=== PATIENT | male | born 1960 | race Caucasian/White ===

== ENCOUNTER 2017-12-09 05:13 | Inpatient (IN) | payer BC, SELFPAY ==
--- OUTSIDE RECORDS SUMMARY | 2017-12-09 05:15 | XMS REPORT | Clinical Summary ---
:1960 Author Organization [facility] Address [address] [place] [address] Phone Care Team Providers Name Role Phone Unavailable Primary Care Provider Unavailable Allergies No Known Allergies Current Medications Prescription Sig. Disp. Refills Start Date End Date Status METFORMIN HCL Take by mouth Active (METFORMIN ORAL) New RX will start today . HYDROcodone-acetaminop Take 1 tablet Active hen (NORCO 7.5-325) by mouth every 7.5-325 mg per tablet 6 (six) hours as needed for Pain. lisinopril Take 1 tablet 30 tablet 0 02/21/2016 02/20/2017 (PRINIVIL,ZESTRIL) 5 (5 mg total) by MG tablet mouth daily. 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
[2017-12-09 06:21] LABS: Absolute Lymphocytes (CBC) 1.8 K/uL (0.7-4.9); Absolute Monocytes 0.5 K/uL (0.1-1.3); Absolute Neutrophil 4.9 K/uL (1.8-8.0); Basophils % 0.6 % (0-1.3); Hematocrit 39.2 % (39.6-49.0); Lymphocytes % 24.7 % (15.3-44.8); MCH 30.8 pg (27.0-35.0); MCV 91.6 fL (80-100); MPV 9.3 fL (7.6-11.3); Monocytes % 6.2 % (3.3-12.3); RBC Red Blood Cell Count 4.28 M/uL (4.33-5.43)
[2017-12-09 06:52] LABS: ALT/SGPT 28 U/L (12-78); AST/SGOT 22 U/L (15-37); Albumin 3.6 g/dL (3.4-5.0); Alkaline Phosphatase 163 U/L (45-117); BUN Blood Urea Nitrogen 13 mg/dL (7-18); Bicarbonate 28 mmol/L (21-32); Bilirubin Direct 0.2 mg/dL (0-0.2); Bilirubin Total 0.5 mg/dL (0.2-1.0); Glucose Level 275 mg/dL (74-106); Potassium 4.3 mmol/L (3.5-5.1); Protein, Total 7.8 g/dL (6.4-8.2); Sodium Level 133 mmol/L (136-145)
[2017-12-09] MEDS ORDERED: PIPER/TAZO/NS 3.375gm 3.375 GM/100 ML BAG ONE (08:00)
[2017-12-09] MEDS ORDERED: VANCOMYCIN 1.75 GM in NA CHLORIDE 0.9% 500 ML IVPB ONE (09:00)
[2017-12-09] MEDS ORDERED: FENTANYL CITR 100 MCG/2 ML ONE (09:08)
--- NOTE | 2017-12-09 09:34 | RAD REPORT ---
EXAM DESCRIPTION: CT - Lower Ext Wo Con W/ Mpr - 12/09/2017 8:56 am CLINICAL HISTORY: Left foot and ankle pain with swelling x2 months. Lateral soft tissue wound. COMPARISON: December 09, 2017 x-ray TECHNIQUE: Computed axial tomography of the left lower extremity was performed with coronal and sagi ttal reconstruction All CT scans are performed using dose optimization technique as appropriate and may include automated exposure control or mA/KV adjustment according to patient size. FINDINGS: Extensive bony fragmentation involves the distal tibia/fibula, calcaneus and talus. The ta rochelle is dislocated medially with respect to the tibia. A talonavicular dislocation is present. There is extensive edema involving the ankle and foot. Extensive degenerative changes involve the midfoot. This consists of erosions, sclerosis and bony for No definite acute fracture is seen. Evaluation for osteomyelitis is difficult given the extensive bon y fragmentation without obvious visualization of osteomyelitis. IMPRESSION: Extensive bony fragmentation involves the ankle and hindfoot presumably representing a n europathic joint. A medial dislocation of the talus with respect to the tibia is present. A dislocation involves the talonavicular joint.
--- NOTE | 2017-12-09 09:43 | RAD REPORT ---
EXAM DESCRIPTION: RAD - Ankle Left 3 View -12/09/2017 6:28 am CLINICAL HISTORY: Left ankle pain FINDINGS: Extensive bony fragmentation involves the ankle and hindfoot. Presumably this is secondary to a neuropathic joint. Bony fragmentation also involves the midfoot. No acute fracture is visualized. Extensive soft tissue swelling is present The talus is dislocated medially to the tibia. A dislocation involves the talonavicular joint.
--- NOTE | 2017-12-09 09:43 | RAD REPORT ---
EXAM DESCRIPTION: RAD - Foot Left 3 View - 12/09/2017 6:29 am CLINICAL HISTORY: Left Foot pain FINDINGS: Extensive bony fragmentation involves the ankle and hindfoot. Presumably this is secondary to a neuropathic joint. Bony fragmentation also involves the midfoot. No acute fracture is visualized. Extensive soft tissue swelling is present The talus is dislocated medially to the tibia. A dislocation involves the talonavicular joint.
[2017-12-09 10:18] LABS: Urine Blood NEGATIVE (NEG); Urine Glucose 2+ (NEG); Urine Protein NEGATIVE (NEG); Urine Specific Gravity 1.025 (1.005-1.030); Urine pH 5.5 (5.0-7.0)
--- NOTE | 2017-12-09 10:39 | ER ---
Nurse's Notes [facility] Name: Vitaliy Cross Age: 57 yrs Sex: Male : 1960 Arrival Date: 12/09/2017 Time: 05:16 Bed 14 Private MD: Parth Black H Diagnosis: left ankle acute on chronic fracture and dislocation;Left ankle pressure ulcer;Hyperglycemia, unspecified Presentation: 12/09 05:15 Presenting complaint: Patient states: that for the past couple of months that his left fc ankle/foot have been swelling. Went to see Dr Black and was given Indomethacin. Then about 2 days ago he noticed a wound to the outer side of his left ankle. The pain and wound have gotten worse. Transition of care: patient was not received from another setting of care. Onset of symptoms was September 2017. Risk Assessment: Do you want to hurt yourself or someone else? Patient reports no desire to harm self or others. Initial Sepsis Screen: Does the patient meet any 2 criteria? No. Patient's initial sepsis screen is negative. Does the patient have a suspected source of infection? No. Patient's initial sepsis screen is negative. Care prior to arrival: None. 05:15 Method Of Arrival: Ambulatory 05:15 Acuity: LEVY 3 Triage Assessment: 05:15 General: Appears uncomfortable, obese, Behavior is calm, cooperative, appropriate for age. Pain: Complains of pain in left foot Pain currently is 4 out of 10 on a pain scale. at worst was 10 out of 10 on a pain scale. Quality of pain is described as aching, throbbing, Pain began 2 months ago Is continuous, Aggravated by increased activity, repositioning, weight bearing. EENT: No deficits noted. Neuro: Level of Consciousness is awake, alert, obeys commands, Oriented to person, place, time, situation. Cardiovascular: No deficits noted. Respiratory: No deficits noted. GI: No deficits noted. : No deficits noted. Derm: Skin is pink, warm \T\ dry. Wound noted left lateral malleolus Wound is open area with yellow tissue and yellow/red drainage. Musculoskeletal: Circulation, motion, and sensation intact. Capillary refill < 3 seconds, Range of motion: limited in left ankle Swelling present in left foot Reports pain in left foot. Historical: - Allergies: 05:40 Banana; fc - Home Meds: 05:40 indomethacin 50 mg Oral cap 1 cap 2 times per day [Active]; Metformin Oral 2 times per fc day [Active]; Glipizide Oral [Active]; - PMHx: 05:40 Diabetes - NIDDM; Hypertension; fc - PSHx: 05:40 Knee surgery; hand surg; fc - Immunization history:: Last tetanus immunization: up to date. - Social history:: Smoking status: Patient/guardian denies using tobacco, the patient reports quitting approximately .5 years ago. - Ebola Screening: : Patient negative for fever greater than or equal to 101.5 degrees Fahrenheit, and additional compatible Ebola Virus Disease symptoms Patient denies exposure to infectious person Patient denies travel to an Ebola-affected area in the 21 days before illness onset. Screenin:38 Abuse screen: Denies threats or abuse. Nutritional screening: No deficits noted. fc Tuberculosis screening: No symptoms or risk factors identified. Fall Risk No fall in past 12 months (0 pts). Secondary diagnosis (15 points) impaired mobility, IV access (20 points). Ambulatory Aid- Crutches/Cane/Walker (15 pts). Gait- Weak (10 pts.). Mental Status- Overestimates/Forgets Limitations (15 pts.). Total Greer Fall Scale indicates High Risk Score (45 or more points). Fall prevention measures have been instituted. Side Rails Up X 2 Placed Close to Nursing Station Frequent Obs/Assessments Occuring As available patient and family educated on Fall Prevention Program and Strategies. Assessment: 05:37 Reassessment: see triage assessment. 10:30 Reassessment: at bedside updating pt on POC and and need for admit, pt and pt sg family stated understanding. 11:35 Reassessment: Patient appears in no apparent distress at this time. Patient and/or sg family updated on plan of care and expected duration. Pain level reassessed. Patient is alert, oriented x 3, equal unlabored respirations, skin warm/dry/pink. office technologist at bedside at this time. Vital Signs: 05:37 BP 165 / 88; Pulse 83; Resp 18; Temp 98.1(O); Pulse Ox 100% on R/A; Weight 104.33 kg (R); Height 5 ft. 7 in. (170.18 cm) (R); Pain 4/10; 07:14 BP 135 / 76; Pulse 74; Resp 18; Pulse Ox 98% ; sv 13:32 BP 132 / 70; Pulse 77; Resp 17; Temp 98.1; Pulse Ox 100% on R/A; sg 05:37 Body Mass Index 36.02 (104.33 kg, 170.18 cm) ED Course: 05:16 Patient arrived in ED. al2 05:17 Parth Black DO is Private Physician. al2 05:30 Initial lab(s) drawn, by me, sent to lab. Inserted saline lock: 20 gauge in left fc antecubital area, using aseptic technique. Blood collected. 05:34 Triage completed. fc 05:37 Arm band placed on Patient placed in an exam room, on a stretcher. fc 05:38 Patient has correct armband on for positive identification. Bed in low position. Call fc light in reach. Pulse ox on. NIBP on. 05:47 Yony Montes MD is Attending Physician. ps1 05:48 Zain Rdz, RN is Primary Nurse. ao 06:09 EKG done, by ED staff, reviewed by Yony Montes MD. bb 06:25 X-ray completed. Portable x-ray completed in exam room. Patient tolerated procedure kw well. 06:26 Foot Left 3 View XRAY In Process Unspecified. EDMS 06:26 Ankle Left 3 View XRAY In Process Unspecified. EDMS 07:00 No provider procedures requiring assistance completed. sg 07:14 Attending Physician role handed off by Yony Montes MD wa 07:14 Anil Dave MD is Attending Physician. wa 07:16 Primary Nurse role handed off by Zain Rdz, RN sv 07:17 Mark River, MELVIN is Primary Nurse. sg 07:32 Basic Metabolic Panel Sent. sv 07:32 Blood Culture Adult (2) Sent. sv 07:32 C-Reactive Protein Sent. sv 07:32 CBC with Diff Sent. sv 07:32 Lactate Sent. sv 07:32 LFT's Sent. sv 07:32 Sed Rate Sent. sv 08:47 Patient moved to NC via wheelchair. kw1 08:56 Lower Ext Wo Con W/ Mpr In Process Unspecified. EDMS 10:36 Tex York DO is Hospitalizing Provider. wa 11:00 Patient admitted, IV remains in place. intact, No redness/swelling at site. Pressure sg dressing applied. 11:40 Ultrasound completed. Patient tolerated well. aa4 Administered Medications: 08:11 Drug: Zosyn 3.375 grams Route: IVPB; Infused Over: 60 mins; Site: right antecubital; sg 09:21 Follow up: Response: No adverse reaction; IV Status: Completed infusion sg 09:17 Drug: fentaNYL (PF) 50 mcg Route: IVP; Site: right antecubital; sg 09:30 Follow up: Response: No adverse reaction; Pain is decreased sg 09:21 Drug: vancoMYCIN 1 grams Route: IVPB; Infused Over: 2 hrs; Site: right antecubital; sg 12:10 Follow up: Response: No adverse reaction; IV Status: Completed infusion sg Outcome: 10:38 Decision to Hospitalize by Provider. wa 13:30 Admitted to Med/surg accompanied by tech, via stretcher, room 206, Report called to yvonne Ellison RN 13:30 Condition: stable 13:30 Instructed on the need for admit, safety practices, Demonstrated understanding of instructions. 13:39 Patient left the ED. snw Signatures: Dispatcher [employer] EDMS Rabia Galarza RN RN sv Gay, Steven, RN RN sg Therrien, Shelly, DISEASE EDUCATION SPECIALIST-C DISEASE EDUCATION SPECIALIST-Csnw Rupal Feilz RN Maria Guadalupe Franklin RN RN Kaye Villegas aaAlyson Alexander Alex, RN RN ao Appiah, William, MD MD wa Singer, Phillip, MD MD ps1 Wilhelm, Kimberly kw1 Love, Angelica al2
--- NOTE | 2017-12-09 10:39 | EDPHYS ---
Physician Documentation [facility] Name: Vitaliy Cross Age: 57 yrs Sex: Male : 1960 Arrival Date: 12/09/2017 Time: 05:16 Bed 14 Private MD: Parth Black H ED Physician Anil Dave HPI: 12/09 05:47 This 57 yrs old Male presents to ER via Ambulatory with complaints of Foot ps1 Pain. 05:47 2 month history of left foot swelling. Hx of DM and Gout. Called PCP this week as he ps1 now has an open sore on his foot. Did not get a call back so came in for evaluation. States his foot got more swollen over the last 2 weeks. Pain moderate. No fever. . Historical: - Allergies: 05:40 Banana; fc - Home Meds: 05:40 indomethacin 50 mg Oral cap 1 cap 2 times per day [Active]; Metformin Oral 2 times per fc day [Active]; Glipizide Oral [Active]; - PMHx: 05:40 Diabetes - NIDDM; Hypertension; fc - PSHx: 05:40 Knee surgery; hand surg; fc - Immunization history:: Last tetanus immunization: up to date. - Social history:: Smoking status: Patient/guardian denies using tobacco, the patient reports quitting approximately .5 years ago. - Ebola Screening: : Patient negative for fever greater than or equal to 101.5 degrees Fahrenheit, and additional compatible Ebola Virus Disease symptoms Patient denies exposure to infectious person Patient denies travel to an Ebola-affected area in the 21 days before illness onset. ROS: 05:47 Constitutional: Negative for fever, chills, and weight loss, Eyes: Negative for injury, ps1 pain, redness, and discharge, Cardiovascular: Negative for chest pain, palpitations, and edema, Respiratory: Negative for shortness of breath, cough, wheezing, and pleuritic chest pain, Abdomen/GI: Negative for abdominal pain, nausea, vomiting, diarrhea, and constipation. 05:47 Skin: Negative for injury, rash, and discoloration, Neuro: Negative for headache, weakness, numbness, tingling, and seizure. 05:47 MS/extremity: Positive for rash, tenderness, warmth. Exam: 05:47 Constitutional: This is a well developed, well nourished patient who is awake, alert, ps1 and in no acute distress. Head/Face: Normocephalic, atraumatic. Eyes: Pupils equal round and reactive to light, extra-ocular motions intact. Lids and lashes normal. Conjunctiva and sclera are non-icteric and not injected. Chest/axilla: Normal chest wall appearance and motion. Nontender with no deformity. No lesions are appreciated. Cardiovascular: Regular rate and rhythm. No gallops, murmurs, or rubs. Normal PMI, no JVD. No pulse deficits. Respiratory: Lungs have equal breath sounds bilaterally, clear to auscultation and percussion. No rales, rhonchi or wheezes noted. No increased work of breathing, no retractions or nasal flaring. 05:47 Musculoskeletal/extremity: Extremities: grossly normal except: noted in the left lateral malleolus and left foot: erythema, swelling, open wound with serous drainage. . Vital Signs: 05:37 BP 165 / 88; Pulse 83; Resp 18; Temp 98.1(O); Pulse Ox 100% on R/A; Weight 104.33 kg fc (R); Height 5 ft. 7 in. (170.18 cm) (R); Pain 4/10; 07:14 BP 135 / 76; Pulse 74; Resp 18; Pulse Ox 98% ; sv 13:32 BP 132 / 70; Pulse 77; Resp 17; Temp 98.1; Pulse Ox 100% on R/A; sg 05:37 Body Mass Index 36.02 (104.33 kg, 170.18 cm) MDM: 05:55 Patient medically screened. ps1 10:21 Differential diagnosis: fracture, sprain, osteoarthritis? fracture? dislocation?. Data wa reviewed: vital signs, nurses notes. Test interpretation: by ED physician or midlevel provider: labs noted for hyperglycemia and elevated CRP and SED rate. CT L ankle: Extensive bony fragments of L ankle and hind foot. Medial dislocation of talus with respect to tibia. talonavicular joint dislocation. Physician consultation: Tex York DO. Admission orders: after a detailed discussion of the patient's condition and case, the admit orders are written by me. ED course: IV abx given for concern of osteo. splint placed. suspect dislocation is chronic. pt w/ h/o untreated L ankle dislocation at age 19. will consult ortho.. 12/09 05:53 Order name: Basic Metabolic Panel ps1 12/09 05:53 Order name: Blood Culture Adult (2) ps1 12/09 05:53 Order name: C-Reactive Protein ps1 12/09 05:53 Order name: CBC with Diff ps1 12/09 05:53 Order name: Lactate ps1 12/09 05:53 Order name: LFT's ps1 12/09 05:53 Order name: Sed Rate ps1 12/09 05:53 Order name: Basic Metabolic Panel; Complete Time: 07:09 EDMS 12/09 05:53 Order name: Blood Culture EDMS 12/09 05:53 Order name: C-Reactive Protein; Complete Time: 07:09 EDMS 12/09 05:53 Order name: CBC with Automated Diff; Complete Time: 07:09 EDMS 12/09 05:53 Order name: Lactate; Complete Time: 07:09 EDMS 12/09 05:53 Order name: Liver (Hepatic) Function; Complete Time: 07:09 EDMS 12/09 05:53 Order name: Sedimentation Rate, Westergren; Complete Time: 07:09 EDMS 12/09 05:53 Order name: Cardiac monitoring; Complete Time: 05:54 ps1 12/09 05:53 Order name: EKG - Nurse/Tech; Complete Time: 06:09 ps1 12/09 05:53 Order name: IV Saline Lock - Large Bore; Complete Time: 05:54 ps1 12/09 05:53 Order name: Labs collected and sent; Complete Time: 06:09 ps1 12/09 05:53 Order name: O2 Per Protocol; Complete Time: 05:54 ps1 12/09 05:53 Order name: Foot Left 3 View XRAY; Complete Time: 10:18 ps1 12/09 05:54 Order name: Ankle Left 3 View XRAY; Complete Time: 10:18 ps1 12/09 07:42 Order name: Urine Dipstick--Ancillary (enter results) em1 12/09 08:37 Order name: Lower Ext Wo Con W/ Mpr; Complete Time: 10:16 EDMS 12/09 10:52 Order name: EKG Electrocardiogram EDMS 12/09 10:53 Order name: Diet Ada [address]; Complete Time: 10:54 sg 12/09 11:48 Order name: US EDMS 12/09 05:53 Order name: O2 Sat Monitoring; Complete Time: 05:54 ps1 12/09 05:53 Order name: Urine Dipstick-Ancillary (obtain specimen); Complete Time: 07:39 ps1 Administered Medications: 08:11 Drug: Zosyn 3.375 grams Route: IVPB; Infused Over: 60 mins; Site: right antecubital; sg 09:21 Follow up: Response: No adverse reaction; IV Status: Completed infusion sg 09:17 Drug: fentaNYL (PF) 50 mcg Route: IVP; Site: right antecubital; sg 09:30 Follow up: Response: No adverse reaction; Pain is decreased sg 09:21 Drug: vancoMYCIN 1 grams Route: IVPB; Infused Over: 2 hrs; Site: right antecubital; sg 12:10 Follow up: Response: No adverse reaction; IV Status: Completed infusion Disposition: 12/09/17 10:38 Hospitalization ordered by Tex York for Inpatient Admission. Preliminary diagnosis are left ankle acute on chronic fracture and dislocation, Left ankle pressure ulcer, Hyperglycemia, unspecified. - Bed requested for Telemetry/MedSurg (Inpatient). - Status is Inpatient Admission. snw - Condition is Stable. - Problem is an acute exacerbation. - Symptoms have improved. UTI on Admission? No Signatures: Dispatcher [employer] [facility] Heidy Sheth RN RN Mark River RN RN María Moffett FNP-C STRINGING MACHINE OPERATOR-Csnw Rupal Feliz RN RN Anil Dave MD MD ga Yony Montes MD MD ps1 Corrections: (The following items were deleted from the chart) 10:47 10:18 Splint ordered. [facility] 10:51 08:48 EKG Electrocardiogram ordered. [facility] 13:18 10:38 Hospitalization Ordered by Tex York DO for Inpatient Admission. Preliminary diagnosis is left ankle acute on chronic fracture and dislocation; Left ankle pressure ulcer; Hyperglycemia, unspecified. Bed requested for Telemetry/MedSurg (Inpatient). Status is Inpatient Admission. Condition is Stable. Problem is an acute exacerbation. Symptoms have improved. UTI on Admission? No. ga 13:39 13:18 12/09/2017 10:38 Hospitalization Ordered by Tex York DO for Inpatient snw Admission. Preliminary diagnosis is left ankle acute on chronic fracture and dislocation; Left ankle pressure ulcer; Hyperglycemia, unspecified. Bed requested for Telemetry/MedSurg (Inpatient). Status is Inpatient Admission. Condition is Stable. Problem is an acute exacerbation. Symptoms have improved. UTI on Admission? No. dw
[2017-12-09] MEDS ORDERED: ONDANSETRON 4 MG/2 ML VIAL IV PRN (11:06)
[2017-12-09] MEDS ORDERED: GLUCAGON 1 MG/VIAL IM PRN (11:06)
[2017-12-09] MEDS ORDERED: TRAMADOL HCL 50 MG TAB PO PRN (11:06)
[2017-12-09] MEDS ORDERED: ACETAMINOPHEN 500 MG TAB PO PRN (11:06)
[2017-12-09] MEDS ORDERED: D50W 25 GM/50 ML SYRINGE IV PRN (11:06)
[2017-12-09] MEDS ORDERED: VANCOMYCIN/NS 1 gm 1 GM/250 ML BAG IVPB SCH (11:15)
--- NOTE | 2017-12-09 11:26 | P.HP ---
Certification for Inpatient Patient admitted to: Inpatient With expected LOS: >2 Midnights Patient will require the following post-hospital care: Other Practitioner: I am a practitioner with admitting privileges, knowledge of patient current condition, hospital course, and medical plan of care. Services: Services provided to patient in accordance with Admission requirements found in Title 42 Section 412.3 of the Code of Federal Regulations Patient History Date of Service: 12/09/17 Primary Care Provider: Dr. Black Reason for admission: Left foot swelling with ulcer History of Present Illness: 57 yo CM presented to the ER with left foot swelling and ulcer. He reports that about 2 months ago he started to notice increased swelling to the left foot. It has been getting worse over time. He went to see his PCP. He was given medication for possible gout. The swelling did not improve. He then noted some skin changes over the last 3 days. He has an ulcer to the left malleoulus. Increased swelling, erythema is noted. SOme pain is also noted especially with walking. He had to use crutches recently. No fever or chills noted. Now swelling is also noted to the left lower ext up to the knee. He has DM, HTN. 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 In the ER he was evaluated. WBS is normal. BS is 275. ESR is elevated. X-ray and CT of the ankle and foot was done. He has extensive bony destruction to the left foot and ankle. He has dislocations to the talus and talonavicular joint. Pain is controlled. He has an ulcer to the left side. He was admitted for further evaluation and treatment. When I saw him, pain is controlled. He is stable. He is a former tobacco abuser. His DM is not well controlled. Allergies No Known Allergies Allergy (Unverified 02/12/16 01:00) Home medications list reviewed: Yes - Past Medical/Surgical History Diabetic: Yes -: DM Type 2 -: HTN -: Obesity -: History of partial right thumb amputation, secondary to MRSA -: Former tobacco use -: Alcohol use -: Partial thumb amputation -: Right knee replacement Psychosocial/ Personal History: He is single. No children. 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 - Family History Father -: Heart disease - Social History Smoking Status: Former smoker Alcohol use: Yes CD- Drugs: No Caffeine use: Yes Place of Residence: Home Review of Systems General: As per HPI Eyes: Unremarkable ENT: Unremarkable Respiratory: Unremarkable Cardiovascular: Unremarkable Genitourinary: Unremarkable Musculoskeletal: Foot Pain, Pedal edema, As per HPI Integumentary: As per HPI Neurological: As per HPI Lymphatics: Unremarkable Physical Examination - Physical Exam General: Alert, In no apparent distress, Oriented x3, Cooperative HEENT: Atraumatic, Normocephalic, PERRLA, Mucous membr. moist/pink Neck: Supple, No Thyromegaly Respiratory: Clear to auscultation bilaterally, Normal air movement Cardiovascular: Normal pulses, Regular rate/rhythm Gastrointestinal: Normal bowel sounds, Soft and benign, Non-distended, No tenderness, No masses, No rebound, No guarding Musculoskeletal: Other (Swelling to the left foot and lower ext up to the knee. ) Integumentary: Other (Ulcer to the left malleoulus. Swelling, erythema noted to the area near the ulcer. Pain is noted with palpation and with extension and flexion of foot. ) Neurological: Normal speech, Normal strength at 5/5 x4 extr, Normal tone, Normal affect - Studies Laboratory Data (last 24 hrs) 12/09/17 05:30: WBC 7.4, Hgb 13.2 L, Hct 39.2 L, Plt Count 201 12/09/17 05:30: Sodium 133 L, Potassium 4.3, BUN 13, Creatinine 0.80, Glucose 275 H, Total Bilirubin 0.5, AST 22, ALT 28, Alkaline Phosphatase 163 H Assessment and Plan - Problems (Diagnosis) (1) DM foot ulcer Current Visit: Yes Status: Acute Plan: Ulcer to the left malleolus area. Extensive edema, erythema noted. He has DM and history of MRSA. CT scan shows extensive bony destruction with dislocations of the ankle. Suspect osteomyelitis. Patient may also have Charcot arthropathy. Will consult Orthopedics to evaluate. Will start Vancomycin/Zosyn to cover for infection process. Will obtain Venous doppler to rule out DVT. Will obtain MRI to evaluate for osteomyelitis. Will need better DM control. Qualifiers: Diabetes mellitus type: type 2 Laterality: left Non-pressure ulcer stage : with other severity (2) Cellulitis Current Visit: Yes Status: Acute Plan: Continue as above Qualifiers: Site of cellulitis: extremity Laterality: left (3) Osteomyelitis Current Visit: Yes Status: Suspected Plan: History of MRSA in the past requiring partial amputation to the right thumb. Continue as above. Qualifiers: Osteomyelitis location: foot Laterality: left (4) Charcot foot due to diabetes mellitus Current Visit: Yes Status: Suspected Plan: Will obtain MRI. Will have Orthopedics evaluate. (5) Multiple dislocations Current Visit: Yes Status: Acute Plan: Will have Orthopedics assess. No weight bearing to the left lower ext. (6) Diabetes mellitus Current Visit: Yes Status: Chronic Plan: Will check A1c. Will start basal insulin. Will adjust medication. 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 Will start Coreg and adjust. Qualifiers: Hypertension type: essential hypertension Qualified Code(s): I10 - Essential (primary) hypertension (8) Obesity Current Visit: Yes Status: Chronic Plan: Will obtain BMI. Address lifestyle modifications. (9) History of MRSA infection Current Visit: Yes Status: Chronic Plan: Continue as above. (10) ROQUE-inhibitor cough Current Visit: Yes Status: Acute Plan: DC ROQUE inhibitor. Change medication for HTN Discharge Plan: Other (Home vs LTAC) Plan to discharge in: Greater than 2 days - Advance Directives Does patient have a Living Will: No Does patient have a Durable POA for Healthcare: No - Code Status/Comfort Care Code Status Assessed: Yes Time Spent Managing Pts Care (In Minutes): 55
--- NOTE | 2017-12-09 11:47 | RAD REPORT ---
EXAM DESCRIPTION: VAS - Extremity Venous Uni Ltd - 12/09/2017 11:39 am CLINICAL HISTORY: Left leg pain and swelling COMPARISON: None. TECHNIQUE: Real-time sonographic evaluation of the left lower extremity deep venous system was perfo rmed. FINDINGS: Normal compressibility, flow augmentation, phasic flow and spontaneous flow are identified in the left lower extremity deep venous system. No intraluminal filling defects seen. IMPRESSION: No DVT in the left lower extremity.
[2017-12-09] MEDS: NA CHLORIDE 0.9% 1,000 ML IV SCH ×2 (12:00→22:00)
[2017-12-09] MEDS: INSULIN -REGULAR HUMAN 50 UNIT/0.5 ML ML SQ SCH ×3 (13:00→21:00)
[2017-12-09] MEDS ORDERED: INSULIN -REGULAR HUMAN 50 UNIT/0.5 ML ML ONE (13:04)
[2017-12-09] MEDS ORDERED: NA CHLORIDE 0.9% 1,000 ML ONE (13:04)
[2017-12-09 14:35] VITALS: BMI 36.0
[2017-12-09] MEDS: ENOXAPARIN 40 MG/0.4 ML SQ SCH (18:00)
[2017-12-09] MEDS: PIPER/TAZO/NS 3.375gm 3.375 GM/100 ML BAG IVPB SCH (18:01)
[2017-12-09] MEDS: CARVEDILOL 3.125 MG TAB PO SCH (18:01)
[2017-12-09] MEDS: VANCOMYCIN 1.75 GM in NA CHLORIDE 0.9% 500 ML IVPB SCH (20:36)
[2017-12-10] MEDS ORDERED: NA CHLORIDE 0.9% 1,000 ML ONE (00:46)
[2017-12-10] MEDS: PIPER/TAZO/NS 3.375gm 3.375 GM/100 ML BAG IVPB SCH ×3 (00:46→17:10)
[2017-12-10 06:00] LABS: Absolute Lymphocytes (CBC) 1.6 K/uL (0.7-4.9); Absolute Monocytes 0.4 K/uL (0.1-1.3); Basophils % 0.6 % (0-1.3); Eosinophils % 3.3 % (0-4.4); Hematocrit 34.5 % (39.6-49.0); Lymphocytes % 21.2 % (15.3-44.8); MCH 31.1 pg (27.0-35.0); Monocytes % 5.9 % (3.3-12.3); RBC Red Blood Cell Count 3.75 M/uL (4.33-5.43)
[2017-12-10 06:30] LABS: BUN Blood Urea Nitrogen 10 mg/dL (7-18); Bicarbonate 30 mmol/L (21-32); Glucose Level 166 mg/dL (74-106); HDL Cholesterol 32 mg/dL (40-60); LDL Cholesterol, Calculated 103 (<130); Potassium 4.4 mmol/L (3.5-5.1); Sodium Level 137 mmol/L (136-145); Thyroid Stimulating Hormone 2.71 uIU/mL (0.36-3.74)
[2017-12-10] MEDS: PANTOPRAZOLE 40MG TABLET PO SCH (07:15)
[2017-12-10] MEDS: HYDROCODONE/APAP 7.5/325 MG TAB PO PRN ×3 (07:15→20:46)
[2017-12-10] MEDS: CARVEDILOL 3.125 MG TAB PO SCH ×2 (07:16→17:43)
[2017-12-10] MEDS: INSULIN -REGULAR HUMAN 50 UNIT/0.5 ML ML SQ SCH ×4 (07:30→21:00)
--- NOTE | 2017-12-10 07:41 | P.PN ---
Subjective Date of Service: 12/10/17 Primary Care Provider: Dr. Black Chief Complaint: Left foot swelling with ulcer Subjective: Other (Patient doing well today. Pain well controlled. Swelling to the left lower extremity improved.) Physical Examination - Vital Signs Temperature: 97.8 F Blood Pressure: 145/75 Pulse: 70 Respirations: 16 Pulse Ox (%): 97 - Physical Exam General: Alert, In no apparent distress, Oriented x3, Cooperative HEENT: Atraumatic, Mucous membr. moist/pink Neck: Supple Respiratory: Clear to auscultation bilaterally, Normal air movement Cardiovascular: Normal pulses, Regular rate/rhythm Gastrointestinal: Normal bowel sounds, Soft and benign, Non-distended, No masses , No rebound, No guarding Musculoskeletal: No warmth Integumentary: Other (Ulcer to the left ankle region improved. Swelling and erythema also improved to this area. Still with pain to the ankle region. Patient also has some inflammation to the shoulders bilateral. He is not able to fully extend his left upper extremity.) Neurological: Normal speech, Normal strength at 5/5 x4 extr, Normal tone, Normal affect - Studies Medications List Reviewed: Yes Assessment & Plan - Problems (Diagnosis) (1) DM foot ulcer Current Visit: Yes Status: Acute Plan: Ulcer to the left malleolus area. Extensive edema, erythema noted. MRI pending. Will need to rule out osteomyelitis. CT scan shows bony destruction with dislocations of the ankle. Patient currently on vancomycin and Zosyn. Will continue with antibiotic therapy. Await further recommendations from orthopedics. If positive for osteomyelitis well consult infectious disease for recommendation. He without any medical insurance. This may complicate his plan of care. He has DM and history of MRSA. Qualifiers: Diabetes mellitus type: type 2 Laterality: left Non-pressure ulcer stage : with other severity (2) Cellulitis Current Visit: Yes Status: Acute Plan: Continue as above. Erythema, swelling has improved. Will continue with antibiotic therapy. Await MRI results. Qualifiers: Site of cellulitis: extremity Laterality: left (3) Osteomyelitis Current Visit: Yes Status: Suspected Plan: History of MRSA in the past requiring partial amputation to the right thumb. Continue as above. Qualifiers: Osteomyelitis location: foot Laterality: left (4) Charcot foot due to diabetes mellitus Current Visit: Yes Status: Suspected Plan: Await MRI results. Await orthopedic evaluation and recommendation. (5) Multiple dislocations Current Visit: Yes Status: Acute Plan: Will have Orthopedics assess. No weight bearing to the left lower ext. (6) Diabetes mellitus Current Visit: Yes Status: Chronic Plan: Will check A1c. Will continue to adjust basal insulin. 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 Blood pressure controlled with carvedilol. Qualifiers: Hypertension type: essential hypertension Qualified Code(s): I10 - Essential (primary) hypertension (8) Obesity Current Visit: Yes Status: Chronic Plan: Continue to address lifestyle modification education. Qualifiers: Obesity type: due to excess calories Obesity classification: adult class 2 (BMI 35 - 39.9) Serious obesity comorbidity presence: with serious comorbidity Body mass index: BMI 36.0-36.9 Qualified Code(s): E66.01 - Morbid (severe) obesity due to excess calories; Z68.36 - Body mass index (BMI) 36.0-36.9, adult (9) History of MRSA infection Current Visit: Yes Status: Chronic Plan: Continue as above. (10) ROQUE-inhibitor cough Current Visit: Yes Status: Acute Plan: DC ROQUE inhibitor. Change medication for HTN (11) Shoulder pain Current Visit: Yes Status: Acute Plan: Patient has chronic bilateral shoulder pain. Deformities noted. Will obtain shoulder x-ray s. Will have orthopedics addressed. Will evaluate for rheumatological causes. Qualifiers: Chronicity: chronic Laterality: bilateral Qualified Code(s): M25.511 - Pain in right shoulder; M25.512 - Pain in left shoulder; G89.29 - Other chronic pain Discharge Plan: Home Plan to discharge in: Greater than 2 days Time Spent Managing Pts Care (In Minutes): 55
[2017-12-10] MEDS: NA CHLORIDE 0.9% 1,000 ML IV SCH ×2 (08:00→17:11)
--- NOTE | 2017-12-10 08:39 | RAD REPORT ---
EXAM DESCRIPTION: MRI - Foot Left Wo Cont - 12/09/2017 5:44 pm CLINICAL HISTORY: Lateral left foot ulcer, left foot Charcot joint COMPARISON: CT study December 09, left foot films December 09 TECHNIQUE: Multi planer imaging of the foot performed using T1 weighted, T2 fat saturation, T1 fat s aturation and T2 stir sequencing. FINDINGS: Patient has underlying Charcot joint destructive changes. Bone loss changes are seen in th e talus and anterior superior calcaneus. Subluxation deformities are present. There is bone loss lindsay g the anterior inferior tibia. Hypointense T1 and hyperintense T2 edema signal is present in the calc aneus, remnant talus bone navicular bone, cuboid bone and lateral cuneiform bone. Patchy hypointense T1 and hyperintense T2 signal abnormalities are present in the metatarsal bones. Phalanges are genera lly spared of any significant disease. There is a large 6-7 centimeter fluid collection the conforms to the dorsal lateral margin of the mid foot. Diffuse edema present throughout the foot. Clinical history indicates cutaneous wound lateral malleolus. The fibula shows comparatively little s ignal abnormality. The overall marrow signal abnormality widely distributed through the midfoot is fa vored to be due to the underlying Charcot joint destructive process. There is significant overlap in the appearance of and active Charcot joint and osteomyelitis. Collective findings favor a non infecti ous etiology. IMPRESSION: Active Charcot joint destructive changes are present in the ankle and midfoot as detaile d. There are bone destructive changes and medial subluxation deformity of the talus relative to the t ibia. Large 6-7 mm drainable fluid collection along the dorsal lateral margin of the midfoot. This could be reactive fluid collection, abscess or a combination. The fibula, near the reported lateral malleolus cutaneous lesion shows relatively mild signal abnorma lity compared to elsewhere in the foot. There is significant overlap in the appearance of a osteomyelitis and active Charcot joint signal abn ormality. Current findings are consistent with Charcot joint signal abnormality. No specific finding to elevate probability of osteomyelitis over Charcot joint related signal abnormality.
[2017-12-10] MEDS: VANCOMYCIN 1.75 GM in NA CHLORIDE 0.9% 500 ML IVPB SCH ×2 (09:16→20:47)
[2017-12-10] MEDS: INSULIN DETEMIR 100 UNIT/1 ML INSULIN SQ SCH (09:16)
--- NOTE | 2017-12-10 11:01 | RAD REPORT ---
EXAM DESCRIPTION: RAD - Shoulder Right 2 View - 12/10/2017 9:21 am CLINICAL HISTORY: Right shoulder pain FINDINGS: Marked osteoarthritis involves the glenohumeral joint consisting of joint space narrowing, osteophyte s and subchondral sclerosis. The acromioclavicular space is widened presumably secondary to an old ligamentous injury. The coracoc lavicular space is also widened indicative of an additional ligamentous injury. Again it probably is old. Bony densities adjacent to the distal clavicle likely are chronic.
--- NOTE | 2017-12-10 11:03 | RAD REPORT ---
EXAM DESCRIPTION: RAD - Shoulder Left 2 View - 12/10/2017 9:21 am CLINICAL HISTORY: Left shoulder pain FINDINGS: No fracture or dislocation is seen. Marked osteoarthritis involves the glenohumeral joint consisting joint space narrowing, subchondral s clerosis and osteophytes. Moderate osteoarthritis involves the acromioclavicular joint. The humeral head is high riding indicative of a chronic rotator cuff tear. A 9.3 centimeter oval soft tissue mass is suspected along the superior aspect of the left shoulder.
[2017-12-10] MEDS: ENOXAPARIN 40 MG/0.4 ML SQ SCH (17:10)
--- NOTE | 2017-12-10 17:40 | CON ---
History Of Present Illness: The patient is here for left ankle swelling and cellulitis, which starte d Thursday. 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 According to him, he dislocated multiple ti mes his left ankle. He has significant past medical history of diabetes and tobacco use. Denies any headache, nausea, vomiting, chest pain, abdominal pain, constipation, or diarrhea. No fevers at thi s time. Past Medical History: Diabetes mellitus, hypertension, obesity, partial right thumb amputation secon senia to MRSA infection, tobacco use, alcohol use, right knee replacement. Social History: Tobacco positive. Alcohol positive. Family History: Noncontributory. Medications: Zosyn and vancomycin. See MARs for other medication. Allergies: NO KNOWN DRUG ALLERGIES. Review of Systems: A 10-point review was performed. Physical Examination: General: This is a 57-year-old male, sitting in bed, not in any acute cardiopulmonary distress. Vital Signs: Temperature 98, pulse 78, respirations 16. HEENT: Unremarkable. Neck: Supple. Lungs: Clear to auscultation. Heart: S1, S2. Regular. Abdomen: Soft. Bowel sounds present. Extremities: 3+ edema in the ankle region and foot. Diagnostic Data: MRI of the foot shows active Charcot joint destruction. Destructive changes are pr esent in the ankle and midfoot. As detailed, bone destructive changes and medial subluxation deformi ty of the talus relative to tibia, large 6-7 mm drainable fluid collection. According to surgical te am, large amount of blood was drained. There is a significant overlap and appearance of osteomyeliti s and active Charcot joint. Assessment And Plan: A 57-year-old male with multiple left ankle injuries, coming in with possible c ellulitis and infection after possible trauma to the left ankle aggravating old injuries. Agree to c ontinue IV antibiotic and keeping leg elevated. Can be switched to oral antibiotic on discharge. Co nsider using Levaquin and clindamycin. Diabetes control. We will follow the patient closely. Thank you Dr. York for consult. NF/MODL Voice ID: [id number] Report ID: [id number]
[2017-12-10 22:35] LABS: Rheumatoid Factor NEG (NEG)
[2017-12-11] MEDS: PIPER/TAZO/NS 3.375gm 3.375 GM/100 ML BAG IVPB SCH ×2 (00:49→08:23)
[2017-12-11 04:59] LABS: Absolute Lymphocytes (CBC) 1.7 K/uL (0.7-4.9); Absolute Monocytes 0.4 K/uL (0.1-1.3); Absolute Neutrophil 4.3 K/uL (1.8-8.0); Basophils % 0.5 % (0-1.3); Eosinophils % 2.5 % (0-4.4); Lymphocytes % 25.5 % (15.3-44.8); MCH 30.7 pg (27.0-35.0); MCV 91.3 fL (80-100); MPV 8.9 fL (7.6-11.3); Monocytes % 6.6 % (3.3-12.3); RBC Red Blood Cell Count 3.51 M/uL (4.33-5.43)
[2017-12-11 05:23] LABS: BUN Blood Urea Nitrogen 9 mg/dL (7-18); Bicarbonate 27 mmol/L (21-32); Glucose Level 127 mg/dL (74-106); Potassium 3.8 mmol/L (3.5-5.1); Sodium Level 139 mmol/L (136-145)
[2017-12-11] MEDS: PANTOPRAZOLE 40MG TABLET PO SCH (05:44)
[2017-12-11] MEDS: CARVEDILOL 3.125 MG TAB PO SCH (05:44)
[2017-12-11] MEDS: NA CHLORIDE 0.9% 1,000 ML IV SCH ×2 (05:46→14:00)
[2017-12-11] MEDS ORDERED: POTASSIUM 25 MEQ EFFERV TAB PO ONE (05:48)
[2017-12-11] MEDS: INSULIN -REGULAR HUMAN 50 UNIT/0.5 ML ML SQ SCH ×2 (07:30→11:30)
[2017-12-11] MEDS: HYDROCODONE/APAP 7.5/325 MG TAB PO PRN ×2 (08:22→14:16)
[2017-12-11] MEDS: VANCOMYCIN 1.75 GM in NA CHLORIDE 0.9% 500 ML IVPB SCH (08:23)
[2017-12-11] MEDS: INSULIN DETEMIR 100 UNIT/1 ML INSULIN SQ SCH (08:23)
--- NOTE | 2017-12-11 08:44 | P.DS ---
Admission Date: 12/09/17 Discharge Date: 12/11/17 Primary Care Provider: Dr. Black Disposition: ROUTINE DISCHARGE Discharge Condition: GOOD Reason for Admission: Left foot swelling with ulcer Consultations: Orthopedics-Dr. Jon Infectious disease-Dr. Mendez Procedures: Venous Doppler: No DVT noted. MRI: FINDINGS: Patient has underlying Charcot joint destructive changes. Bone loss changes are seen in the talus and anterior superior calcaneus. Subluxation deformities are present. There is bone loss along the anterior inferior tibia. Hypointense T1 and hyperintense T2 edema signal is present in the calcaneus, remnant talus bone navicular bone, cuboid bone and lateral cuneiform bone. Patchy hypointense T1 and hyperintense T2 signal abnormalities are present in the metatarsal bones. Phalanges are generally spared of any significant disease. There is a large 6-7 centimeter fluid collection the conforms to the dorsal lateral margin of the midfoot. Diffuse edema present throughout the foot. Clinical history indicates cutaneous wound lateral malleolus. The fibula shows comparatively little signal abnormality. The overall marrow signal abnormality widely distributed through the midfoot is favored to be due to the underlying Charcot joint destructive process. There is significant overlap in the appearance of and active Charcot joint and osteomyelitis. Collective findings favor a non infectious etiology. IMPRESSION: Active Charcot joint destructive changes are present in the ankle and midfoot as detailed. There are bone destructive changes and medial subluxation deformity of the talus relative to the tibia. Large 6-7 mm drainable fluid collection along the dorsal lateral margin of the midfoot. This could be reactive fluid collection, abscess or a combination. The fibula, near the reported lateral malleolus cutaneous lesion shows relatively mild signal abnormality compared to elsewhere in the foot. There is significant overlap in the appearance of a osteomyelitis and active Charcot joint signal abnormality. Current findings are consistent with Charcot joint signal abnormality. No specific finding to elevate probability of osteomyelitis over Charcot joint related signal abnormality. Shoulder x-ray: FINDINGS LEFT: No fracture or dislocation is seen. Marked osteoarthritis involves the glenohumeral joint consisting joint space narrowing, subchondral sclerosis and osteophytes. Moderate osteoarthritis involves the acromioclavicular joint. The humeral head is high riding indicative of a chronic rotator cuff tear. A 9.3 centimeter oval soft tissue mass is suspected along the superior aspect of the left shoulder FINDINGS RIGHT: Marked osteoarthritis involves the glenohumeral joint consisting of joint space narrowing, osteophytes and subchondral sclerosis. The acromioclavicular space is widened presumably secondary to an old ligamentous injury. The coracoclavicular space is also widened indicative of an additional ligamentous injury. Again it probably is old. Bony densities adjacent to the distal clavicle likely are chronic. - Problems (1) DM foot ulcer Onset Date: 12/10/17 Current Visit: Yes Status: Acute Qualifiers: Diabetes mellitus type: type 2 Laterality: left Non-pressure ulcer stage : with other severity (2) Cellulitis Onset Date: 12/10/17 Current Visit: Yes Status: Acute Qualifiers: Site of cellulitis: extremity Laterality: left (3) Charcot foot due to diabetes mellitus Onset Date: 12/10/17 Current Visit: Yes Status: Acute (4) Multiple dislocations Onset Date: 12/10/17 Current Visit: Yes Status: Acute (5) Diabetes mellitus Onset Date: 12/10/17 Current Visit: Yes Status: Chronic Qualifiers: Diabetes mellitus type: type 2 Diabetes mellitus fci insulin use: without fci use Diabetes mellitus complication status: with other specified complication Qualified Code(s): E11.69 - Type 2 diabetes mellitus with other specified complication (6) HTN (hypertension) Onset Date: 12/10/17 Current Visit: Yes Status: Chronic Qualifiers: Hypertension type: essential hypertension Qualified Code(s): I10 - Essential (primary) hypertension (7) Obesity Onset Date: 12/10/17 Current Visit: Yes Status: Chronic Qualifiers: Obesity type: due to excess calories Obesity classification: adult class 2 (BMI 35 - 39.9) Serious obesity comorbidity presence: with serious comorbidity Body mass index: BMI 36.0-36.9 Qualified Code(s): E66.01 - Morbid (severe) obesity due to excess calories; Z68.36 - Body mass index (BMI) 36.0-36.9, adult (8) History of MRSA infection Onset Date: 12/10/17 Current Visit: Yes Status: Chronic (9) [place]-inhibitor cough Onset Date: 12/10/17 Current Visit: Yes Status: Acute (10) Shoulder pain Current Visit: Yes Status: Acute Qualifiers: Chronicity: chronic Laterality: bilateral Qualified Code(s): M25.511 - Pain in right shoulder; M25.512 - Pain in left shoulder; G89.29 - Other chronic pain (11) Rotator cuff arthropathy of left shoulder Current Visit: Yes Status: Chronic (12) Mass Current Visit: Yes Status: Chronic Brief History of Present Illness: 57 yo CM presented to the ER with left foot swelling and ulcer. He reports that about 2 months ago he started to notice increased swelling to the left foot. It has been getting worse over time. He went to see his PCP. He was given medication for possible gout. The swelling did not improve. He then noted some skin changes over the last 3 days. He has an ulcer to the left malleoulus. Increased swelling, erythema is noted. SOme pain is also noted especially with walking. He had to use crutches recently. No fever or chills noted. Now swelling is also noted to the left lower ext up to the knee. He has DM, HTN. 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 In the ER he was evaluated. WBS is normal. BS is 275. ESR is elevated. X-ray and CT of the ankle and foot was done. He has extensive bony destruction to the left foot and ankle. He has dislocations to the talus and talonavicular joint. Pain is controlled. He has an ulcer to the left side. He was admitted for further evaluation and treatment. When I saw him, pain is controlled. He is stable. He is a former tobacco abuser. His DM is not well controlled. Hospital Course: The patient was treated for cellulitis to the left lower extremity. Charcot arthropathy was suspected. Osteomyelitis was also suspected. MRI showed acute Charcot joint with destructive changes in the ankle and midfoot. Bony destructive changes and medial subluxation deformity of the talus relative to the tibia was noted. A large 6-7 mm drainable fluid collection along the dorsal lateral margin of the midfoot was noted. This is likely reactive in nature. Patient evaluated by orthopedics and infectious disease. Orthopedics aspirated the fluid collection it was blood. This is likely reactive from the bony destruction. Osteomyelitis less likely. Due to his Charcot arthropathy, orthopedics recommended options including amputation verses reconstructive surgery. Reconstructive surgery would have to be done at a higher level of care center. Patient received IV antibiotic therapy. Erythema, pain, and swelling improved. Patient did not desire amputation. At discharge patient will continue with Cipro 500 mg 1 pill twice daily and clindamycin 300 mg 3 times a day for 6 weeks. Patient will need to keep his leg elevated when sitting or lying. Patient will also take pro biotics during this time. Orthopedics recommends that the patient be seen as an outpatient with specialty orthopedics dealing with Charcot arthropathy. Orthopedics recommended a physician at [facility]. Patient plans to follow up with the physician. Prior to discharge orthopedics placed a splint to the left lower extremity. He is not to bear weight on the foot. He is to follow up with orthopedics closely. Patient has an ulcer to the left lateral ankle area. Patient may follow up at the wound Care Center to follow this closely. Patient has diabetes. Hemoglobin A1c 8.6. Better diabetic control was recommended. Recommendation is to maintain blood sugars less 140 fasting and less drip after meals. Further adjustment in medication can be done by his PCP. Patient has hypertension. Medications have been adjusted. Patient will no longer take lisinopril due to [place] cough. At discharge he will continue with carvedilol 3.125 mg 1 pill twice daily and Norvasc 5 mg daily. Recommendation is to maintain blood pressures less 150/80. Further adjustment can be done by his PCP. Patient also has shoulder arthritic changes bilateral. Marked osteoarthritis involving shoulder joints noted bilateral. Chronic rotator cuff tear noted on the left side. A 9.3 cm oval soft tissue mass suspected to the superior aspect of the left shoulder. This is likely benign as the patient reports this has been there for many years. This can be followed up as an outpatient. Vital Signs/Physical Exam: Temp Pulse Resp BP Pulse Ox 97.1 F 64 18 140/72 99 12/11/17 04:00 12/11/17 05:44 12/11/17 04:00 12/11/17 05:44 12/11/17 04:00 General: Alert, In no apparent distress, Oriented x3, Cooperative HEENT: Atraumatic Neck: Supple Respiratory: Clear to auscultation bilaterally, Normal air movement Cardiovascular: Normal pulses, Regular rate/rhythm Gastrointestinal: Normal bowel sounds, Soft and benign, Non-distended, No tenderness, No masses, No rebound, No guarding Musculoskeletal: Other (Chronic arthritic changes to the shoulders bilateral. Mass noted to the left shoulder region.) Integumentary: Other (Ulcer to the left ankle region on the left side improved. Swelling, erythema also improved to the left lower extremity.) Neurological: Normal speech, Normal strength at 5/5 x4 extr, Normal tone, Normal affect Laboratory Data at Discharge: WBC 6.7 K/uL (4.3-10.9) 12/11/17 04:20 Hgb 10.8 g/dL (13.6-17.9) L 12/11/17 04:20 Hct 32.0 % (39.6-49.0) L 12/11/17 04:20 Plt Count 165 K/uL (152-406) 12/11/17 04:20 Sodium 139 mmol/L (136-145) 12/11/17 04:20 Potassium 3.8 mmol/L (3.5-5.1) 12/11/17 04:20 BUN 9 mg/dL (7-18) 12/11/17 04:20 Creatinine 0.60 mg/dL (0.55-1.3) 12/11/17 04:20 Glucose 127 mg/dL (74-106) H 12/11/17 04:20 Magnesium 2.0 mg/dL (1.8-2.4) 12/11/17 04:20 Total Bilirubin 0.5 mg/dL (0.2-1.0) 12/09/17 05:30 AST 22 U/L (15-37) 12/09/17 05:30 ALT 28 U/L (12-78) 12/09/17 05:30 Alkaline Phosphatase 163 U/L (45-117) H 12/09/17 05:30 Triglycerides 198 mg/dL (<150) H 12/10/17 05:22 Cholesterol 175 mg/dL (<200) 12/10/17 05:22 HDL Cholesterol 32 mg/dL (40-60) L 12/10/17 05:22 Cholesterol/HDL Ratio 5.47 12/10/17 05:22 Home Medications: Amlodipine [Norvasc*] 5 mg PO DAILY #30 tab 12/11/17 Carvedilol [Coreg*] 3.125 mg PO BID 6AM 6PM #60 tab 12/11/17 Ciprofloxacin HCl [Cipro 500 MG Tablet] 500 mg PO BID #84 tab 12/11/17 Clindamycin HCl 300 mg PO BID #84 capsule 12/11/17 Glipizide [Glucotrol] 5 mg PO BIDWM #60 tablet 12/11/17 Lactobacillus Acidophilus [Acidophilus Lactobacilli] 1 each PO TID #90 capsule 12/11/17 Metformin HCl 1,000 mg PO BIDWM #60 tablet 12/11/17 traMADol HCL [Ultram*] 50 mg PO TID PRN #20 tab 12/11/17 New Medications: Amlodipine [Norvasc*] 5 mg PO DAILY #30 tab Carvedilol [Coreg*] 3.125 mg PO BID 6AM 6PM #60 tab Ciprofloxacin HCl [Cipro 500 MG Tablet] 500 mg PO BID #84 tab Clindamycin HCl 300 mg PO BID #84 capsule Glipizide [Glucotrol] 5 mg PO BIDWM #60 tablet Lactobacillus Acidophilus [Acidophilus Lactobacilli] 1 each PO TID #90 capsule Metformin HCl 1,000 mg PO BIDWM #60 tablet traMADol HCL [Ultram*] 50 mg PO TID PRN #20 tab PRN Reason: Pain Mild Patient Discharge Instructions: 1. Patient will need a follow up his PCP in 1 week to follow up this hospitalization. 2. The patient presented with swelling , erythema and ulcer to the left foot. Patient found to have acute Charcot arthropathy. MRI showed acute Charcot joint with destructive changes in the ankle and midfoot. Bony destructive changes and medial subluxation deformity of the talus relative to the tibia was noted. A large 6-7 mm drainable fluid collection along the dorsal lateral margin of the midfoot was noted. This is likely reactive in nature. Patient evaluated by orthopedics and infectious disease. No intervention was required at this time. Patient responded to IV antibiotic therapy. At discharge patient will continue with Cipro 500 mg 1 pill twice daily, clindamycin 300 mg 1 pill twice daily for 6 weeks. Patient will continue with pro biotics as well. Patient will need to keep his leg elevated when sitting or lying. Orthopedics recommends that the patient be seen as an outpatient with specialty orthopedic dealing with Charcot arthropathy. Orthopedics recommended a physician at [facility]. He will need a follow up with a specialist as the patient will require surgical intervention in the future. Prior to discharge orthopedics placed a splint to the left lower extremity. He is not to bear weight on the foot. Patient will need to use crutches. He is to follow up with orthopedics closely. Patient has an ulcer to the left lateral ankle area. Patient may follow up at the wound Care Center to follow this closely. He is to continue with current wound care. 3. Patient has diabetes. Hemoglobin A1c 8.6. Better diabetic control was recommended. Patient will continue with glipizide 5 mg 1 pill twice daily and Glucophage 1000 mg 1 pill twice daily. Recommendation is to maintain blood sugars less 140 fasting and less drip after meals. Further adjustment in medication can be done by his PCP. 4. Patient has hypertension. Medications have been adjusted. Patient will no longer take lisinopril due to [place] cough. At discharge he will continue with carvedilol 3.125 mg 1 pill twice daily and Norvasc 5 mg daily. Recommendation is to maintain blood pressures less 150/80. Further adjustment can be done by his PCP. 5. Patient also has shoulder arthritic changes bilateral. Marked osteoarthritis involving shoulder joints noted bilateral. Chronic rotator cuff tear noted on the left side. A 9.3 cm oval soft tissue mass to the superior aspect of the left shoulder was identified. This is likely benign as the patient reports this has been there for many years. This can be followed up as an outpatient. Diet: ADA Activity: Non-weight bearing (To the left lower extremity) Time spent managing pt's care (in minutes): 55
[2017-12-11 08:45] VITALS: O2SAT 98
[2017-12-11 12:17] VITALS: BP 182/82; TEMP 97.7
--- NOTE | 2017-12-11 12:22 | CON ---
Date of Consultation: 12/10/2017 INITIAL CONSULTATION AND PROCEDURE NOTE History Of Present Illness: This is my first time seeing this patient to my knowledge. He is a 57-y ear-old male, who unfortunately has been having trouble with the left foot for sometime. He started developing a deformity as well as pain. He developed a sore on the outside aspect of his ankle and w as admitted on the for this problem. He has longstanding diabetes. He does have decreased sens ation in his foot. His foot is obviously deformed with subluxation of the foot on the tibia. He als o has a small open area on the lateral aspect of his ankle without exposed bone. There is diffuse sw elling of the foot as well as a large amount of swelling directly overlying the extensor digitorum br whitney muscle. Pain level is minimal with manipulation or movement of the foot. Review of x-rays and MRI demonstrate a Charcot foot with multiple fractures as well as subluxations of the bones and joint s as well as degenerative changes, which were reflective of this longstanding process. Assessment: This is a 57-year-old male with probable Charcot foot by MRI as well as x-ray. We did d rain under sterile technique after verbal informed consent approximately 10 cc of old blood from this area, which was localized on MRI and physical examination as being possibly drainable fluid. This f luid is absolutely consistent with old blood. There was no sign of purulence. This is a 57-year-old male, now with a Charcot foot and ankle consistent with diabetic neuropathy wit h deformity. He does have a small open area on the outside and a local wound care for the outside wo uld be considered. Also, we would consider antibiotics. I do not believe that the destructive proce ss in his foot is related to infection of any type. I do believe that this is related to diabetic Ch arcot arthropathy. Plan: At this time, he is given the 2 options, which were able to assist with him here, one is to pl idalia him in a splint and have him follow up with a foot and ankle surgeon. The other option is to pro ceed with below-knee amputation. The patient at this time does not wish to consider any below-knee a mputation and really is probably not medically indicated because there may be a chance that extensive reconstructive processes could be undertaken whether or not these would be successful would be for b oth he and the foot and ankle subspecialist to decide on, and I think a below-knee amputation is a li ttle bit aggressive at this point unless he starts developing a serious infection or some sort of oth er life-threatening issue, maybe able to treat this with reconstructive surgery and possibly adaptive footwear. He says he understands everything as presented. I will speak with Dr. York. /MARGARITA Voice ID: [id number] Report ID: [id number]
[2017-12-12] MEDS ORDERED: AMLODIPINE 5 MG TAB PO SCH (09:00)
== END 2017-12-11 14:24 | disposition home or self-care (01) | DRG 74 ==
LOC: ER 05:13 → ERHOLD 10:55 → 2ND 13:35
PROVIDERS: ADMIT Family Medicine; ATTEND Family Medicine
PROC: 0Y9N3ZX Drainage of Left Foot, Percutaneous Approach, Diagnostic (ICD-10-PCS; principal; 2017-12-10)
DX: E11.610 Type 2 diabetes mellitus with diabetic neuropathic arthropathy (principal); L03.116 Cellulitis of left lower limb; E11.621 Type 2 diabetes mellitus with foot ulcer; L97.521 Non-pressure chronic ulcer of other part of left foot limited to breakdown of skin; E11.65 Type 2 diabetes mellitus with hyperglycemia; I10 Essential (primary) hypertension; E66.01 Morbid (severe) obesity due to excess calories; Z68.36 Body mass index [BMI] 36.0-36.9, adult; Z86.14 Personal history of Methicillin resistant Staphylococcus aureus infection; R05 Cough; M75.102 Unspecified rotator cuff tear or rupture of left shoulder, not specified as traumatic; M24.372 Pathological dislocation of left ankle, not elsewhere classified; Z87.891 Personal history of nicotine dependence; M19.012 Primary osteoarthritis, left shoulder; M19.011 Primary osteoarthritis, right shoulder; T46.4X5A Adverse effect of angiotensin-converting-enzyme inhibitors, initial encounter
CPT/HCPCS: 36415; 73700; 76377; 80048; 80061; 80076; 80202; 81003; 82962; 83036; 83605; 83735; 84145; 84439; 84443; 85025; 85652; 86038; 86140; 86430; 87040; 93005; 93971; 96365; 96366; 96367; 96375; 99285; J1650; J2543; J3010; J7030

== ENCOUNTER 2017-12-30 12:27 | Emergency (ER) | payer SELFPAY ==
--- OUTSIDE RECORDS SUMMARY | 2017-12-30 12:29 | XMS REPORT | Clinical Summary ---
:1960 Author Organization [facility] Address [address] [place] [address] Phone Care Team Providers Name Role Phone [...] Not on file Results Not on fileafter 12/29/2016
[2017-12-30 13:46] LABS: Absolute Lymphocytes (CBC) 0.9 K/uL (0.7-4.9); Absolute Neutrophil 8.1 K/uL (1.8-8.0); Basophils % 0.3 % (0-1.3); Eosinophils % 0.8 % (0-4.4); Hematocrit 32.9 % (39.6-49.0); MCH 31.1 pg (27.0-35.0); MPV 8.8 fL (7.6-11.3); Monocytes % 9.6 % (3.3-12.3); RBC Red Blood Cell Count 3.69 M/uL (4.33-5.43)
[2017-12-30] MEDS ORDERED: NA CHLORIDE 0.9% 500 ML ONE (13:46)
[2017-12-30 13:50] LABS: Protime INR 1.37
[2017-12-30 13:59] LABS: Potassium 4.2 mmol/L (3.5-5.1)
--- NOTE | 2017-12-30 14:13 | RAD REPORT ---
EXAM DESCRIPTION: RAD - Ankle Left 3 View -12/30/2017 1:59 pm CLINICAL HISTORY: Left ankle pain and swelling FINDINGS: An ulceration involves the lateral soft tissue. Lucency is present within the lateral mall eolus probably representing osteomyelitis. Chronic dislocation of the ankle and hindfoot is seen. Extensive bony fragmentation involves the ankle and hindfoot likely indicating a neuropathic joint.
--- NOTE | 2017-12-30 14:15 | RAD REPORT ---
EXAM DESCRIPTION: RAD - Foot Left 2 View - 12/30/2017 1:59 pm CLINICAL HISTORY: Left Foot pain and swelling FINDINGS: An ulceration involves the lateral soft tissue. Lucency is present within the lateral mall eolus probably representing osteomyelitis. Chronic dislocation of the ankle and hindfoot is seen. Extensive bony fragmentation involves the ankle and hindfoot likely indicating a neuropathic joint. Degenerative changes involve the tarsometatarsal joint.
[2017-12-30] MEDS ORDERED: MEPERIDINE HCL 25 MG/0.5 ML ONE (14:32)
[2017-12-30] MEDS ORDERED: VANCOMYCIN 1 GM/250 ML BAG ONE (14:32)
[2017-12-30] MEDS ORDERED: Levofloxacin 750mg IV 750 MG/150 ML BAG IV ONE (14:33)
--- NOTE | 2017-12-30 14:48 | P.CNS ---
Date of Consult: 12/30/17 Reason for Consult: Evaluation for Admission Requesting Physician: Vijay Benavides Primary Care Provider: Dr. Black Chief Complaint: Infection to the left ankle worse History of Present Illness: 57-year-old male presented emergency room with worsening infection to the left ankle region. Patient was recently hospitalized on 12/09-. At the time he was evaluated by infectious disease and orthopedics. Patient found to have a Charcot joint with small ulcer to the lateral aspect. Cellulitis was suspected. At that time, Orthopedics aspirated a fluid collection in the area. Blood was noted during the aspiration. This was likely reactive related to bony destruction. Osteomyelitis was not suspected. X-rays and MRI did not indicate this. He improved and eventually discharged home. He was placed on Cipro and clindamycin. He was to follow up with orthopedics and infectious disease. He followed up with Orthopedics who referred him to a Orthopedic subspecialist at [facility], Dr. Franklyn Metcalf. The Subspecialist recommended surgery but the patient did not have the funds to do it at the time. Since then he has been taking care of it at home. He was to go to wound care to continue aggressive treatment but did not. On Thursday he noted a hole from the small ulcer. It was on the lateral aspect of the ankle. The hole has since increased in size with worsening erythema and swelling. He now has exudate coming from the hole. He decided to go to the ER for further evaluation. In the ER, White count 10.1, hemoglobin 11.5. Pro calcitonin 0.37. Sed rate was greater than 140. X-ray shows lateral malleolus osteomyelitis. Chronic dislocation of the ankle and hindfoot noted. Neurogenic ankle noted. I was asked by the ER to evaluate the patient for possible admission or transfer. After evaluating the wound, I discussed the case with his orthopedic surgeon. Orthopedics is only able to offer amputation which the patient does not desire. Patient wants to salvage his foot realizing that he has osteomyelitis. He prefers to go to the Subspecialist at [facility] for evaluation and treatment. ER physician will try to transfer the patient to a higher level of care center to further evaluate, address and treat. Allergies banana Allergy (Verified 12/09/17 14:05) Unknown Home medications list reviewed: Yes Home Medications: Amlodipine [Norvasc*] 5 mg PO DAILY #30 tab 12/11/17 Carvedilol [Coreg*] 3.125 mg PO BID 6AM 6PM #60 tab 12/11/17 Ciprofloxacin HCl [Cipro 500 MG Tablet] 500 mg PO BID #84 tab 12/11/17 Clindamycin HCl 300 mg PO BID #84 capsule 12/11/17 Glipizide [Glucotrol] 5 mg PO BIDWM #60 tablet 12/11/17 Lactobacillus Acidophilus [Acidophilus Lactobacilli] 1 each PO TID #90 capsule 12/11/17 Metformin HCl 1,000 mg PO BIDWM #60 tablet 12/11/17 traMADol HCL [Ultram*] 50 mg PO TID PRN #20 tab 12/11/17 - Past Medical/Surgical History Diabetic: Yes -: DM Type 2 -: HTN -: Obesity -: History of partial right thumb amputation, secondary to MRSA -: Former tobacco use -: Alcohol use -: Left Charcot arthropathy -: Partial thumb amputation -: Right knee replacement Psychosocial/ Personal History: He is single. No children. 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 - Family History Father Medical History: Heart disease, Hypertension - Social History Smoking Status: Former smoker Alcohol use: Yes CD- Drugs: No Caffeine use: Yes Place of Residence: Home Review of Systems General: Fever, Weakness, Unremarkable Eyes: Unremarkable ENT: Unremarkable Respiratory: Unremarkable Cardiovascular: Unremarkable Gastrointestinal: Unremarkable Musculoskeletal: Foot Pain, Pedal edema, As per HPI Integumentary: As per HPI Neurological: Unremarkable Lymphatics: Unremarkable Physical Examination General: Alert, In no apparent distress, Oriented x3, Cooperative HEENT: Atraumatic, Normocephalic, PERRLA Neck: Supple, No Thyromegaly Respiratory: Clear to auscultation bilaterally, Normal air movement Cardiovascular: Normal pulses, Regular rate/rhythm Gastrointestinal: Normal bowel sounds, Soft and benign, Non-distended, No tenderness, No masses, No rebound, No guarding Integumentary: Other (Significant edema to the left foot. A large hole measuring about an inch in diameter is noted to the left lateral ankle region. Exudate is noted. A large area of erythema also noted around the ulcer. Bone is exposed.) Neurological: Normal speech, Normal strength at 5/5 x4 extr, Normal tone, Normal affect Laboratory Data (last 24 hrs) 12/30/17 13:25: PT 16.2 H, INR 1.37, APTT 26.5 12/30/17 13:25: Sodium 134 L, Potassium 4.2, BUN 18, Creatinine 0.90, Glucose 157 H 12/30/17 13:25: WBC 10.1, Hgb 11.5 L, Hct 32.9 L, Plt Count 235 - Problems (1) Osteomyelitis Current Visit: Yes Status: Acute Qualifiers: Osteomyelitis location: foot Laterality: left (2) Cellulitis Onset Date: 12/10/17 Current Visit: No Status: Acute Qualifiers: Site of cellulitis: extremity Laterality: left (3) Charcot foot due to diabetes mellitus Onset Date: 12/10/17 Current Visit: No Status: Chronic (4) DM foot ulcer Onset Date: 12/10/17 Current Visit: No Status: Acute Qualifiers: Diabetes mellitus type: type 2 Laterality: left Non-pressure ulcer stage : with bone involvement without evidence of necrosis (5) Multiple dislocations Onset Date: 12/10/17 Current Visit: No Status: Chronic (6) Diabetes mellitus Onset Date: 12/10/17 Current Visit: No Status: Chronic Qualifiers: Diabetes mellitus type: type 2 Diabetes mellitus terminal manager insulin use: without terminal manager use Diabetes mellitus complication status: with other specified complication Qualified Code(s): E11.69 - Type 2 diabetes mellitus with other specified complication (7) HTN (hypertension) Onset Date: 12/10/17 Current Visit: No Status: Chronic Qualifiers: Hypertension type: essential hypertension Qualified Code(s): I10 - Essential (primary) hypertension (8) Obesity Onset Date: 12/10/17 Current Visit: No Status: Chronic Qualifiers: Obesity type: due to excess calories Obesity classification: adult class 2 (BMI 35 - 39.9) Serious obesity comorbidity presence: with serious comorbidity Body mass index: BMI 36.0-36.9 Qualified Code(s): E66.01 - Morbid (severe) obesity due to excess calories; Z68.36 - Body mass index (BMI) 36.0-36.9, adult Conclusions/Impression: Case discussed with orthopedics. Orthopedics only able to offer amputation. Patient wishes treatment instead of amputation. Patient has seen subspecialist at [facility]. After long discussion with both the patient and orthopedics , patient prefers to transfer the patient to a higher level of care center specifically to the subspecialist that has seen him already for the Charcot arthropathy. Patient now has osteomyelitis with large open diabetic foot ulcer to the lateral aspect of the ankle. Chronic dislocations noted. Patient with diabetes, hypertension. ER to transfer patient for further evaluation, treatment and care. Patient will need chronic long-term IV antibiotic therapy. Will recommend vancomycin and Zosyn. Time Spent Managing Pts care (In Minutes): 55
[2017-12-30] MEDS ORDERED: IBUPROFEN 400 MG TAB ONE (18:08)
--- NOTE | 2017-12-30 18:09 | EDPHYS ---
Physician Documentation [facility] Name: Vitaliy Cross Age: 57 yrs Sex: Male : 1960 Arrival Date: 12/30/2017 Time: 12:31 Bed 25 Private MD: Parth Black H ED Physician Vijay Benavides HPI: 12/30 13:12 This 57 yrs old Male presents to ER via Ambulatory with complaints of rn Vomiting, Fever. 13:12 The patient presents with cellulitis of the left leg. Description: draining, rn erythematous, swollen. Onset: The symptoms/episode began/occurred 3 week(s) ago. Severity of symptoms: At their worst the symptoms were moderate, in the emergency department the symptoms are unchanged. The patient has experienced a previous episode. Reports seen here a few weeks ago, given IV abx, sent to [facility] for charcot foot, no surgery performed, told him to get funding and then return, returns here for worsening wound, now ulceration has gotten worse, + drainage of fluid, + swelling.. Historical: - Allergies: 12:44 Banana; hj - Home Meds: 12:44 Glipizide Oral [Active]; indomethacin 50 mg Oral cap 1 cap 2 times per day [Active]; hj Metformin Oral 2 times per day [Active]; carvedilol 12.5 mg oral tab 1 tab 2 times per day [Active]; amlodipine 5 mg tab 1 tab once daily [Active]; - PMHx: 12:44 Diabetes - NIDDM; Hypertension; hj - PSHx: 12:44 Knee surgery; hand surg; hj - Immunization history:: Adult Immunizations up to date. - Social history:: Smoking status: Patient/guardian denies using tobacco, Patient uses alcohol. - Ebola Screening: : Patient negative for fever greater than or equal to 101.5 degrees Fahrenheit, and additional compatible Ebola Virus Disease symptoms Patient denies exposure to infectious person Patient denies travel to an Ebola-affected area in the 21 days before illness onset. - Family history:: not pertinent. - Hospitalizations: : The patient was recently seen at [facility], Patient was recently seen at. ROS: 13:12 Constitutional: Negative for fever, chills, and weight loss, Eyes: Negative for injury, rn pain, redness, and discharge, Neck: Negative for injury, pain, and swelling, Cardiovascular: Negative for chest pain, palpitations, and edema, Respiratory: Negative for shortness of breath, cough, wheezing, and pleuritic chest pain, Abdomen/GI: Negative for abdominal pain, nausea, vomiting, diarrhea, and constipation, MS/Extremity: + wound to left ankle Skin: + ulcer and drainage of wound Neuro: Negative for headache, weakness, and seizure. Exam: 13:12 Constitutional: This is a well developed, well nourished patient who is awake, alert, rn and in no acute distress. Head/Face: Normocephalic, atraumatic. Eyes: Pupils equal round and reactive to light, extra-ocular motions intact. Lids and lashes normal. Conjunctiva and sclera are non-icteric and not injected. Cornea within normal limits. Periorbital areas with no swelling, redness, or edema. Cardiovascular: Regular rate and rhythm with a normal S1 and S2. No gallops, murmurs, or rubs. Normal PMI, no JVD. No pulse deficits. Respiratory: Lungs have equal breath sounds bilaterally, clear to auscultation and percussion. No rales, rhonchi or wheezes noted. No increased work of breathing, no retractions or nasal flaring. Abdomen/GI: Soft, non-tender, with normal bowel sounds. No distension or tympany. No guarding or rebound. No evidence of tenderness throughout. MS/ Extremity: Diminished pulses bilaterally, + 6cm diameter shallow ulcer left ankle/proximal foot with central deep ulceration with serosanguinous drainage, + foul smell, no crepitus, + 2+ pitting edema of distal left leg. Neuro: Awake and alert, GCS 15, oriented to person, place, time, and situation. Cranial nerves II-XII grossly intact. Motor strength 5/5 in all extremities. Vital Signs: 12:46 BP 107 / 65; Pulse 85; Resp 18; Temp 98.8(O); Pulse Ox 98% on R/A; Weight 104.33 kg; hj Height 5 ft. 7 in. (170.18 cm); Pain 10/10; 14:39 BP 118 / 62; Pulse 82; Resp 18; Pulse Ox 95% on R/A; tl3 15:05 BP 99 / 53 RA (auto/lg); Pulse 79 RA; Pulse Ox 98% on R/A; jp3 15:23 BP 109 / 60; Pulse 79; Resp 18; Pulse Ox 98% ; tl3 16:48 BP 120 / 63; Pulse 81; Resp 18; Pulse Ox 98% ; tl3 17:38 BP 120 / 63; Pulse 88; Resp 18; Pulse Ox 99% on R/A; tl3 18:01 Temp 101.4(A); ss 18:09 BP 111 / 58; Pulse 85; Pulse Ox 97% on R/A; rv 12:46 Body Mass Index 36.02 (104.33 kg, 170.18 cm) hj MDM: 12:59 Patient medically screened. rn 15:53 ED course: Have called [facility] and ortho at [facility] several times, no call back, still rn waiting.. 18:06 ED course: Dr. York spoke with a Dr. Marie, who accepts patient for transfer. . rn 18:24 ED course: Dr. Marie upset that Dr. York contacted her on cell phone without rn going through proper transfer center channels, but accepts patient to ER for evaluation.. 12/30 13:09 Order name: CBC with Diff; Complete Time: 14:11 rn 12/30 13:09 Order name: Basic Metabolic Panel; Complete Time: 14:11 rn 12/30 13:09 Order name: Protime (+inr); Complete Time: 14:11 rn 12/30 13:09 Order name: Ptt, Activated; Complete Time: 14:11 rn 12/30 13:09 Order name: Procalcitonin; Complete Time: 14:27 rn 12/30 13:09 Order name: Sed Rate; Complete Time: 14:11 rn 12/30 13:09 Order name: XRAY Foot LEFT 2 View; Complete Time: 14:19 rn 12/30 13:09 Order name: XRAY Ankle LEFT 3 view; Complete Time: 14:19 rn 12/30 13:09 Order name: Blood Culture Adult (2) rn 12/30 13:09 Order name: Wound Culture rn 12/30 13:15 Order name: Ketone, Serum; Complete Time: 14:19 rn 12/30 13:09 Order name: IV Start; Complete Time: 14:29 rn 12/30 13:15 Order name: Glucose Level; Complete Time: 13:52 rn Administered Medications: 13:48 Drug: NS 0.9% 500 ml Route: IV; Rate: bolus; Site: left antecubital; Delivery: Primary tl3 tubing; 15:50 Follow up: IV Status: Completed infusion; IV Intake: 500ml tl3 14:39 Drug: Demerol 25 mg Route: IVP; Infused Over: 3 mins; Site: left antecubital; tl3 16:50 Follow up: Response: No adverse reaction tl3 14:39 Drug: LevaQUIN 750 mg Volume: 150 ml; Route: IVPB; Infused Over: 90 mins; Site: left tl3 antecubital; Delivery: Primary tubing; 16:50 Follow up: IV Status: Completed infusion; IV Intake: 150ml tl3 16:47 Drug: vancoMYCIN 1 grams Route: IVPB; Infused Over: 2 hrs; Site: left antecubital; tl3 Delivery: Primary tubing; 19:46 Follow up: IV Status: Completed infusion; IV Intake: 250ml tl3 18:07 Drug: Ibuprofen 800 mg Route: PO; rv 19:45 Follow up: Response: No adverse reaction; Temperature is decreased tl3 Point of Care Testing: Blood Glucose: 13:52 Blood Glucose: 169 mg/dL; tl3 Ranges: Critical Glucose Levels:Adult <50 mg/dl or >400 mg/dl <40 mg/dl or >180 mg/dl Disposition: 18 18:[address] [facility]. Diagnosis are Osteomyelitis, Cellulitis of left lower limb. - Reason for transfer: Higher level of care. - Accepting physician is Dr. Marie. - Condition is Stable. - Problem is an ongoing problem. - Symptoms have worsened. Signatures: Dispatcher [employer] EDNJ Vijay Benavides MD MD rn Joaquin, Henry, RN RN hj Lowrey, Tammy, RN RN tl3 Papa Trammell RN RN rv Corrections: (The following items were deleted from the chart) 13:10 13:09 Procalcitonin+C.LAB.BRZ ordered. [facility] [place] EDNJ 13:16 13:12 Constitutional: This is a well developed, well nourished patient who is awake, rn alert, and in no acute distress. Head/Face: Normocephalic, atraumatic. Eyes: Pupils equal round and reactive to light, extra-ocular motions intact. Lids and lashes normal. Conjunctiva and sclera are non-icteric and not injected. Cornea within normal limits. Periorbital areas with no swelling, redness, or edema. Cardiovascular: Regular rate and rhythm with a normal S1 and S2. No gallops, murmurs, or rubs. Normal PMI, no JVD. No pulse deficits. Respiratory: Lungs have equal breath sounds bilaterally, clear to auscultation and percussion. No rales, rhonchi or wheezes noted. No increased work of breathing, no retractions or nasal flaring. Abdomen/GI: Soft, non-tender, with normal bowel sounds. No distension or tympany. No guarding or rebound. No evidence of tenderness throughout. rn 19:45 18:08 12/30/2017 18:[address] [facility]. Diagnosis is Osteomyelitis; tl3 Cellulitis of left lower limb. Reason for transfer: Higher level of care. Accepting physician is Dr. Marie. Condition is Stable. Problem is an ongoing problem. Symptoms have worsened. rn
--- NOTE | 2017-12-30 18:09 | ER ---
Nurse's Notes [facility] Name: Vitaliy Cross Age: 57 yrs Sex: Male : 1960 Arrival Date: 12/30/2017 Time: 12:31 Bed 25 Private MD: Parth Black H Diagnosis: Osteomyelitis;Cellulitis of left lower limb Presentation: 12/30 12:41 Presenting complaint: Patient states: i was here weeks ago with L foot for infection hj and i guess its coming back and its worse now; reports fever and chills; reports nausea and vomiting; reports wound is bleeding 2 days ago and reports a hole on the side of the foot;. Transition of care: patient was not received from another setting of care. Onset of symptoms was December 30, 2017. Risk Assessment: Do you want to hurt yourself or someone else? Patient reports no desire to harm self or others. Initial Sepsis Screen: Does the patient meet any 2 criteria?. Initial Sepsis Screen: Does the patient meet any 2 criteria? HR > 90 bpm. Yes Does the patient have a suspected source of infection? Yes: Skin breakdown/wound. Care prior to arrival: None. 12:41 Method Of Arrival: Ambulatory 12:41 Acuity: LEVY 3 hj Triage Assessment: 12:45 General: Appears in no apparent distress. uncomfortable, Behavior is calm, cooperative, hj appropriate for age. Pain: Complains of pain in left foot. GI: Reports nausea, vomiting. Historical: - Allergies: 12:44 Banana; hj - Home Meds: 12:44 Glipizide Oral [Active]; indomethacin 50 mg Oral cap 1 cap 2 times per day [Active]; hj Metformin Oral 2 times per day [Active]; carvedilol 12.5 mg oral tab 1 tab 2 times per day [Active]; amlodipine 5 mg tab 1 tab once daily [Active]; - PMHx: 12:44 Diabetes - NIDDM; Hypertension; hj - PSHx: 12:44 Knee surgery; hand surg; hj - Immunization history:: Adult Immunizations up to date. - Social history:: Smoking status: Patient/guardian denies using tobacco, Patient uses alcohol. - Ebola Screening: : Patient negative for fever greater than or equal to 101.5 degrees Fahrenheit, and additional compatible Ebola Virus Disease symptoms Patient denies exposure to infectious person Patient denies travel to an Ebola-affected area in the 21 days before illness onset. - Family history:: not pertinent. - Hospitalizations: : The patient was recently seen at [facility], Patient was recently seen at. Screenin:45 Abuse screen: Denies threats or abuse. Denies injuries from another. Nutritional hj screening: No deficits noted. Tuberculosis screening: No symptoms or risk factors identified. Fall Risk Fall in past 12 months (25 points). Assessment: 12:45 GI: Abdomen is non-distended. hj 13:35 General: Appears uncomfortable, well groomed, well developed, well nourished, Behavior tl3 is calm, cooperative, appropriate for age. Pain: Complains of pain in left foot Is continuous, Alleviated by rest, Aggravated by increased activity, weight bearing. Neuro: Level of Consciousness is awake, alert, obeys commands, Oriented to person, place, time, situation, Appropriate for age. Cardiovascular: No deficits noted. Patient's skin is warm and dry. Respiratory: Airway is patent Respiratory effort is even, unlabored, Respiratory pattern is regular, symmetrical. : No signs and/or symptoms were reported regarding the genitourinary system. EENT: No signs and/or symptoms were reported regarding the EENT system. Derm: Decubitus located on left foot. Musculoskeletal: Capillary refill is > 3 seconds, Swelling present in left foot. 14:39 Reassessment: Patient appears in no apparent distress at this time. No changes from tl3 previously documented assessment. Patient and/or family updated on plan of care and expected duration. Pain level reassessed. Patient is alert, oriented x 3, equal unlabored respirations, skin warm/dry/pink. pt resting, Dr Benavides at bedside discussing POC. 15:23 Reassessment: Patient appears in no apparent distress at this time. Patient and/or tl3 family updated on plan of care and expected duration. Pain level reassessed. Patient is alert, oriented x 3, equal unlabored respirations, skin warm/dry/pink. pt complains of headache. 16:48 Reassessment: Patient appears in no apparent distress at this time. No changes from tl3 previously documented assessment. Patient and/or family updated on plan of care and expected duration. Pain level reassessed. Patient is alert, oriented x 3, equal unlabored respirations, skin warm/dry/pink. pt requests something to eat, tray ordered. 17:38 Reassessment: Patient appears in no apparent distress at this time. No changes from tl3 previously documented assessment. Patient and/or family updated on plan of care and expected duration. Pain level reassessed. Patient is alert, oriented x 3, equal unlabored respirations, skin warm/dry/pink. pt offered light snack of peanut butter and crackers, still awaiting transfer authorization. Vital Signs: 12:46 BP 107 / 65; Pulse 85; Resp 18; Temp 98.8(O); Pulse Ox 98% on R/A; Weight 104.33 kg; hj Height 5 ft. 7 in. (170.18 cm); Pain 10/10; 14:39 BP 118 / 62; Pulse 82; Resp 18; Pulse Ox 95% on R/A; tl3 15:05 BP 99 / 53 RA (auto/lg); Pulse 79 RA; Pulse Ox 98% on R/A; jp3 15:23 BP 109 / 60; Pulse 79; Resp 18; Pulse Ox 98% ; tl3 16:48 BP 120 / 63; Pulse 81; Resp 18; Pulse Ox 98% ; tl3 17:38 BP 120 / 63; Pulse 88; Resp 18; Pulse Ox 99% on R/A; tl3 18:01 Temp 101.4(A); ss 18:09 BP 111 / 58; Pulse 85; Pulse Ox 97% on R/A; rv 12:46 Body Mass Index 36.02 (104.33 kg, 170.18 cm) hj ED Course: 12:31 Patient arrived in ED. mr 12:32 Parth Black DO is Private Physician. mr 12:43 Triage completed. hj 12:45 Arm band placed on left wrist. hj 12:45 Patient has correct armband on for positive identification. Placed in gown. Bed in low hj position. Call light in reach. Side rails up X 1. 12:59 Vijay Benavides MD is Attending Physician. rn 13:15 Sheron Regan, MELVIN is Primary Nurse. tl3 13:25 Initial lab(s) drawn, by ct, sent to lab. First set of blood cultures drawn right A/C. jp3 First set of blood cultures drawn left A/C Second set of blood cultures drawn right Forearm Wound culture swab sent to lab. Inserted saline lock: 20 gauge forearm, using aseptic technique. Blood collected. Inserted saline lock: 20 gauge in left forearm, using aseptic technique. Blood collected. 13:35 X-ray(s) taken. tl3 13:42 X-ray completed. Portable x-ray completed in exam room. Patient tolerated procedure jb2 well. 13:44 XRAY Foot LEFT 2 View In Process Unspecified. EDMS 13:44 XRAY Ankle LEFT 3 view In Process Unspecified. EDMS 16:48 No provider procedures requiring assistance completed. tl3 18:44 Patient transferred, IV remains in place. tl3 Administered Medications: 13:48 Drug: NS 0.9% 500 ml Route: IV; Rate: bolus; Site: left antecubital; Delivery: Primary tl3 tubing; 15:50 Follow up: IV Status: Completed infusion; IV Intake: 500ml tl3 14:39 Drug: Demerol 25 mg Route: IVP; Infused Over: 3 mins; Site: left antecubital; tl3 16:50 Follow up: Response: No adverse reaction tl3 14:39 Drug: LevaQUIN 750 mg Volume: 150 ml; Route: IVPB; Infused Over: 90 mins; Site: left tl3 antecubital; Delivery: Primary tubing; 16:50 Follow up: IV Status: Completed infusion; IV Intake: 150ml tl3 16:47 Drug: vancoMYCIN 1 grams Route: IVPB; Infused Over: 2 hrs; Site: left antecubital; tl3 Delivery: Primary tubing; 19:46 Follow up: IV Status: Completed infusion; IV Intake: 250ml tl3 18:07 Drug: Ibuprofen 800 mg Route: PO; rv 19:45 Follow up: Response: No adverse reaction; Temperature is decreased tl3 Point of Care Testing: Blood Glucose: 13:52 Blood Glucose: 169 mg/dL; tl3 Ranges: Intake: 15:50 IV: 500ml; Total: 500ml. tl3 16:50 IV: 150ml; Total: 650ml. tl3 19:46 IV: 250ml; Total: 900ml. tl3 Outcome: 18:08 ER care complete, transfer ordered by MD. goncalves 18:43 Transferred by private ambulance to [facility], Transfer form tl3 completed. 18:43 Condition: unchanged 18:43 Instructed on the need for transfer, Demonstrated understanding of instructions. 19:45 Patient left the ED. tl3 Signatures: Dispatcher [employer] EDDilma Santiago Jesse jb2 Vijay Benavides MD MD rn Smirch, Shelby, RN RN Fco Duran RN RN hj Lowrey, Tammy, RN RN tl3 Papa Trammell RN RN Ector López jp3 Corrections: (The following items were deleted from the chart) 12:47 12:46 Pulse 85bpm; Resp 18bpm; Pulse Ox 98% RA; Temp 98.8F Oral; 104.33 kg; Height 5 hj ft. 7 in.; BMI: 36.0; Pain 10/10; hj 18:02 18:01 BP 120 / 63; Pulse 89bpm; Resp 18bpm; Pulse Ox 98% RA; ss ss
[2017-12-30 20:01] VITALS: TEMP 101.4
[2017-12-30 20:02] VITALS: BP 111/58; O2SAT 97
== END 2017-12-30 19:45 | disposition short-term general hospital (02) ==
LOC: ER 12:27
DX: M86.9 Osteomyelitis, unspecified (principal); E11.69 Type 2 diabetes mellitus with other specified complication; I10 Essential (primary) hypertension; Z91.018 Allergy to other foods
CPT/HCPCS: 36415; 80048; 82010; 82962; 84145; 85025; 85610; 85652; 85730; 87040; 87070; 87205; 96361; 96365; 96366; 96375; 99285; J2175; J3370

== ENCOUNTER 2021-06-08 18:20 | Emergency (ER) | payer BC ==
--- OUTSIDE RECORDS SUMMARY | 2021-06-08 18:23 | XMS REPORT | Continuity of Care Document ---
:1960 Author Organization [facility] t Address [address] [place] [address] Care Team Providers Name Role Phone Black Primary Care Physician Yimi Huang MD Attending Clinician Yimi HUANG Attending Clinician Unavailable Payers Payer Name Policy Type Policy Number Effective Date Expiration Date S ource Problems Condition Condition Condition Status Onset Resolution Last Treating Co mments Source Name Details Category Date Date Treatment Clinician Date MRSA MRSA Disease Active 2020-06 Univers bacteremia bacteremia 18 it y of 00:00: [place] 00 Medical Branch 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 U [place] A1C A1C 1-18 ity of greater greater 00:00: [place] than 9%, than 9%, 00 Medica l indicating indicating Br anch poor poor diabetic diabetic control control 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 U nivers joint joint -18 [place], [place] initial 00 Medical encounter encounter Bran 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 U nivers ccal ccal 1-15 [place] of arthritis arthritis 00:[place] right of right 00 Medica l knee knee Branch Infection Infection Disease Active 2018-06 Uni vers at site of at site of 1-15 it y of external external 00:00: [place] fixator fixator 00 Medical pin, pin, Branch subsequent subsequent encounter encounter 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 2 ed type 2 0-21 ity of diabetes diabetes 00:00: [place] mellitus mellitus 00 Medica l with with Branch Charcot's Charcot's joint of joint of foot foot Orthopedic Orthopedic Disease Active U hien aftercare aftercare 9-27 ity of 00:00: [place] 00 Medical Branch Acquired Acquired Disease Active Unive rs varus varus 4-18 [place] of deformity deformity 00:[place] of left of left 00 Medical ankle ankle Branch S/P S/P Disease Active Univers orthopedic orthopedic 3-18 it y of surgery, surgery, 00:00: [place] follow-up follow-up 00 [facility] sami exam exam Branch Chronic Chronic Disease Active 2017-06 Univers multifocal multifocal 1-05 [place] y of osteomyeli osteomyeli [place] tis of tis of 00 Medical left foot left foot Bran ch Obesity Obesity Disease Active Univers (BMI (BMI 7-12 ity of 30-39.9) 30-39.9) 00:00: [place] 00 Medical Branch Diabetic Diabetic Disease Active Unive rs foot ulcer foot ulcer 7-11 it y of 00:00: [place] 00 Medical Branch Skin ulcer Skin ulcer Disease Active Overview : Univers of left of left 7-11 Formatt[place] ity o f ankle with ankle with 00:00: g of this [place] fat layer fat layer 00 note Medi sami exposed exposed might be Branch different from the original. Added automatic ally from request for surgery [id number] Allergies, Adverse Reactions, Alerts Allergy Allergy Status Severity Reaction(s) Onset Inactive Treating Comm ents Source Name Type Date Date Clinician No Known DA Active U 2018-06 [facility] All[facility]ie 0- [facility] s 00:00: [facility] 00 are [place] NO KNOWN Drug Active Univers ALLERGIE Class ity of S [facility] Social History Social Habit Start Date Stop Date Quantity Comments Source Exposure to Not sure [facility] SARS-CoV-2 (event) Medica l Branch Tobacco use and 2019-05-11 2019-05-11 Never used [facility] y of [place] exposure 00:00:00 00:00:00 Medical Branch [facility][birth year] [facility] [place] [facility] Medical Branch Smoking Status Start Date Stop Date Source Former smoker 2019-05-11 00:00:00 2019-05-11 00:00:00 [facility] [place] Medical Branch Medications Ordered Filled Start Stop Current Ordering Indication Dosage Frequency Signature Comments Components Source Medication Medication Date Date Medication? Clinician (SIG) Name Name carvedilol 2020-06 Yes 3.125mg Take 3.125 Univers 3.125 mg 2-15 mg by ity of tablet 08:16: mouth 2 [place] [address] (two) Medical times Branch daily with meals. vits 2020-06 Yes 1{capsu Take 1 Univers A,C,E/zinc/ 2-15 le} capsule by it y of copper 08:16: mouth 2 [place] (VISION-VIT 28 (two) Medical E PRESERVE times Branch ORAL) daily. metoprolol 2020-06 Yes 25mg Take 25 mg U nivers succinate 2-15 by mouth ity of XL 25 mg 24 08:16: [place]. [place] hr tablet 28 Medical Branch carvedilol 2020-06 Yes 3.125mg Take 3.125 Univers 3.125 mg 2-15 mg by ity of tablet 08:16: mouth 2 [place] [address] (two) Medical times Branch daily with meals. vits 2020-06 Yes 1{capsu Take 1 Univers A,C,E/zinc/ 2-15 le} capsule by it y of copper 08:16: mouth 2 [place] (VISION-VIT 28 (two) Medical E PRESERVE times Branch ORAL) daily. metoprolol 2020-06 Yes 25mg Take 25 mg U nivers succinate 2-15 by mouth ity of XL 25 mg 24 08:16: [place]. [place] hr tablet 28 Medical Branch minocycline 2020-06- Yes [id number] 100mg Take 1 Univers 100 mg 2-15 -16 [id number] capsule by ity of capsule 00:00: 04:59 mouth [place] 00 :00 every 12 Medical (twelve) Branch hours for 90 days. minocycline 2020-06- Yes [id number] 100mg Take 1 Univers 100 mg 2-15 -16 [id number] capsule by ity of capsule 00:00: 04:59 mouth [place] 00 :00 every 12 Medical (twelve) Branch hours for 90 days. magnesium 2020-06- No [id number] 400mg Take 400 Univers oxide 420 -11 06-15 9107 mg by ity of mg Tab 00:00: 00:00 mouth [place] 00 :00 daily. Medical Branch mupirocin 2 2020-06 Yes [id number] 1g Use 1 g in Univers % nasal 1-20 9107 each ity of ointment 00:00: nostril [place] every 12 Medical (twelve) Branch hours. Insulin 2020-06 Yes [id number] 20U inject 20 Univers Glargine 1-20 9107 Units ity of (LANTUS 00:00: under the [facility] 00 skin at [facility] U-100 bedtime. Branch INSULIN) 100 unit/mL (3 mL) injection mupirocin 2 2020-06 Yes [id number] 1g Use 1 g in Univers % nasal 1-20 9107 each ity of ointment 00:00: nostril [place] every 12 Medical (twelve) Branch hours. Insulin 2020-06 Yes [id number] 20U inject 20 Univers Glargine 1-20 9107 Units ity of (LANTUS 00:00: under the [facility] 00 skin at [facility] U-100 bedtime. Branch INSULIN) 100 unit/mL (3 mL) injection Diabetic Yes [id number] Use as Un cody Supplies, 1-04 directed ity of Miscellan. 00:00: [place] Kit 00 Medical Branch Diabetic Yes [id number] Use as Un cody Supplies, 1-04 directed ity of Miscellan. 00:00: [place] Kit 00 Medical Branch traMADOL 50 2018-0 Yes [id number] 50mg Take 1 Univers mg tablet 3-05 tablet by ity o f 00:00: mouth [place] 00 every 6 Medical (six) Branch hours as needed for Pain (scale 4-6) for up to 45 doses. traMADOL 50 Yes [id number] 50mg Take 1 Univers mg tablet 3-05 tablet by ity o f 00:00: mouth [place] 00 every 6 Medical (six) Branch hours as needed for Pain (scale 4-6) for up to 45 doses. HYDROcodone 2018- Yes [id number] 1{tbl} Take 1 Univers -acetaminop 1-24 tablet by ity of hen 10-325 00:00: mouth [place] mg tablet 00 every 4 Medical (four) Branch hours as needed for Pain (scale 4-6) or Pain (scale 7-10). HYDROcodone 2018-0 Yes [id number] 1{tbl} Take 1 Univers -acetaminop 1-24 tablet by ity of hen 10-325 00:00: mouth [place] mg tablet 00 every 4 Medical (four) Branch hours as needed for Pain (scale 4-6) or Pain (scale 7-10). metFORMIN 2017-06 Yes TK 1 T PO Uni vers 1,000 mg 2-04 BID ity of tablet 00:00: [address] Branch metFORMIN 2017-06 Yes TK 1 T PO Uni vers 1,000 mg 2-04 BID ity of tablet 00:00: [address] Immunizations Ordered Filled Immunization Date Status Comments Sour e Immunization Name Name Pneumococcal 2021-06-05 Completed [place] f Polysaccharide, 00:00:00 [facility] ical PPSV23 (PNEUMOVAX) Branch Pneumococcal 2021-06-05 Completed [place] f Polysaccharide, 00:00:00 [facility] ical PPSV23 (PNEUMOVAX) Branch Td 2020-06-[address] [facility] 00:00:00 [facility] Td 2020-06-[address] [facility] 00:00:00 [facility] Vital Signs Vital Name Observation Time Observation Value Comments Source Systolic blood 2021-06-05 14:15:00 159 mm[Hg] Univer sity of pressure [facility] Diastolic blood 2021-06-05 14:15:00 81 [facility] Heart rate 2021-06-05 14:15:00 96 /min [facility] Body temperature 2021-06-05 14:14:00 36.28 [facility] Respiratory rate 2021-06-05 14:14:00 16 /min [facility] Body height 2021-06-05 14:14:00 170.2 cm [facility] Body weight 2021-06-05 14:14:00 101.424 kg [facility] BMI 2021-06-05 14:14:00 35.02 kg/m2 [facility] Procedures Procedure Date / Time Performing Clinician Source Performed PNEUMOCOCCAL VACCINE, 2021-06-05 14:51:07 Dottie Huang [facility] 23-VALENT (PNEUMOVAX) Medical Br anch Encounters Start End Encounter Admission Attending Care Care Encounter Source Date/Time Date/Time Type Type Clinicians Facility Department ID 2021-06-05 2021-06-05 Office SANTI Huang [id number] Univers 08:00:00 09:00:00 Visit [facility] [id number] ity of CLINICS 4.2.7.2.686 [place] [id number] [address] 2021-06-05 2021-06-05 Outpatient R DENIS, [facility] [id number] Univers 08:00:00 08:00:00 [facility] [place] [facility] 2021-06-05 2021-06-05 Telephone SANTI Huang [id number] [facility] 00:00:00 00:00:00 [facility] [id number] ity of CLINICS 4.2.7.2.686 [place] [id number] [address] Results Test Description Test Time Test Comments Results Result Comments Source SED RATE 2019-03-23 09:14:00 Test Item Value Reference Range Interpretation Comme nts SED RATE (test code = SEDW) 84 mm/hr 0-20 H LIPID PROFILE (CORONARY RISK)2019-03-23 07:29:00 Test Item Value Reference Range Interpretation Comments TRIGLYCERIDES (test code = TRIG) 135 mg/dL 0-149 N CHOLESTEROL (test code = CHOL) 225 mg/dL 0-200 H CHOLESTEROL/HDL RATIO (test code = 5 1-6 N CHOLHDL) HDL CHOLESTEROL (test code = HDL) 41 mg/dL 40-60 N LIPOPROTEIN LDL (test code = LDLC) 148 mg/dL 0-100 H [id number] 07:29:00 Test Item Value Reference Range Interpretation Comments VANCOMYCIN (test code = VANCO) 12.1 ug/mL 5.0-40.0 N C REACTIVE [id number] 07:29:00 Test Item Value Reference Range Interpretation Comments C REACTIVE PROTEIN (test code = 13.20 mg/dL 0.00-0.33 H CRP) - XR TIBIA/FIBULA 2 V [id number] 22:38:00Patient Name: ANITA SHORT Unit No: [id number] EXAMS: CPT CODE: [id number] XR TIBIA/FIBULA 2 [place] [address] Location code: A 1 Left tibia and fibula 2 views: Indication: Hardware evaluation Comparison: none Findings Complex external fixation device from calf to the hindfoot. Transverse pins in the foot and calf. Skin avani along the medial and lateral aspects of the distal calf and ankle. E rosive destruction of the ankle joint and hindfoot, with amorphous soft tissue calcification and sclerosis in the remaining bone. Fixation pins extend from the calcaneus into the tibia. Skin avani along the medial and lateral aspects of the distal calf and ankle. Large soft tissue swelling about the ankle. IMPRESSION: External fixation device in the calf and hindfoot. Postsurgical changes in the hindfoot for ankle and hindfoot fusion. at 2238 Reported and signed by: Romie Flores MD CC: Tiff(ED) Jose C Technologist: Luciana Munson Time: DAP (Gy m2): Air Kerma (mGy): Trscr Dt/Tm: 03/22/2019 (2237) by:[email or web address] Electronic Signature Date/Time: 03/22/2019 (2237)Orig Print D/T: S: 03/22/2019 (224) [facility] Tiff Bonds [address] : 1960 Age: 59 Sex: M [place] [id number] No: [id number] Loc: [place].ERS Exam Date: 03/22/2019 Status: PRE ER PH: FAX: PAGE 1 Signed Report- XR ANKLE 2 VIEWS [id number] 22:35:00Patient Name: ANITA SHORT Unit No: [id number] EXAMS: CPT CODE: [id number] XR [place] [address] [place] [address] Location code: A 1 Left ankle 2 views: Indication: Hardware evaluation Comparison: none Findings External fixation device at the level the ankle and mid calf, with transverse rods in the mid tibia and fibulaand foot. Destruction of the ankle and subtalar joints, with amorphous bone formation in the adjacent soft tissues. Deformity and sclerosis of the posterior calcaneus and mid tarsus. Skin avani at the medial and lateral aspects of the distal calf and ankle, with large soft tissue swelling. IMPRESSION: Postoperative changes of the ankle joint and foot. External fixation. at 2235 Reported and signed by: Romie Flores MD CC: Tiff(CASTRO) Jose C Technologist: Luciana Munson Time: DAP (Gy m2): Air Kerma (mGy): Trscr Dt/Tm: 03/22/2019 (2234) by:[email or web address] Electronic Signature Date/Time: 03/22/2019 (2234)Orig Print D/T: S: 03/22/2019 (2238) Name: [facility] Phys: Tiff Bonds [address] : 1960 Age: 59 Sex: M [id number] Loc: [place].ERS Exam Date: 03/22/2019 Status: PRE ER PH: FAX: PAGE 1 Signed ReportBASI METABOLIC [id number] 21:29:00 Test Item Value Reference Range Interpretation Comments SODIUM (test code 132 mmol/L 135-145 L = NA) POTASSIUM (test 4.5 mmol/L 3.5-5.1 N code = K) CHLORIDE (test 101 mmol/L 98-107 N code = CL) CARBON DIOXIDE 26 mmol/L 21-32 N (test code = CO2) ANION GAP (test 9.5 2.0-16.0 N code = GAP) GLUCOSE (test code 293 mg/dL 65-99 H = GLU) BLOOD UREA 20 mg/dL 4-23 N NITROGEN (test code = BUN) GLOMERULAR >=60 max 60-115 N The estimated FILTRATION RATE estimate ml/min glomerula r (test code = GFR) filtration rate is computed usingpatient ra ce, age (>18), sex, and serum creatinin e. If anyof the neede d data elements a re missing the Laboratory palomo ot compute an estimation of t he glomerular filtration rate . CREATININE (test 0.9 mg/dL 0.6-1.5 N code = CREAT) BUN/CREATININE 22.2 12.0-20.0 H RATIO (test code = BUN/CREA) CALCIUM (test code 9.0 mg/dL 8.5-10.1 N = CA) LIVER FUNCTION [id number] 21:29:00 Test Item Value Reference Range Interpretation Comments TOTAL PROTEIN (test code = PROT) 7.6 g/dL 6.4-8.2 N ALBUMIN (test code = ALB) 3.2 g/dL 3.4-5.0 L GLOBULIN (test code = GLOB) 4.4 g/dL 2.3-3.5 H BILIRUBIN TOTAL (test code = 0.4 mg/dL 0.2-1.2 N BILT) BILIRUBIN DIRECT (test code = < 0.1 mg/dL 0.0-0.3 N BILD) BILIRUBIN INDIRECT (test code = 0.3 mg/dL 0.0-0.8 N BILIND) SGOT/AST (test code = AST) 15 U/L 15-37 N SGPT/ALT (test code = ALT) 29 U/L 6-50 N ALKALINE PHOSPHATASE (test code = 137 U/L 45-117 H ALKP) - XR CHEST 2 [id number] 21:25:00Patient Name: AINTA SHORT Unit No: [id number] EXAMS: CPT CODE: [id number] XR CHEST 2 V 31250 Dictation location: [facility]. CHEST, FRONTAL AND LATERAL VIEWS HISTORY: Fever COMPARISON: None. FINDINGS: The lungs are clear without consolidation. No pleural effusion or pneumothorax. The heart size is normal. The aorta is partially calcified. Multiple healed right rib fractures. Mild degenerative changes affect the thoracic spine. IMPRESSION: No evidence of acute cardiopulmonary disease. at 2124 Reported and signed by: David Ross MD CC: Jose Luis Louie MD Technologist: Stephen Munson Time: DAP (Gy m2): Air Kerma (mGy):Trscr Dt/Tm: 03/22/2019 (2124) by:[email or web address] Electronic Signature Date/Time:03/22/2019 (2124)Orig Print D/T: S: 03/22/2019 (2127) Name: ANITA SHORT [facility] [place] Phys: [place] [address] : 1960 Age: 59 [place]: [place] [id number] Loc: [place].ERS Exam Date: 03/22/2019 Status:PRE ER PH: FAX: PAGE 1 Signed ReportCBC W/AUTO [id number] 20:56:00 Test Item Value Reference Range Interpretation Comments WHITE BLOOD CELL (test code = 7.9 10 3/uL 4.5-11.0 N WBC) RED BLOOD CELL (test code = 3.69 10 6/uL 4.30-5.50 L RBC) HEMOGLOBIN (test code = HGB) 10.6 g/dL 14.0-18.0 L HEMATOCRIT (test code = HCT) 32.2 % 40.0-55.0 L MEAN CELL VOLUME (test code = 87 fL 81-102 N MCV) MEAN CELL HGB (test code = 28.7 pg 26.0-34.0 N MCH) MEAN CELL HGB CONCENTRATION 32.9 % 31.0-37.0 N (test code = MCHC) RED CELL DISTRIBUTION WIDTH 13.7 % 11.5-14.5 N (test code = RDW) PLATELET COUNT (test code = 190 10 3/uL 150-400 N PLT) MEAN PLATELET VOLUME (test 10.8 fl 9.0-12.6 N code = MPV) NEUTROPHIL % (test code = NT%) 81.0 % 33.0-76.0 H IMMATURE GRANULOCYTE % (test 0.6 % 0.0-1.0 N code = IG%) LYMPHOCYTE % (test code = LY%) 11.1 % 14.0-56.4 L MONOCYTE % (test code = MO%) 6.2 % 0.0-12.9 N EOSINOPHIL % (test code = EO%) 0.8 % 0.0-7.0 N BASOPHIL % (test code = BA%) 0.3 % 0-2.0 N NEUTROPHIL # (test code = NT#) 6.37 10 3/uL 1.5-7.0 N IMMATURE GRANULOCYTE # (test 0.050 x10 3/uL 0.000-0.100 N code = IG#) LYMPHOCYTE # (test code = LY#) 0.87 10 3/uL 1.50-4.00 L MONOCYTE # (test code = MO#) 0.49 10 3/uL 0.20-0.80 N EOSINOPHIL # (test code = EO#) 0.06 10 3/uL 0.0-0.5 N BASOPHIL # (test code = BA#) 0.02 10 3/uL 0.0-0.1 N
--- NOTE | 2021-06-08 19:11 | RAD REPORT ---
EXAM DESCRIPTION: CT - Head Brain Wo Cont - 06/08/2021 7:04 pm CLINICAL HISTORY: AMS Headache, drowsiness COMPARISON: Foot Left 2 View dated 12/30/2017 TECHNIQUE: All CT scans are performed using dose optimization technique as appropriate and may inclu de automated exposure control or mA/KV adjustment according to patient size. FINDINGS: No intracranial hemorrhage, hydrocephalus or extra-axial fluid collection.No areas of brai n edema or evidence of midline shift. The paranasal sinuses are clear. Mild bilateral mastoid effusions. The calvarium is intact. IMPRESSION: No acute intracranial abnormality. Mild bilateral mastoid effusions.
[2021-06-08 19:40] LABS: Absolute Lymphocytes (CBC) 1.1 K/uL (0.7-4.9); Basophils % 0.4 % (0-1.3); Hematocrit 26.4 % (39.6-49.0); Lymphocytes % 10.8 % (15.3-44.8); MPV 7.8 fL (7.6-11.3); RBC Red Blood Cell Count 3.23 M/uL (4.33-5.43)
[2021-06-08 19:44] LABS: Protime INR 1.1
[2021-06-08 20:02] LABS: Urine Blood Trace-lysed (Negative); Urine Glucose Negative (Negative); Urine Protein 2+ (Negative); Urine Specific Gravity 1.025 (1.005-1.030); Urine pH 5.5 (5.0-7.0)
[2021-06-08 20:12] LABS: Urine Bacteria 20-50 /HPF (NONE SEEN)
[2021-06-08 20:18] LABS: Barbiturates NEGATIVE (NEGATIVE); Benzodiazepines NEGATIVE (NEGATIVE); Cocaine NEGATIVE (NEGATIVE); METHAMPHETAM POSITIVE (NEGATIVE); Methadone NEGATIVE (NEGATIVE); Opiates POSITIVE (NEGATIVE); Phencyclidine NEGATIVE (NEGATIVE); THC Cannibis NEGATIVE (NEGATIVE)
[2021-06-08 20:18] LABS: ALT/SGPT 19 U/L (12-78); AST/SGOT 13 U/L (15-37); Alkaline Phosphatase 156 U/L (45-117); BUN Blood Urea Nitrogen 32 mg/dL (7-18); Bicarbonate 24 mmol/L (21-32); Bilirubin Direct 0.1 mg/dL (0-0.2); Bilirubin Total 0.3 mg/dL (0.2-1.0); Glucose Level 136 mg/dL (74-106); Potassium 3.9 mmol/L (3.5-5.1); Protein, Total 7.1 g/dL (6.4-8.2); Sodium Level 138 mmol/L (136-145); Troponin (Emerg Dept Use Only) < 0.02 ng/mL (0.0-0.045)
--- NOTE | 2021-06-08 20:23 | RAD REPORT ---
EXAM DESCRIPTION: RAD - Chest Single View - 06/08/2021 7:13 pm CLINICAL HISTORY: AMS Chest pain. COMPARISON: No comparisons FINDINGS: Portable technique limits examination quality. Mild interstitial pulmonary edema seen. The heart is moderately enlarged in size. No displaced fractu res. IMPRESSION: Mild CHF.
[2021-06-08] MEDS ORDERED: CEFTRIAXONE 1000 MG/VIAL ONE (20:32)
[2021-06-08] MEDS ORDERED: NA CHLORIDE 0.9% 50 ML ONE (20:32)
--- NOTE | 2021-06-08 22:00 | ER ---
Nurse's Notes [facility] Name: Vitaliy Cross Age: 61 yrs Sex: Male : 1960 Arrival Date: 06/08/2021 Time: 18:21 Bed 3 Private MD: Diagnosis: UTI/ Urinary tract infection, site not specified;Other stimulant abuse-methamphetamine abuse;Opioid abuse Presentation: 06/08 18:22 Chief complaint: EMS states: Toned out by [employer] employees reporting pt is a regular jl7 and noticed he is not acting right, pt confused, able to verbally respond but not making much sense. BP 179/96, HR 124, BGL 101. Coronavirus screen: At this time, the client does not indicate any symptoms associated with coronavirus-19. Ebola Screen: No symptoms or risks identified at this time. Initial Sepsis Screen: Does the patient meet any 2 criteria? No. Patient's initial sepsis screen is negative. Does the patient have a suspected source of infection? No. Patient's initial sepsis screen is negative. Risk Assessment: Do you want to hurt yourself or someone else? Patient reports no desire to harm self or others. Onset of symptoms is unknown. Care prior to arrival: Glucose check: 101. 18:22 Method Of Arrival: EMS: [facility] jl7 18:22 Acuity: LEVY 3 jl7 Triage Assessment: 18:32 General: Appears in no apparent distress. uncomfortable, Behavior is calm, cooperative. jl7 Pain: Denies pain. Neuro: Level of Consciousness is awake, alert, obeys commands, Oriented to person, place, Residential Installer are equal bilaterally Moves all extremities. Full function Speech is normal, with expressive aphasia noted, Facial symmetry appears normal. Cardiovascular: Patient's skin is warm and dry. Rhythm is sinus rhythm with 1st degree heart block Chest pain is denied. Respiratory: Airway is patent Respiratory effort is even, unlabored, Respiratory pattern is regular, symmetrical, Denies shortness of breath. Derm: Skin is pink, warm \T\ dry. Historical: - Allergies: 18:32 Banana; jl7 - PMHx: 18:32 Diabetes - NIDDM; Hypertension; jl7 - PSHx: 18:32 Unable to Obtain; jl7 - Immunization history:: Adult Immunizations unknown, Client reports having NOT received the Covid vaccine. - Social history:: Smoking status: Patient denies any tobacco usage or history of. Patient/guardian denies using alcohol, street drugs, tobacco products. Screenin:35 Abuse screen: Denies threats or abuse. Denies injuries from another. Nutritional jl7 screening: No deficits noted. Tuberculosis screening: No symptoms or risk factors identified. VAN Screening: Arm Drift: Patient shows no arm weakness. Patient is VAN negative. The patient has not been NPO before screening. The patient is currently on the following diet: Regular The patient is alert, able to follow commands. The patient does not exhibit slurred or garbled speech The patient is not exhibiting difficulty speaking. The patient does not exhibit difficulty understanding words. The patient is able to swallow own secretions with no drooling or need for suction. Patient tolerated one teaspoon of water. No drooling, immediate coughing, gurgling, or clearing of the throat was noted. The patient tolerated 90mL of water. No drooling, immediate coughing, gurgling, or clearing of the throat was noted. The patient passed the bedside swallow screening. Oral medications may be given as ordered. Contact Physician for further diet orders. Provider notified of bedside swallow screening results: Vijay Benavides MD. Fall Risk None identified. Assessment: 18:35 General: See triage. jl7 19:34 Reassessment: Patient and/or family updated on plan of care and expected duration. Pain as6 level reassessed. 20:42 Reassessment: Patient is alert, oriented x 3, equal unlabored respirations, skin lp1 warm/dry/pink. Patient states feeling better. 22:04 Reassessment: Patient appears in no apparent distress at this time. Patient is alert, lp1 oriented x 3, equal unlabored respirations, skin warm/dry/pink. Patient states symptoms have improved. 22:48 Reassessment: Patient discharged to PD officer to return to vehicle and belongings. lp1 Vital Signs: 18:22 BP 177 / 100; Pulse 101; Resp 16; Temp 98.2; Pulse Ox 96% ; Weight 83.91 kg; Height 5 jl7 ft. 8 in. (172.72 cm); Pain 0/10; 19:33 BP 164 / 95; Pulse 99; Resp 20 S; Pulse Ox 100% on R/A; as6 20:42 BP 163 / 96; Pulse 94; Resp 22; Pulse Ox 98% on R/A; lp1 22:03 BP 163 / 96; Pulse 93; Resp 20; Pulse Ox 96% on R/A; lp1 18:22 Body Mass Index 28.13 (83.91 kg, 172.72 cm) jl7 ED Course: 18:21 Patient arrived in ED. jl7 18:32 Triage completed. jl7 18:32 Arm band placed on right wrist. jl7 18:35 Patient has correct armband on for positive identification. Placed in gown. Bed in low jl7 position. Call light in reach. Side rails up X2. school bus monitor on. Pulse ox on. NIBP on. 18:35 EKG done, by ED staff, reviewed by Vijay Benavides MD. jl7 18:36 Fabio Clayton NP is PHCP. pm1 18:36 Vijay Benavides MD is Attending Physician. pm1 19:00 Bartolome Coombs RN is Primary Nurse. as6 19:04 CT Head Brain wo Cont In Process Unspecified. EDMS 19:13 Chest Single View XRAY In Process Unspecified. EDMS 21:14 Inserted saline lock: 18 gauge in right antecubital area, using aseptic technique. as6 Blood collected. 22:04 No provider procedures requiring assistance completed. lp1 22:14 IV discontinued, No redness/swelling at site. Pressure dressing applied. lp1 Administered Medications: 20:41 Drug: Rocephin (cefTRIAXone) 1 grams Route: IV; Rate: calculated rate; Site: right lp1 antecubital; 22:14 Follow up: IV Status: Completed infusion; IV Intake: 50ml lp1 Intake: 22:14 IV: 50ml; Total: 50ml. lp1 Outcome: 22:00 Discharge ordered by . pm1 22:14 Discharged to home lp1 22:14 Condition: good 22:14 Discharge instructions given to patient, Instructed on discharge instructions, follow up and referral plans. medication usage, Demonstrated understanding of instructions, follow-up care, medications, Prescriptions given X 1. 22:49 Patient left the ED. lp1 Signatures: Dispatcher [employer] EDMS Farrah Velasquez RN RN lp1 Fabio Clayton NP RAILWAY SWITCH OPERATOR pm1 Jackeline Harrell RN RN jl7 Slawson, Kimberly, RN RN as6 Corrections: (The following items were deleted from the chart) 19:35 19:31 CORONAVIRUS+ drawn and sent. as6 EDMS
--- NOTE | 2021-06-08 22:01 | EDPHYS ---
Physician Documentation [facility] Name: Vitaliy Cross Age: 61 yrs Sex: Male : 1960 Arrival Date: 06/08/2021 Time: 18:21 Bed 3 Private MD: ED Physician Vijay Benavides HPI: 06/08 18:45 This 61 yrs old Male presents to ER via EMS with complaints of Altered Mental Status. pm1 18:45 The patient presents with confusion. Onset: The symptoms/episode began/occurred today. pm1 Possible causes: unknown. Associated signs and symptoms: The patient has no apparent associated signs or symptoms. Current symptoms: In the emergency department the patient's symptoms are unchanged from the initial presentation. It is unknown whether or not the patient has had similar symptoms in the past. Patient arrived by EMS with complaints of altered mental status from [employer]. 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 Patient arrived to the ER without any complaints. Historical: - Allergies: 18:32 Banana; jl7 - PMHx: 18:32 Diabetes - NIDDM; Hypertension; jl7 - PSHx: 18:32 Unable to Obtain; jl7 - Immunization history:: Adult Immunizations unknown, Client reports having NOT received the Covid vaccine. - Social history:: Smoking status: Patient denies any tobacco usage or history of. Patient/guardian denies using alcohol, street drugs, tobacco products. ROS: 18:45 Constitutional: Negative for fever, chills, and weight loss. pm1 18:45 Eyes: Negative for injury, pain, redness, and discharge, ENT: Negative for injury, pain, and discharge, Cardiovascular: Negative for chest pain, palpitations, and edema, Respiratory: Negative for shortness of breath, cough, wheezing, and pleuritic chest pain, Abdomen/GI: Negative for abdominal pain, nausea, vomiting, diarrhea, and constipation, Back: Negative for injury and pain, : Negative for injury, bleeding, discharge, and swelling, MS/Extremity: Negative for injury and deformity, Skin: Negative for injury, rash, and discoloration. 18:45 Neuro: Positive for altered mental status, Negative for headache, numbness, tingling, weakness. Exam: 18:45 Constitutional: This is a well developed, well nourished patient who is awake, alert, pm1 and in no acute distress. Head/Face: Normocephalic, atraumatic. 18:45 Skin: Warm, dry with normal turgor. Normal color with no rashes, no lesions, and no evidence of cellulitis. 18:45 Eyes: Exam is negative for acute changes, Extraocular movements: no acute changes, Conjunctiva: normal, no injection. 18:45 ENT: Exam is negative for acute changes, Mouth: Lips: normal, moist, Oral mucosa: normal, pink and intact, moist. 18:45 Cardiovascular: Exam negative for acute changes, Rate: normal, Rhythm: regular, Pulses: no pulse deficits are appreciated, Heart sounds: normal, Edema: is not appreciated. 18:45 Respiratory: Exam negative for acute changes, respiratory distress, shortness of breath, Breath sounds: are clear throughout. 18:45 Abdomen/GI: Exam negative for acute changes, Inspection: abdomen appears normal, Palpation: abdomen is soft and non-tender, in all quadrants. 18:45 Musculoskeletal/extremity: Exam is negative for acute changes. 18:45 Neuro: Orientation: to person, place, time, Patient unable to recall much events prior to ambulance arrival. Mentation: Cranial nerves: CN II- XII are normal as tested, Motor: moves all fours, strength is 5/5 in all extremities, Sensation: is normal, no obvious gross deficits. Vital Signs: 18:22 BP 177 / 100; Pulse 101; Resp 16; Temp 98.2; Pulse Ox 96% ; Weight 83.91 kg; Height 5 jl7 ft. 8 in. (172.72 cm); Pain 0/10; 19:33 BP 164 / 95; Pulse 99; Resp 20 S; Pulse Ox 100% on R/A; as6 20:42 BP 163 / 96; Pulse 94; Resp 22; Pulse Ox 98% on R/A; lp1 22:03 BP 163 / 96; Pulse 93; Resp 20; Pulse Ox 96% on R/A; lp1 18:22 Body Mass Index 28.13 (83.91 kg, 172.72 cm) jl7 MDM: 18:43 Patient medically screened. pm1 21:50 Data reviewed: vital signs. Data interpreted: Pulse oximetry: on room air is 98 %. pm1 Interpretation: normal. 21:58 Counseling: I had a detailed discussion with the patient and/or guardian regarding: the pm1 historical points, exam findings, and any diagnostic results supporting the discharge/admit diagnosis, lab results, radiology results, the need for outpatient follow up, to return to the emergency department if symptoms worsen or persist or if there are any questions or concerns that arise at home. 06/08 18:31 Order name: Urine Culture rn 06/08 18:31 Order name: Urine Microscopic Only rn 06/08 18:32 Order name: Urine Culture EDMD 06/08 18:32 Order name: Urine Microscopic Only; Complete Time: 20:19 EDMD 06/08 18:45 Order name: Acetaminophen pm1 06/08 18:45 Order name: Basic Metabolic Panel pm1 06/08 18:45 Order name: CBC with Diff; Complete Time: 20:19 pm1 06/08 18:45 Order name: ETOH Level; Complete Time: 20:19 pm1 06/08 18:45 Order name: Hepatic Function; Complete Time: 20:19 pm1 06/08 18:45 Order name: PT-INR; Complete Time: 20:19 pm1 06/08 18:45 Order name: Ptt, Activated; Complete Time: 20:19 pm1 06/08 18:45 Order name: Salicylate; Complete Time: 20:19 pm1 06/08 18:45 Order name: Urine Drug Screen; Complete Time: 20:19 pm1 06/08 18:31 Order name: CT Head Brain wo Cont; Complete Time: 19:25 rn 06/08 18:31 Order name: Urine Dipstick-Ancillary (obtain specimen); Complete Time: 20:01 rn 18 18:31 Order name: EKG; Complete Time: 18:32 rn 18 18:31 Order name: EKG - Nurse/Tech; Complete Time: 18:34 rn 06/08 18:45 Order name: IV Saline Lock; Complete Time: 19:31 pm1 06/08 18:45 Order name: Labs collected and sent; Complete Time: 19:31 pm1 06/08 18:45 Order name: Chest Single View XRAY; Complete Time: 20:40 pm1 06/08 18:45 Order name: Troponin (emerg Dept Use Only); Complete Time: 20:19 pm1 06/08 18:45 Order name: Acetaminophen Level; Complete Time: 20:19 EDMS 06/08 18:45 Order name: Basic Metabolic Panel; Complete Time: 20:19 EDMS 06/08 19:35 Order name: SARS-COV-2 RT PCR; Complete Time: 20:19 EDMS 06/08 20:01 Order name: Urine Dipstick-Ancillary; Complete Time: 20:19 EDMS Administered Medications: 20:41 Drug: Rocephin (cefTRIAXone) 1 grams Route: IV; Rate: calculated rate; Site: right lp1 antecubital; 22:14 Follow up: IV Status: Completed infusion; IV Intake: 50ml lp1 Disposition: 06/09 08:40 Co-signature as Attending Physician, Vijay Benavides MD I agree with the assessment and rn plan of care. Attestation: The patient's history, exam findings, diagnostics, and a summary of any interventions or procedures was reviewed in detail with Fabio Clayton AUDIO VISUAL EQUIPMENT RENTAL CLERK. Disposition Summary: 06/08/21 22:00 Discharge Ordered Location: Home pm1 Problem: new pm1 Symptoms: have improved pm1 Condition: Stable pm1 Diagnosis - UTI/ Urinary tract infection, site not specified pm1 - Other stimulant abuse - methamphetamine abuse pm1 - Opioid abuse pm1 Followup: pm1 - With: Emergency Department - When: As needed - Reason: Worsening of condition Followup: pm1 - With: Private Physician - When: 2 - 3 days - Reason: Recheck today's complaints, Continuance of care, Re-evaluation by your physician Discharge Instructions: - Discharge Summary Sheet pm1 - Urinary Tract Infection, Adult pm1 - Methamphetamines Use Disorder pm1 - Opioid Use Disorder pm1 Forms: - Medication Reconciliation Form pm1 - Thank You Letter pm1 - Antibiotic Education pm1 - Prescription Opioid Use pm1 Prescriptions: - Bactrim DS 800-160 mg Oral Tablet - take 1 tablet by ORAL route every 12 hours for 10 days; 20 tablet; Refills: 0, pm1 Product Selection Permitted Signatures: Dispatcher [employer] EDMS Vijay Benavides MD MD rn Pena, Laura RN RN lp1 Fabio Clayton NP AUDIO VISUAL EQUIPMENT RENTAL CLERK pm1 Jackeline Harrell, RN RN jl7 Corrections: (The following items were deleted from the chart) 06/08 19:35 18:45 CORONAVIRUS+MR.LAB.BRZ ordered. EDMS EDMS
[2021-06-08 22:56] VITALS: TEMP 98.2
[2021-06-08 23:01] VITALS: BP 163/96
[2021-06-08 23:02] VITALS: O2SAT 96
--- NOTE | 2021-06-10 08:12 | EKG ---
Test Date: 2021-06-08 Test Time: 18:27:13 Social Security Specialist: LINDA MEASUREMENT RESULTS: Intervals: Rate: 101 MI: 144 QRSD: 136 QT: 406 QTc: 526 [place]: P: 23 MI: 144 QRS: -16 T: 9 INTERPRETIVE STATEMENTS: Sinus tachycardia Right bundle branch block Abnormal ECG Compared to ECG 12/09/2017 06:01:54 Right bundle-branch block now present Sinus rhythm no longer present Electronically Signed On 06-10-21 08:11:09 HEAD MILLER by Matias Shafer
== END 2021-06-08 22:49 | disposition home or self-care (01) ==
LOC: ER 18:20
DX: N39.0 Urinary tract infection, site not specified (principal); F15.10 Other stimulant abuse, uncomplicated; F11.10 Opioid abuse, uncomplicated; I10 Essential (primary) hypertension; Z91.018 Allergy to other foods
CPT/HCPCS: 96365; 93005; 87088; 85025; 87086; 80048; 36415; 80320; 80329 ×2; 85610; 80076; 85730; 84484; 80307; 70450; 71045; 99285; 96366; U0003; 81003; 81015

== ENCOUNTER 2022-01-27 12:06 | Inpatient (IN) | payer BC, SELFPAY ==
--- OUTSIDE RECORDS SUMMARY | 2022-01-27 12:10 | XMS REPORT | Continuity of Care Document ---
:1960 Author Organization [facility] t Address [address] [place] [address] Care Team Providers Name Role Phone Kenny Black Primary Care Physician Randy Metcalf MD Attending Clinician Doctor Unassigned, [place] Attending Clinician Unavailable Eliecer VIERA, Selvin Limon Attending Clinician Payers Payer Name Policy Type Policy Number Effective Date Expiration Date S ource Problems Condition Condition Condition Status Onset Resolution Last Treating Co mments Source Name Details Category Date Date Treatment Clinician Date Vasovagal Vasovagal Disease Active Uni vers syncope syncope 1-26 ity of 00:00: [address] MRSA MRSA Disease Active 2020-06 Univers bacteremia bacteremia 1-18 it y of 00:00: [address] 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 U nivers A1C A1C 1-18 ity of greater greater 00:00: [place] than 9%, than 9%, 00 Medica l indicating indicating Br anch poor poor diabetic diabetic control control 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 U nivers joint joint 1-18 [place] initial 00 Medical encounter encounter Bran 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 U nivers ccal ccal 1-15 [place] of arthritis [place] 00:[place] right of right 00 Medica l knee knee Branch Infection Infection Disease Active 2018-06 Uni vers at site of at site of 1-15 it y of external external 00:00: [place] fixator fixator 00 Medical pin, pin, Branch subsequent subsequent encounter encounter 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 Added automatic ally from request for surgery [id number] Allergies, Adverse Reactions, Alerts Allergy Allergy Status Severity Reaction(s) Onset Inactive Treating Comm ents Source Name Type Date Date Clinician No Known DA Active U 2018-06 [facility] 00:00: [facility] 00 are [place] Social History Social Habit Start Date Stop Date Quantity Comments Source Exposure to 2021-08-20 2021-09-19 Not sure [facility] SARS-CoV-2 (event) 00:00:00 16:28:00 Medica l Branch Tobacco use and 2017-12-31 2017-12-31 Never used [facility] exposure 00:00:00 00:00:00 Medical Branch Sex [birth year] [facility] 00:00:00 00:00:00 Medical Branch Smoking Status Start Date Stop Date Source Former smoker 2019-05-11 00:00:00 2019-05-11 00:00:00 [facility] Medical Branch Never smoker [facility] Medical Branch Medications Ordered Filled Start Stop Current Ordering Indication Dosage Frequency Signature Comments Components Source Medication Medication Date Date Medication? Clinician (SIG) Name Name minocycline 2021-0 Yes [id number] 100mg Take 1 Univers 100 mg 3-16 9107 capsule by ity of capsule 00:00: mouth [place] 00 every 12 Medical (twelve) Branch hours. minocycline 2021-0 Yes [id number] 100mg Take 1 Univers 100 mg 3-16 9107 capsule by ity of capsule 00:00: mouth [place] 00 every 12 Medical (twelve) Branch hours. minocycline 2021-0 Yes [id number] 100mg Take 1 Univers 100 mg 3-16 9107 capsule by ity of capsule 00:00: mouth [place] 00 every 12 Medical (twelve) Branch hours. OZEMPIC 1 2021- Yes INJECT 1 Univ ers mg/dose (4 2-24 MG UNDER ity o f mg/3 mL) 00:00: THE SKIN [place] PnIj 00 EVERY WEEK Medical Branch OZEMPIC 1 2021-0 Yes INJECT 1 Univ ers mg/dose (4 2-24 MG UNDER ity o f mg/3 mL) 00:00: THE SKIN [place] PnIj 00 EVERY WEEK Medical Branch OZEMPIC 1 0 Yes INJECT 1 Univ ers mg/dose (4 2-24 MG UNDER ity o f mg/3 mL) 00:00: THE SKIN [place] PnIj 00 EVERY WEEK Medical Branch glipiZIDE 5 2021-0 Yes 5mg Take 5 mg U nivers mg tablet 1-21 by mouth 2 ity of 00:00: (two) [place] 00 times Medical daily. Branch glipiZIDE 5 2021-0 Yes 5mg Take 5 mg U nivers mg tablet 1-21 by mouth 2 ity of 00:00: (two) [place] 00 times Medical daily. Branch glipiZIDE 5 2022-0 Yes 5mg Take 5 mg U nivers mg tablet 1-21 by mouth 2 ity of 00:00: (two) [place] 00 times Medical daily. Branch carvedilol 2020-06 Yes 3.125mg Take 3.125 Univers 3.125 mg 2-15 mg by ity of tablet 08:16: mouth 2 [place] 28 (two) Medical times Branch daily with meals. metoprolol 2020-06 Yes 25mg Take 25 mg U nivers succinate 2-15 by mouth ity of XL 25 mg 24 08:16: [place]. [place] hr tablet 28 Medical Branch carvedilol 2020-06 Yes 3.125mg Take 3.125 Univers 3.125 mg 2-15 mg by ity of tablet 08:16: mouth 2 [place] (two) Medical times Branch daily with meals. metoprolol 2020-06 Yes 25mg Take 25 mg U nivers succinate 2-15 by mouth ity of XL 25 mg 24 08:16: [place]. [place] hr tablet 28 Medical Branch carvedilol 2020-06 Yes 3.125mg Take 3.125 Univers 3.125 mg 2-15 mg by ity of tablet 08:16: mouth 2 [place] [address] (two) Medical times Branch daily with meals. metoprolol 2020-06 Yes 25mg Take 25 mg U nivers succinate 2-15 by mouth ity of XL 25 mg 24 08:16: [place]. [place] hr tablet 28 Medical Branch ibuprofen/d 2020-06- No Take by Un cody iphenhydram 1-20 11-20 mouth. ity o f ine cit 14:01: 00:00 [place] (ADVIL PM 08 :00 Medical ORAL) Branch mupirocin 2020-06 Yes [id number] 1g Use 1 g in Univers % nasal 1-20 9107 each ity of ointment 00:00: nostril [place] 00 every 12 Medical (twelve) Branch hours. Insulin 2020-06 Yes [id number] 20U inject 20 Univers Glargine 1-20 9107 Units ity of (LANTUS 00:00: under the [place] SOLOSTLA 00 skin at Medical U-100 bedtime. Branch INSULIN) 100 unit/mL (3 mL) injection mupirocin 2 2020-06 Yes [id number] 1g Use 1 g in Univers % nasal 1-20 9107 each ity of ointment 00:00: nostril [place] 00 every 12 Medical (twelve) Branch hours. Insulin 2020-06 Yes [id number] 20U inject 20 Univers Glargine 1-20 9107 Units ity of (LANTUS 00:00: under the [facility] 00 skin at Medical U-100 bedtime. Branch INSULIN) 100 unit/mL (3 mL) injection mupirocin 2 2020-06 Yes [id number] 1g Use 1 g in Univers % nasal - 9107 each ity of ointment 00:00: nostril [place] 00 every 12 Medical (twelve) Branch hours. Insulin 2020-06 Yes [id number] 20U inject 20 Univers Glargine 1-20 9107 Units ity of (LANTUS 00:00: under the [place] SOLOSTAR 00 skin at Medical U-100 bedtime. Branch INSULIN) 100 unit/mL (3 mL) injection Diabetic Yes [id number] Use as Un cody Supplies, 1-04 directed ity of Miscellan. 00:00: [place] Kit 00 Medical Branch Diabetic Yes [id number] Use as Un cody Supplies, 1-04 directed ity of Miscellan. 00:00: [place] Kit 00 Medical Branch Diabetic Yes [id number] Use as Un cody Supplies, 1-04 directed ity of Miscellan. 00:00: [place] Kit 00 Medical Branch traMADOL 50 Yes [id number] 50mg Take 1 Univers mg tablet 3-05 tablet by ity o f 00:00: mouth [place] 00 every 6 Medical (six) Branch hours as needed for Pain (scale 4-6) for up to 45 doses. traMADOL 50 Yes [id number] 50mg Take 1 Univers mg tablet 3-05 tablet by ity o f 00:00: mouth [place] 00 every 6 Medical (six) Branch hours as needed for Pain (scale 4-6) for up to 45 doses. traMADOL 50 Yes [id number] 50mg Take 1 Univers mg tablet 3-05 tablet by ity o f 00:00: mouth [place] 00 every 6 Medical (six) Branch hours as needed for Pain (scale 4-6) for up to 45 doses. metformin 2019- No Take by [facility] HCl 08-18 mouth. ity of (METFORMIN 18:21: 00:00 [place] ORAL) 51 :00 Medical Branch HYDROcodone Yes [id number] 1{tbl} Take 1 Univers -acetaminop 1-24 tablet by ity of hen 10-325 00:00: mouth [place] mg tablet 00 every 4 Medical (four) Branch hours as needed for Pain (scale 4-6) or Pain (scale 7-10). HYDROcodone Yes [id number] 1{tbl} Take 1 Univers -acetaminop 1-24 tablet by ity of hen 10-325 00:00: mouth [place] mg tablet 00 every 4 Medical (four) Branch hours as needed for Pain (scale 4-6) or Pain (scale 7-10). HYDROcodone Yes [id number] 1{tbl} Take 1 Univers -acetaminop 1-24 tablet by ity of hen 10-325 00:00: mouth [place] mg tablet 00 every 4 Medical (four) Branch hours as needed for Pain (scale 4-6) or Pain (scale 7-10). HYDROcodone Yes [id number] 1{tbl} Take 1 Univers -acetaminop 1-24 tablet by ity of hen 10-325 00:00: mouth [place] mg tablet 00 every 4 Medical (four) Branch hours as needed for Pain (scale 4-6) or Pain (scale 7-10). traMADOL 50 2019- No [id number] 50mg Take 1 Univers mg tablet 07-15 tablet by ity of 00:00: 00:00 mouth [place] 00 :00 every 6 Medical (six) Branch hours as needed for Pain (scale 4-6). enoxaparin 2019- No [id number] 30mg inject 0.3 Univers 30 mg/0.3 07-15 02-18 mL under ity o f mL 00:00: 05:59 the skin [place] injection 00 :00 every 12 Medica l (twelve) Branch hours for 24 days. metFORMIN 2017-06 Yes TK 1 T PO Uni vers 1,000 mg 2-04 BID ity of tablet 00:00: [place] 00 Medical Branch metFORMIN 2017-06 Yes TK 1 T PO Uni vers 1,000 mg 2-04 BID ity of tablet 00:00: [place] 00 Medical Branch metFORMIN 2017- Yes TK 1 T PO Uni vers 1,000 mg 2-04 BID ity of tablet 00:00: [place] 00 Medical Branch metFORMIN 2017- Yes TK 1 T PO Uni vers 1,000 mg 2-04 BID ity of tablet 00:00: [place] 00 Medical Branch lisinopril 2017- 2019- No TK 1 T PO U nivers 10 mg - 03- QD ity of tablet 00:00: 00:00 [place] 00 :00 Medical Branch glipiZIDE 5 2020- No TK 1 T PO Univers mg tablet 03-0120 BID ity of 00:00: 00:00 [place] 00 :00 Medical Branch amLODIPine 2019- No TK 1 T PO U nivers 5 mg tablet 01-14 D ity of 00:00: 00:00 [place] 00 :00 Medical Branch carvedilol 2019- No TK 1 T PO U nivers 3.125 mg 01-14 BID AT 6AM ity of tablet 00:00: 00:00 AND AT 6PM [place] 00 :00 [facility] Immunizations Ordered Filled Immunization Date Status Comments [facility] e Immunization Name Name Pneumococcal 2021-06-05 Completed [place] o f Polysaccharide, 00:00:00 [place] Med ical PPSV23 (PNEUMOVAX) Branch Pneumococcal 2021-06-05 Completed [place] o f Polysaccharide, 00:00:00 [place] Med ical PPSV23 (PNEUMOVAX) Branch Pneumococcal 2021-06-05 Completed [place] o f Polysaccharide, 00:00:00 [place] Med ical PPSV23 (PNEUMOVAX) Branch Td 2020-06-16 Completed University of 00:00:00 [facility] Td 2020-06-16 Completed University of 00:00:00 [facility] Td 2020-06-16 Completed University of 00:00:00 [facility] Vital Signs Vital Name Observation Time Observation Value Comments Source Body temperature 2021-09-19 21:47:00 36.83 [facility] Body height 2021-09-19 21:47:00 170.2 cm [facility] Body weight 2021-09-19 21:47:00 92.987 kg [facility] BMI 2021-09-19 21:47:00 32.11 kg/m2 [facility] Procedures Procedure Date / Time Performing Clinician Source Performed DME/SUPPLY JUSTIFICATION 2021-09-19 05:01:00 Doctor Unasscarrillo, No [facility] Encounters Start End Encounter Admission Attending Care Care Encounter Source Date/Time Date/Time Type Type Clinicians Facility Department ID 2021-09-19 2021-09-19 [facility] [id number] Univers 16:30:00 16:40:00 Visit Randy PRIMARY [id number] it y of [place] 4[place]7.2.[place] [facility] [id number] Mt dical 198 Branch 2021-09-19 2021-09-19 Orders Doctor DENNYS [id number] Univers 00:00:00 00:00:00 Only Unassigned, ABEL [id number] ity of [place] [facility] 4.2.7.2.686 T[place] as [id number] [place] [address] Branch 2018-08-03 2018-08-03 [facility] [id number] Univers 00:00:00 00:00:00 Management Selvin Braxton PRIMARY [id number] ity of [place]2.[place] [facility] [id number] [facility] 198 Branch Results Test Description Test Time Test Comments [...] code = LDLC) 148 mg/dL 0-100 H [id number] 07:29:00 Test Item Value Reference Range Interpretation Comments VANCOMYCIN (test code = VANCO) 12.1 ug/mL 5.0-40.0 N C REACTIVE [id number] 07:29:00 Test Item Value Reference Range Interpretation Comments C REACTIVE PROTEIN (test code = 13.20 mg/dL 0.00-0.33 H CRP) - XR TIBIA/FIBULA 2 V [id number] 22:38:00Patient Name: ANITA SHORT Unit No: [id number] EXAMS: CPT CODE: [id number] XR TIBIA/FIBUL[place] 2 [place] [address] Location code: A 1 Left tibia and fibula 2 views: Indication: Hardware evaluation Comparison: none Findings Complex external fixation device from calf to the hindfoot. Transverse pins in the foot and calf. Skin avani along the medial and lateral aspects of the distal calf and ankle. Erosive destruction of the ankle joint and hindfoot, [...] m2): Air Kerma (mGy): Trscr Dt/Tm: 03/22/2019 (2238) by:[email or web address] El ectronic Signature Date/Time: 03/22/2019 (223)Orig Print D/T: S: 03/22/2019 (2241) Name: ANITA SHORTJuan José [facility] [place] Phys: Tiff Bonds [address] : 1960 Age: 59 [place]: [place] [id number] Loc: SC.ERS Exam Date: 03/22/2019 Status: PRE ER PH:FAX: PAGE 1 Signed Report- XR ANKLE 2 VIEWS [id number] 22:35:00Patient Name: ANITA SHORT Unit No: [id number] EXAMS: CPT CODE: [id number] XR [place]KLE [address] [place] [address] Location code: A 1 Left ankle 2 views: Indication: Hardware evaluation Comparison: none Findings External fixation device at the level the ankle and mid calf, with transverse rods in the mid tibia and fibula and foot. Destruction of the ankle and subtalar joints, with amorphous bone formation in the adjacent soft tissues. Deformity and sclerosis of the posterior calcaneus and mid tarsus. Skin avani atthe medial and lateral aspects of the distal calf and ankle, with large soft tissue swelling. IMPRESSION: Postoperative changes of the ankle joint and foot. External fixation. Electronically Signedby Romie Flores MD on 03/22/2019 at 2235 Reported and signed by: Romie Flores MD CC: Tiff(ED) Jose C Technologist: Luciana Munson Time: DAP (Gy m2): Air Kerma(mGy): Trscr Dt/Tm: 03/22/2019 (2234) by:[email or web address] Electronic Signature Date/Time: 03/22/2019 (2234)Orig Print D/T: S: 03/22/2019 (2238) [facility] Phys: Tiff Campos [address] : 1960 Age: 59 Sex: [place] [id number] Loc: SC.ERS Exam Date: 03/22/2019 Status: PRE ER PH: FAX: PAGE 1 Signed ReportBASIC METABOLIC [id number] 21:29:00 Test Item Value Reference Range Interpretation [...] mg/dL 8.5-10.1 N = CA) LIVER FUNCTION [id number] 21:29:00 Test Item Value Reference Range Interpretation [...] 45-117 H ALKP) - XR CHEST 2 [id number] 21:25:00Patient Name: ANITA SHORT Unit No: [id number] EXAMS: CPT CODE: [id number] XR CHEST 2 V 29698 Dictationlocation: H37. CHEST, FRONTAL AND LATERAL VIEWS HISTORY: Fever COMPARISON: None. FINDINGS: The lungs are clear without consolidation. No pleural effusion or pneumothorax. The heart size is normal. Theaorta is partially calcified. Multiple healed right rib fractures. Mild degenerative changes affect the thoracic spine. IMPRESSION: No evidence of acute cardiopulmonary disease. at 2125 Reported and signed by: David Ross MD CC: Jose Luis Louie MD Technologist: Stephen Munson Time: DAP (Gy m2): Air Kerma (mGy): Trscr Dt/Tm: 03/22/2019 (2124) by:[email or web address] Electronic Signature Date/Time: 03/22/2019 (2124)Orig Print D/T: S: 03/22/2019 (2127) Name: ANITA SHORT [facility] [place] Phys: [place] [address] : 1960 Age: 59 [place]: [place] [id number] Loc: SC.ERS Exam Date: 03/22/2019 Status: PRE ER PH: FAX: PAGE 1 Signed ReportCBC W/AUTO [id number] 20:56:00 Test Item Value Reference Range Interpretation [...]
[2022-01-27 13:38] LABS: Absolute Lymphocytes (CBC) 1.5 K/uL (0.7-4.9); Lymphocytes % 15.6 % (15.3-44.8); MCV 76.9 fL (80-100); MPV 7.9 fL (7.6-11.3); RBC Red Blood Cell Count 4.43 M/uL (4.33-5.43)
[2022-01-27 14:04] LABS: Potassium 5.2 mmol/L (3.5-5.1); Troponin High Sensitivity 26.1 pg/mL (<58.9)
--- NOTE | 2022-01-27 14:24 | RAD REPORT ---
EXAM DESCRIPTION: RAD - Chest Single View - 01/27/2022 2:03 pm CLINICAL HISTORY: DYSPNEA COMPARISON: Chest Single View dated 06/08/2021 FINDINGS: Lines: None. Lungs: No evidence of edema or pneumonia. Pleural: No significant pleural effusions or pneumothorax. Cardiac: Cardiomegaly. Bones: Remote right-sided rib fractures. Advanced degenerative changes are present in the shoulders. Other: IMPRESSION: No acute cardiopulmonary disease.
[2022-01-27 14:33] LABS: Anisocytosis 2+; Blood Morphology Comment NOTED (NOT SEEN); Platelet Estimate ADEQ; White Blood Cell Scan OK (OK)
[2022-01-27 14:57] LABS: Albumin 2.5 g/dL (3.4-5.0); Bilirubin Direct 0.3 mg/dL (0-0.2); Bilirubin Total 0.5 mg/dL (0.2-1.0); Protein, Total 6.9 g/dL (6.4-8.2)
--- NOTE | 2022-01-27 15:09 | ER ---
Nurse's Notes [facility] Name: Vitaliy Cross Age: 61 yrs Sex: Male : 1960 Arrival Date: 01/27/2022 Time: 12:11 Bed 19 Private MD: Parth Black H Diagnosis: Dyspnea, unspecified;Anasarca Presentation: 01/27 12:26 Chief complaint: Patient states: shortness of breath, gained 40 lbs in last 30 days, kr3 Dr. black sent over to have cardiac workup. Coronavirus screen: Vaccine status: Patient reports being unvaccinated. Ebola Screen: Patient denies travel to an Ebola-affected area in the 21 days before illness onset. Initial Sepsis Screen: Does the patient meet any 2 criteria?. Initial Sepsis Screen: Does the patient meet any 2 criteria? No. Patient's initial sepsis screen is negative. Does the patient have a suspected source of infection? No. Patient's initial sepsis screen is negative. Risk Assessment: Do you want to hurt yourself or someone else? Patient reports no desire to harm self or others. Onset of symptoms was December 27, 2021. 12:26 Method Of Arrival: Wheelchair kr3 12:26 Acuity: LEVY 3 kr3 Triage Assessment: 12:32 General: Appears in no apparent distress. uncomfortable, Behavior is calm, cooperative, kr3 appropriate for age. Pain: Denies pain. Respiratory: Reports shortness of breath at rest Onset: The symptoms/episode began/occurred one month ago, the patient has mild shortness of breath. Historical: - Allergies: 12:30 No Known Allergies; kr3 - Home Meds: 14:36 amlodipine 5 mg tab 1 tab once daily [Active]; carvedilol 12.5 mg Oral tab 1 tab 2 villarreal times per day [Active]; Glipizide Oral [Active]; indomethacin 50 mg Oral cap 1 cap 2 times per day [Active]; metformin 500 mg/5 mL oral serr [Active]; - PMHx: 12:30 Diabetes - NIDDM; Hypertension; kr3 - PSHx: 12:30 ankle and knee sx; kr3 - Immunization history:: Client reports having NOT received the Covid vaccine. - Social history:: Smoking status: Patient/guardian denies using tobacco, the patient reports quitting approximately 30 years ago. - Family history:: not pertinent. - Hospitalizations: : No recent hospitalization is reported. Screenin:35 Abuse screen: Denies threats or abuse. Denies injuries from another. Nutritional villarreal screening: No deficits noted. Tuberculosis screening: No symptoms or risk factors identified. Fall Risk IV access (20 points). Assessment: 13:25 Reassessment: No changes from previously documented assessment. kr3 13:47 Reassessment: to X-ray via wheelchair. ll1 14:35 Cardiovascular: Reports shortness of breath, Rhythm is regular. Respiratory: Airway is villarreal patent Respiratory effort is even, unlabored, Breath sounds are diminished bilaterally. 14:41 GI: Abdomen is distended, Bowel sounds present X 4 quads. villarreal 19:15 Reassessment: No changes from previously documented assessment. ll3 Vital Signs: 12:26 BP 132 / 90; Pulse 89; Resp 20; Temp 97.1; Pulse Ox 99% on R/A; kr3 12:26 Weight 118.39 kg; Height 5 ft. 7 in. (170.18 cm); Pain 0/10; kr3 14:41 BP 150 / 103; Pulse 97; Resp 22; Pulse Ox 100% on R/A; villarreal 18:51 BP 143 / 97; Pulse 90; Resp 18; Pulse Ox 100% on R/A; villarreal 12:26 Body Mass Index 40.88 (118.39 kg, 170.18 cm) kr3 ED Course: 12:11 Patient arrived in ED. mr 12:12 Parth Black DO is Private Physician. mr 12:29 Stephen Mercer PA is PHCP. cp 12:29 Vijay Benavides MD is Attending Physician. cp 12:30 Triage completed. kr3 12:34 Arm band placed on. kr3 12:46 Vijay Benavides MD is Attending Physician. rn 13:11 SARS-COV-2 RT PCR (Document "Date of Onset" if Symptomatic) Sent. kr3 13:25 Inserted saline lock: 22 gauge in right antecubital area, using aseptic technique. kr3 Blood collected. 14:05 XRAY Chest (1 view) In Process Unspecified. EDMS 14:35 Halle Henley, RN is Primary Nurse. villarreal 14:35 Patient has correct armband on for positive identification. Bed in low position. villarreal 14:35 No provider procedures requiring assistance completed. Inserted saline lock:. villarreal 15:09 Hang Benavides MD is Hospitalizing Provider. rn 18:55 Inserted saline lock:. villarreal 21:03 Patient admitted, IV remains in place. ll3 Administered Medications: 15:22 Drug: Lasix (furosemide) 40 mg Route: IVP; Site: right antecubital; villarreal 15:23 Follow up: Response: No adverse reaction villarreal Medication: 14:35 VIS not applicable for this client. villarreal Outcome: 15:09 Decision to Hospitalize by Provider. rn 21:03 Admitted to Med/surg accompanied by tech, via wheelchair, room 203. ll3 21:03 Condition: stable 21:03 Instructed on the need for admit, Demonstrated understanding of instructions. 21:20 Patient left the ED. bb Signatures: Dispatcher [employer] EDAZ CasaPennie mr FletcherMaria Guadalupe taylor RN MELVIN bb Vijay Benavides MD MD rn Page, Corey, PA PA Josiah Joy RN RN ll1 Chong Juan RN RN ll3 Halle Henley RN RN ha Reid, Kelley, RN RN kr3 Corrections: (The following items were deleted from the chart) 12:32 12:30 Allergies: Banana; kr3 kr3
--- NOTE | 2022-01-27 15:10 | EDPHYS ---
Physician Documentation [facility] Name: Vitaliy Cross Age: 61 yrs Sex: Male : 1960 Arrival Date: 01/27/2022 Time: 12:11 Bed 19 Private MD: Parth Black H ED Physician Vijay Benavides HPI: 01/27 14:31 This 61 yrs old Male presents to ER via Wheelchair with complaints of Shortness Of rn Breath. 14:31 The patient has shortness of breath at rest, with light activity. Onset: The rn symptoms/episode began/occurred 1 week(s) ago. Duration: The symptoms are intermittent. The patient's shortness of breath is aggravated by exertion, light activity, talking, walking. Associated signs and symptoms: Pertinent positives: non-productive cough, Pertinent negatives: fever, hemoptysis, loss of consciousness. Severity of symptoms: At their worst the symptoms were moderate in the emergency department the symptoms are unchanged. The patient has not experienced similar symptoms in the past. The patient has been recently seen by a physician:. Sent by Dr. Black for volume overload, states 40# weight gain over last month. Denies any recent medication changes. No fever. + non-productive cough. Denies any liver problems. Not a drinker. . Historical: - Allergies: 12:30 No Known Allergies; kr3 - Home Meds: 14:36 amlodipine 5 mg tab 1 tab once daily [Active]; carvedilol 12.5 mg Oral tab 1 tab 2 villarreal times per day [Active]; Glipizide Oral [Active]; indomethacin 50 mg Oral cap 1 cap 2 times per day [Active]; metformin 500 mg/5 mL oral serr [Active]; - PMHx: 12:30 Diabetes - NIDDM; Hypertension; kr3 - PSHx: 12:30 ankle and knee sx; kr3 - Immunization history:: Client reports having NOT received the Covid vaccine. - Social history:: Smoking status: Patient/guardian denies using tobacco, the patient reports quitting approximately 30 years ago. - Family history:: not pertinent. - Hospitalizations: : No recent hospitalization is reported. ROS: 14:35 Constitutional: Negative for fever, chills, and weight loss, Eyes: Negative for injury, rn pain, redness, and discharge, Neck: Negative for injury, pain, and swelling, Cardiovascular: + palpitations and edema Respiratory: + sob and cough Abdomen/GI: Negative for abdominal pain, nausea, vomiting, diarrhea, and constipation, MS/Extremity: + swelling no injury or pain Skin: Negative for injury, rash, and discoloration, Neuro: Negative for headache, numbness, tingling, and seizure. Exam: 13:12 ECG was reviewed by the Attending Physician. rn 14:35 Constitutional: This is a well developed, well nourished patient who is awake, alert, rn +mild tachypnea Head/Face: Normocephalic, atraumatic. Eyes: Periorbital areas with no swelling, redness, or edema. ENT: No stridor Cardiovascular: Regular rate and rhythm. Respiratory: Mild tachypnea, no retractions Abdomen/GI: + pitting edema of abd wall, non-tender Back: + pitting edema lower back Skin: Warm, dry MS/ Extremity: Pulses equal, no cyanosis. 2+ pitting edema bilateral lower ext Neuro: Awake and alert, GCS 15 Vital Signs: 12:26 BP 132 / 90; Pulse 89; Resp 20; Temp 97.1; Pulse Ox 99% on R/A; kr3 12:26 Weight 118.39 kg; Height 5 ft. 7 in. (170.18 cm); Pain 0/10; kr3 14:41 BP 150 / 103; Pulse 97; Resp 22; Pulse Ox 100% on R/A; villarreal 18:51 BP 143 / 97; Pulse 90; Resp 18; Pulse Ox 100% on R/A; villarreal 12:26 Body Mass Index 40.88 (118.39 kg, 170.18 cm) kr3 MDM: 14:25 Patient medically screened. rn 15:08 Differential diagnosis: Anemia CHF exacerbation, Pneumothorax pulmonary edema, reactive rn airway disease. Data reviewed: vital signs, nurses notes, lab test result(s), EKG, radiologic studies, plain films, and as a result, I will admit patient. Counseling: I had a detailed discussion with the patient and/or guardian regarding: the historical points, exam findings, and any diagnostic results supporting the discharge/admit diagnosis, lab results, radiology results, the need for further work-up and treatment in the hospital. Response to treatment: There is no appreciated change of the patient's symptoms at this time, and as a result, I will admit patient. Admission orders: after a detailed discussion of the patient's condition and case, the admit orders are written by me. 01/27 12:46 Order name: Basic Metabolic Panel; Complete Time: 14:25 rn 01/27 12:46 Order name: CBC with Diff; Complete Time: 14:35 rn 01/27 12:46 Order name: NT PRO-BNP; Complete Time: 14:25 rn 01/27 12:46 Order name: Troponin HS; Complete Time: 14:25 rn 01/27 12:46 Order name: SARS-COV-2 RT PCR (Document "Date of Onset" if Symptomatic); Complete Time: rn 14:25 01/27 14:33 Order name: CBC Smear Scan; Complete Time: 14:35 EDND 01/27 12:46 Order name: XRAY Chest (1 view); Complete Time: 14:25 rn 01/27 12:46 Order name: EKG; Complete Time: 12:49 rn 01/27 14:35 Order name: LFT's; Complete Time: 15:05 rn 01/27 16:11 Order name: CONS Physician Consult EDND 01/27 19:42 Order name: Protime (+INR) EDND 01/27 19:48 Order name: Uric Acid EDND 01/27 19:51 Order name: PTT, Activated Partial Thromb EDND 01/27 12:46 Order name: Cardiac monitoring; Complete Time: 14:43 rn 01/27 12:46 Order name: EKG - Nurse/Tech; Complete Time: 13:11 rn 01/27 12:46 Order name: IV Saline Lock; Complete Time: 13:26 rn 01/27 12:46 Order name: Labs collected and sent; Complete Time: 13:26 rn 01/27 12:46 Order name: O2 Per Protocol; Complete Time: 14:43 rn 01/27 12:46 Order name: O2 Sat Monitoring; Complete Time: 14:43 rn EC:12 Rate is 93 beats/min. Rhythm is regular. QRS [place] is Normal. ND interval is normal. QRS rn interval is normal. QT interval is normal. No Q waves. T waves are Inverted in leads V1, V2, V3, V4, V5. No ST changes noted. Clinical impression: NSR w/ Non-specific ST/T Changes. Interpreted by me. Reviewed by me. Administered Medications: 15: Drug: Lasix (furosemide) 40 mg Route: IVP; Site: right antecubital; villarreal 15:23 Follow up: Response: No adverse reaction villarreal Disposition Summary: 01/27/22 15:09 Hospitalization Ordered Hospitalization Status: Inpatient Admission rn Provider: Hang Benavides rn Condition: Stable rn Problem: new rn Symptoms: have improved rn Bed/Room Type: Standard rn Location: Telemetry/MedSurg (Inpatient)(01/27/22 19:56) cg Room Assignment: [facility](01/27/22 19:56) Diagnosis - Dyspnea, unspecified rn - Chon rn Forms: - Medication Reconciliation Form rn - SBAR form rn Signatures: Dispatcher [employer] EDMS Vijay Benavides MD MD rn Garcia, Cindy RN RN Jackeline Alvarez RN RN [email or web address] Halle Henley RN Fany Gonzalez RN RN kr3 Corrections: (The following items were deleted from the chart) 12:32 12:30 Allergies: Banana; kr3 kr3 18:31 15:09 Telemetry/MedSurg (observation) rn jl7 18:31 15:09 rn [email or web address] 19:56 18:31 [facility] ER HOLD jl7 cg 19:56 18:31 ERHOLD- jl7 cg
[2022-01-27] MEDS ORDERED: FUROSEMIDE 40 MG/4 ML VIAL ONE (15:26)
[2022-01-27] MEDS ORDERED: ONDANSETRON 4 MG/2 ML VIAL IV PRN (17:51)
[2022-01-27] MEDS: FUROSEMIDE 40 MG/4 ML VIAL IV SCH (18:00)
--- NOTE | 2022-01-27 18:00 | P.HP ---
Certification for Inpatient Patient admitted to: Observation With expected LOS: <2 Midnights Practitioner: I am a practitioner with admitting privileges, knowledge of patient current condition, hospital course, and medical plan of care. Services: Services provided to patient in accordance with Admission requirements found in Title 42 Section 412.3 of the Code of Federal Regulations Patient History Date of Service: 01/27/22 Reason for admission: anasarca, new onset History of Present Illness: 61yo M, PMH: NIDDM2, HTN, R knee replacement Presents to ED due to swelling all over his body. He reports ~40lb weight gain over the last 1 month. He denies any cardiac/liver/renal disease. He does not recall any particular event that occurred just prior to noticing his swelling. Feels like swelling started and worsened quickly, and has maintained his current state for ~2 weeks or so already. Just before he began noticing the swelling, he did see his doctor for trouble falling and staying asleep. Denies FLIP symptoms. He was prescribed a sleep aide that he did not continue due to how it made him feel / side effects. No recent illness. Reports no change in urinary habits, no change in urine color/appearance, no difficulty initiating/maintaining urine stream. No nausea/vomiting, no diarrhea. He has been itching in his swollen legs and abdomen, scratching himself a lot lately. SO noticed he bruised easily 1-2 days ago, which is new as well. Denies hematuria, no blood in stool In the ED, he was noted to have anasarca, SpO2 >94% on room air at rest. CXR clear, anemia, normal LFTs with elevated alk phos, mildly elevated creatinine. Allergies banana Allergy (Verified 12/09/17 14:05) Unknown Home Medications: Metformin HCl 1,000 mg PO BIDWM #60 tablet 12/11/17 glipiZIDE [Glucotrol] 5 mg PO BIDWM #60 tablet 12/11/17 Hydrocodone Bit/Acetaminophen [Hydrocodon-Acetaminophn 10-325] 1 tab PO Q6H PRN 10/18/20 Metoprolol Succinate 1 tab PO BEDTIME 10/18/20 Vit C/E/Zn/Coppr/Lutein/Zeaxan [Preservision Areds 2 Softgel] 1 tab PO BID 10/18/20 - Past Medical/Surgical History Diabetic: Yes -: DM Type 2 -: HTN -: Obesity -: History of partial right thumb amputation, secondary to MRSA -: Former tobacco use -: Alcohol use -: Left Charcot arthropathy -: Partial thumb amputation -: Right knee replacement -: Lt ankle surgery 2017 Psychosocial/ Personal History: He is single. No children. 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 - Family History Father -: Heart disease, Hypertension - Social History Smoking Status: Former smoker Alcohol use: No CD- Drugs: No Caffeine use: Yes Place of Residence: Home Review of Systems 10-point ROS is otherwise unremarkable Physical Examination - Physical Exam General: Alert, In no apparent distress, Oriented x3 HEENT: Mucous membr. moist/pink, Other (periorbital edema), EOMI, Sclerae nonicteric Neck: Supple Respiratory: Clear to auscultation bilaterally, Diminished Cardiovascular: Regular rate/rhythm, Edema (anasarca, pitting up to abdominal wall) Gastrointestinal: Soft and benign, Distended Musculoskeletal: No contractures, No warmth Integumentary: No tenderness/swelling, Other (small scattered excoriations throughout abdomen and b/l legs ) Neurological: Normal speech, Normal affect - Studies Laboratory Data (last 24 hrs) 01/27/22 13:16: Total Bilirubin 0.5, AST 35, ALT 29, Alkaline Phosphatase 344 H 01/27/22 13:16: WBC 9.3, Hgb 10.9 L, Hct 34.0 L, Plt Count 335 01/27/22 13:16: Sodium 132 L, Potassium 5.2 H, BUN 30 H, Creatinine 1.42 H, Glucose 207 H Assessment and Plan - Advance Directives Does patient have a Living Will: Yes Does patient have a Durable POA for Healthcare: No Physician Review Additional Text: Problem List Anasarca NIDDM2 HTN morbid obesity elevated alk phos ROBER chronic pain unclear etiology CXR clear non-labored on room air at rest significant history of alcohol use, quit a few years ago elevated alk phos possible liver cirrhosis, suspect +ascites on exam abd U/S - eval liver, eval for ascites INR/PTT/PT ordered to eval function ROBER, unclear etiology patient denies any change in urinary habits, no difficulty urinating, nocturia 1-2x /night, no frothy urine possible nephrotic syndrome, but doesn't quite fit, UA, urine studies, renal u/s ordered monitor sodium / electrolytes, lasix ordered, watch for worsening hyponatremia possible CHF, no cardiac history. father had [facility] when young; pt does have risk factors, CXR clear, echo ordered check TSH/free t4 DM2 - sliding scale, accucheks chronic pain - continue home norco, SYSTEMS LIBRARIAN reviewed, no red flags confirm home HTN medications, restart as appropriate VTE: lovenox Code: full Dispo: home, ~1-2 days Time Spent Managing Pts Care (In Minutes): 75
[2022-01-27] MEDS: ENOXAPARIN 40 MG/0.4 ML SQ SCH (19:40)
[2022-01-27 19:42] LABS: Protime INR 1.45
[2022-01-27] MEDS: HYDROCODONE/APAP 10/325 TAB PO PRN (19:43)
[2022-01-27] MEDS ORDERED: HYDROCODONE/APAP 10/325 TAB ONE (19:46)
[2022-01-27] MEDS ORDERED: ENOXAPARIN 40 MG/0.4 ML SQ ONE (19:46)
[2022-01-27] MEDS: INSULIN -REGULAR HUMAN 50 UNIT/0.5 ML ML SQ SCH (21:00)
[2022-01-28 05:52] LABS: Absolute Lymphocytes (CBC) 1.4 K/uL (0.7-4.9); Hematocrit 34.9 % (39.6-49.0); Lymphocytes % 15.6 % (15.3-44.8); MCV 77.5 fL (80-100); MPV 7.9 fL (7.6-11.3); RBC Red Blood Cell Count 4.51 M/uL (4.33-5.43)
[2022-01-28 06:18] LABS: Albumin 2.4 g/dL (3.4-5.0); Bilirubin Total 0.6 mg/dL (0.2-1.0); Magnesium 1.9 mg/dL (1.8-2.4); Phosphorus 3.5 mg/dL (2.5-4.9); Potassium 4.6 mmol/L (3.5-5.1); Protein, Total 7.1 g/dL (6.4-8.2); Thyroid Stimulating Hormone 3.58 uIU/mL (0.360-3.740)
[2022-01-28] MEDS: INSULIN -REGULAR HUMAN 50 UNIT/0.5 ML ML SQ SCH ×4 (07:30→21:16)
--- NOTE | 2022-01-28 07:46 | RAD REPORT ---
EXAM DESCRIPTION: US - Urinary Bladder - 01/28/2022 5:14 am CLINICAL HISTORY: r/o hydro, eval kidneys COMPARISON: No comparisons FINDINGS: No gross abnormalities of the bladder identified. IMPRESSION: Unremarkable bladder ultrasound.
--- NOTE | 2022-01-28 07:49 | RAD REPORT ---
EXAM DESCRIPTION: US - Abdomen Exam Complete - 01/28/2022 5:14 am CLINICAL HISTORY: Abdominal pain COMPARISON: No comparisons FINDINGS: The abdominal aorta was not well visualized. The liver has an increased echotexture. The portal vein is patent. The IVC at the level of the liver is unremarkable. No ascites. Shadowing gallstones noted. Gallbladder wall is thickened measuring 4 millimeters. No biliary ductal dilatation. The pancreas was only partially visualized. The right kidney measures 11.5 cm normal echotexture. No hydronephrosis. No suspicious masses. The left kidney measures 9.9 cm with a normal echotexture. No hydronephrosis. No suspicious masses. The spleen is mildly enlarged measuring 13 cm. IMPRESSION: 1. Cholelithiasis with gallbladder wall thickening which remains nonspecific for acute c holecystitis. Correlate with LFTs. HIDA scan could confirm cystic duct patency. 2. Mild splenomegaly. 3. Hepatic steatosis. 4. Ascites.
[2022-01-28] MEDS: ENOXAPARIN 40 MG/0.4 ML SQ SCH (08:34)
[2022-01-28] MEDS: FUROSEMIDE 40 MG/4 ML VIAL IV SCH ×2 (08:34→17:08)
[2022-01-28 09:38] LABS: Urine Bilirubin Negative (Negative); Urine Blood Trace-intact (Negative); Urine Clarity Clear (Clear); Urine Color Yellow (Yellow); Urine Glucose Negative (Negative); Urine Protein 2+ (Negative); Urine Urobilinogen 0.2 mg/dL (0.2-1.0); Urine pH 6.5 (5.0-7.0)
[2022-01-28 10:19] LABS: Urine Bacteria <20 /HPF (<20); Urine Crystals Unidentified Few /HPF (None Seen); Urine RBC <5 /HPF (None Seen)
--- NOTE | 2022-01-28 10:40 | EKG ---
Test Date: 2022-01-27 Test Time: 13:02:21 Social Director: CECILIA MEASUREMENT RESULTS: Intervals: Rate: 93 [place]: 146 QRSD: 132 QT: 410 QTc: 509 [place]: P: 59 [place]: 146 QRS: -1 T: 102 INTERPRETIVE STATEMENTS: Sinus rhythm with premature atrial complexes Right bundle branch block T wave abnormality, consider lateral ischemia Abnormal ECG Compared to ECG 06/08/2021 18:27:13 Atrial premature complex(es) now present T-wave abnormality now present Possible ischemia now present Sinus tachycardia no longer present Electronically Signed On 01-28-22 10:36:15 CDT by Matias Shafer
--- NOTE | 2022-01-28 11:34 | ECHO ---
HEIGHT: 5 ft 7 in WEIGHT: 261 lb 0 oz DATE OF STUDY: 01/28/[address]: Cal Siddiqi MD 2-DIMENSIONAL: YES M.MODE: YES DOPPLER: YES COLOR FLOW: YES TDS: NO PORTABLE: YES DEFINITY: NO BUBBLE STUDY: NO DIAGNOSIS: ANASARCA CARDIAC HISTORY: CATHERIZATION: NO SURGERY: NO PROSTHETIC VALVE: NO PACEMAKER: NO MEASUREMENTS (cm) DIASTOLIC (NORMALS) SYSTOLIC (NORMALS) IVSd 1.1 (0.6-1.2) LA Diam 4.6 (1.9-4.0) LVEF 31% LVIDd 4.6 (3.5-5.7) LVIDs 3.9 (2.0-3.5) %FS 14% LVPWd 1.3 (0.6-1.2) Ao Diam 3.2 (2.0-3.7) 2 DIMENSIONAL ASSESSMENT: RIGHT ATRIUM: NORMAL LEFT ATRIUM: DILATED RIGHT VENTRICLE: NORMAL LEFT VENTRICLE: NORMAL SIZE TRICUSPID VALVE: NORMAL MITRAL VALVE: MITRAL ANNULAR CALCIFITATION PULMONIC VALVE: NORMAL AORTIC VALVE: SCLEROSIS PERICARDIAL EFFUSION: SMALL AORTIC ROOT: NORMAL LEFT VENTRICULAR WALL MOTION: SEVERE GLOBAL HYPOKINESIS. DOPPLER/COLOR FLOW: MILD MITRAL AND TRICUSPID REGURGITATION. COMMENTS: SEVERE GLOBAL HYPOKINESIS. LEFT VENTRICULAR EJECTION FRACTION 31%. LEFT ATRIAL ENLARGEMENT. MITRAL ANNULAR CALCIFICATION. AORTIC SCLEROSIS. TECHNOLOGIST: Jackie BOB
--- NOTE | 2022-01-28 12:04 | P.PN ---
Subjective Date of Service: 01/28/22 Chief Complaint: anasarca, new onset No major changes from yesterday. No improvement in anasarca. Physical Examination - Vital Signs Temperature: 97.5 F Blood Pressure: 154/94 Pulse: 107 Respirations: 19 Pulse Ox (%): 96 - Studies Laboratory Data (last 24 hrs) 01/27/22 19:23: APTT 32.0 01/27/22 19:23: Uric Acid 6.8 01/27/22 19:23: PT 16.1 H, INR 1.45 01/27/22 13:16: Total Bilirubin 0.5, AST 35, ALT 29, Alkaline Phosphatase 344 H 01/27/22 13:16: WBC 9.3, Hgb 10.9 L, Hct 34.0 L, Plt Count 335 01/27/22 13:16: Sodium 132 L, Potassium 5.2 H, BUN 30 H, Creatinine 1.42 H, Glucose 207 H Assessment And Plan - Plan Physical Exam General: Alert, In no apparent distress, Oriented x3 Neck: Supple Respiratory: Clear to auscultation bilaterally, Diminished Cardiovascular: Regular rate/rhythm, Edema-generalized. Gastrointestinal: Soft and benign, edematous abdominal wall. Ascites. Musculoskeletal: No contractures, No warmth Integumentary: small scattered excoriations throughout abdomen and b/l legs ) Neurological: Normal speech, Normal affect, no focal motor deficit. Problem List Anasarca NIDDM2 HTN morbid obesity elevated alk phos ROBER chronic pain Hyponatremia. Differential diagnosis for anasarca include systolic heart failure, liver cirrhosis or nephrotic syndrome. Acuity of heart failure unknown. CXR clear. Cardiology consult. significant history of alcohol use, quit a few years ago elevated alk phos possible liver cirrhosis. Abdominal ultrasound shows hepatic steatosis. INR/PTT/PT ordered to eval function ROBER, unclear etiology Possible nephrotic syndrome. UA shows proteinuria. Continue IV Lasix and monitor intake and output. Titrate Lasix for response monitor sodium / electrolytes. Free water restriction. TSH/free t4 unremarkable. DM2 - sliding scale, accucheks chronic pain - continue home norco. Continue other home medications.
[2022-01-28] MEDS: HYDROCODONE/APAP 10/325 TAB PO PRN ×2 (12:41→19:43)
[2022-01-28] MEDS: ALBUTEROL 2.5 MG/3 ML NEB SOL NEB PRN (14:20)
[2022-01-28] MEDS ORDERED: ALBUTEROL 2.5 MG/3 ML NEB SOL ONE (14:28)
[2022-01-28] MEDS: MELATONIN 5 MG TABLET PO PRN (21:07)
[2022-01-28] MEDS: LIDOCAINE 4% PATCH TOP SCH (21:08)
[2022-01-29 04:26] LABS: Absolute Lymphocytes (CBC) 0.9 K/uL (0.7-4.9); Hematocrit 33.2 % (39.6-49.0); Lymphocytes % 11.8 % (15.3-44.8); MPV 7.5 fL (7.6-11.3); RBC Red Blood Cell Count 4.43 M/uL (4.33-5.43)
[2022-01-29 04:32] LABS: Potassium 3.9 mmol/L (3.5-5.1)
[2022-01-29] MEDS: INSULIN -REGULAR HUMAN 50 UNIT/0.5 ML ML SQ SCH ×4 (07:30→21:06)
[2022-01-29] MEDS ORDERED: POTASSIUM CL SA 10 MEQ TAB PO ONE (09:00)
[2022-01-29] MEDS: LIDOCAINE 4% PATCH TOP SCH ×2 (10:06→16:13)
[2022-01-29] MEDS: HYDROCODONE/APAP 10/325 TAB PO PRN ×2 (10:08→16:12)
[2022-01-29] MEDS: FUROSEMIDE 40 MG/4 ML VIAL IV SCH ×2 (10:10→17:22)
[2022-01-29] MEDS: ENOXAPARIN 40 MG/0.4 ML SQ SCH (10:12)
[2022-01-29] MEDS: ALBUTEROL 2.5 MG/3 ML NEB SOL NEB PRN (11:13)
--- NOTE | 2022-01-29 15:17 | P.PN ---
Subjective Date of Service: 01/29/22 Chief Complaint: anasarca, new onset Patient's ascites and scrotal edema are improving. Leg edema remained the same since yesterday Patient reports improvement in shortness of breath. Physical Examination - Vital Signs Temperature: 97.1 F Blood Pressure: 153/86 Pulse: 113 Respirations: 16 Pulse Ox (%): 97 Assessment And Plan - Plan Physical Exam General: Alert, In no apparent distress, Oriented x3 Neck: Supple Respiratory: Clear to auscultation bilaterally, Diminished Cardiovascular: Regular rate/rhythm, Edema-generalized. Gastrointestinal: Soft and benign, edematous abdominal wall. Ascites improving. Genitourinary: Scrotal edema-improving Musculoskeletal: No contractures, No warmth Integumentary: small scattered excoriations throughout abdomen and b/l legs ) Neurological: Normal speech, Normal affect, no focal motor deficit. Problem List Anasarca NIDDM2 HTN morbid obesity elevated alk phos ROBER chronic pain Hyponatremia. Differential diagnosis for anasarca include systolic heart failure, liver cirrhosis or nephrotic syndrome. Acuity of heart failure unknown. CXR clear. Patient to be seen by cardiology significant history of alcohol use, quit a few years ago elevated alk phos possible liver cirrhosis. Abdominal ultrasound shows hepatic steatosis. INR mildly elevated. ROBER resolved. Possible nephrotic syndrome. UA shows proteinuria. Check urine albumin creatinine ratio. Continue IV Lasix and monitor intake and output. Titrate Lasix for response. monitor sodium / electrolytes. Free water restriction. TSH/free t4 unremarkable. DM2 - sliding scale, accucheks chronic pain - continue home norco. Continue other home medications.
--- NOTE | 2022-01-29 16:46 | CON ---
Date of Consultation: 01/29/[address] Siddiqi on 01/27/2022 with shortness of breath. I saw the patient on 01/29/2022. Reason For Consultation: Congestive heart failure. History Of Present Illness: Mr. Cross is 61. History of hypertension, diabetes. Does not have a [facility] physician. Came in with shortness of breath, PND, orthopnea, pedal edema. No chest pain. No palpitation. No syncope. Denied any fever or chills or cough. While he was in the hospital, ec hocardiogram which was done yesterday showed an ejection fraction of 31% with severe global hypokines is. Past Medical History: As stated above. Allergies: NONE. Review of Systems: Negative. Social History: Negative. Family History: Noncontributory. Medications: At home include metformin, metoprolol, and glipizide. Physical Examination: Vital Signs: Today, his vital signs were stable. He was in sinus tachycardia, rate of 115. Blood p ressure was 159/98. HEENT: Negative. Neck: Supple with no bruit. Chest: Rales at both bases. Cardiac: Regular rhythm and rate with S3 gallops. No murmurs or rubs. Abdomen: Benign. Extremities: 1+ edema. Diagnostic Data: Chest x-ray was negative. EKG showed right bundle branch block. Creatinine is 1.0 . Hemoglobin is 10.8. BNP is 8200. Echocardiogram showed ejection fraction 31%. Impression And Plan: New-onset congestive heart failure in a patient with diabetes and hypertension. I think he should have an outpatient Lexiscan and/or catheterization down the road, but for now, we will need to optimize his congestive heart failure treatment. Needs to be on Lasix. Needs to be on carvedilol, ROQUE inhibitor, and Aldactone and he can go home whenever it is okay with Dr. Siddiqi and we will see him in the office in the very near future. KATIUSKA/TERESAL Voice ID: [id number] Report ID: [id number]
[2022-01-30] MEDS: MELATONIN 5 MG TABLET PO PRN ×2 (01:06→20:55)
[2022-01-30] MEDS: HYDROCODONE/APAP 10/325 TAB PO PRN ×4 (01:06→20:54)
[2022-01-30 06:04] LABS: Potassium 3.7 mmol/L (3.5-5.1)
[2022-01-30 06:07] LABS: Hematocrit 31.7 % (39.6-49.0); Lymphocytes % 15.2 % (15.3-44.8); MPV 7.7 fL (7.6-11.3); RBC Red Blood Cell Count 4.17 M/uL (4.33-5.43)
[2022-01-30] MEDS: INSULIN -REGULAR HUMAN 50 UNIT/0.5 ML ML SQ SCH ×4 (07:30→20:55)
[2022-01-30] MEDS: LIDOCAINE 4% PATCH TOP SCH ×2 (08:37→16:54)
[2022-01-30] MEDS: ENOXAPARIN 40 MG/0.4 ML SQ SCH (08:38)
[2022-01-30] MEDS: FUROSEMIDE 40 MG/4 ML VIAL IV SCH ×2 (08:39→16:50)
[2022-01-30] MEDS ORDERED: POTASSIUM CL SA 10 MEQ TAB PO ONE (09:00)
--- NOTE | 2022-01-30 13:28 | P.PN ---
Subjective Date of Service: 01/30/22 Chief Complaint: anasarca, new onset Patient's ascites and scrotal edema and leg edema continue to improve. He was seen ambulating with a walker. Physical Examination - Vital Signs Temperature: 98.3 F Blood Pressure: 126/78 Pulse: 107 Respirations: 18 Pulse Ox (%): 94 Assessment And Plan - Plan Physical Exam General: Alert, In no apparent distress, Oriented x3 Neck: Supple Respiratory: Clear to auscultation bilaterally, Diminished Cardiovascular: Regular rate/rhythm, Edema-generalized. Gastrointestinal: Soft and benign, edematous abdominal wall. Ascites improving. Genitourinary: Scrotal edema-improving Musculoskeletal: No contractures, No warmth Integumentary: small scattered excoriations throughout abdomen and b/l legs ) Neurological: Normal speech, Normal affect, no focal motor deficit. Problem List Anasarca NIDDM2 HTN morbid obesity elevated alk phos ROBER chronic pain Hyponatremia. Differential diagnosis for anasarca include systolic heart failure, liver cirrhosis. Acuity of heart failure unknown. CXR clear. Patient to be seen by cardiology. Dr. Shafer recommending outpatient stress test or cardiac cath. significant history of alcohol use, quit a few years ago elevated alk phos possible liver cirrhosis. Abdominal ultrasound shows hepatic steatosis. INR mildly elevated. ROBER resolved. Possible nephrotic syndrome. UA shows proteinuria. Does not meet criteria for nephrotic syndrome. Start lisinopril, Aldactone and Coreg for LV dysfunction. Continue IV Lasix and monitor intake and output. Titrate Lasix for response. monitor sodium / electrolytes. Free water restriction. TSH/free t4 unremarkable. DM2 - sliding scale, accucheks chronic pain - continue home dose norco. Continue other home medications. Possible discharge in a.m.
[2022-01-30] MEDS: carvediloL 6.25 MG TAB PO SCH (20:52)
[2022-01-31] MEDS: HYDROCODONE/APAP 10/325 TAB PO PRN ×2 (02:02→08:44)
[2022-01-31 04:20] LABS: Absolute Lymphocytes (CBC) 1.5 K/uL (0.7-4.9); Hematocrit 34.7 % (39.6-49.0); Lymphocytes % 18.7 % (15.3-44.8); MCV 76.4 fL (80-100); MPV 7.4 fL (7.6-11.3); RBC Red Blood Cell Count 4.54 M/uL (4.33-5.43)
[2022-01-31 05:35] LABS: Anisocytosis 2+; Blood Morphology Comment NOTED (NOT SEEN); Ovalocytes 2+; Platelet Estimate ADEQ; White Blood Cell Scan OK (OK)
[2022-01-31 05:52] VITALS: BMI 32.8
[2022-01-31 08:29] VITALS: BP 147/90; TEMP 97.5
[2022-01-31] MEDS: INSULIN -REGULAR HUMAN 50 UNIT/0.5 ML ML SQ SCH (08:43)
[2022-01-31] MEDS: ENOXAPARIN 40 MG/0.4 ML SQ SCH (08:45)
[2022-01-31] MEDS: LIDOCAINE 4% PATCH TOP SCH (08:45)
[2022-01-31] MEDS: carvediloL 6.25 MG TAB PO SCH (08:45)
[2022-01-31] MEDS: lisinopriL 5 MG TAB PO SCH ×2 (08:46→08:49)
[2022-01-31] MEDS: FUROSEMIDE 40 MG/4 ML VIAL IV SCH (08:46)
[2022-01-31 08:53] VITALS: O2SAT 96
[2022-01-31] MEDS ORDERED: SPIRONOLACTONE 25 MG TABLET PO SCH (09:00)
--- NOTE | 2022-01-31 09:17 | P.DS ---
Admission Date: 01/27/22 Discharge Date: 01/31/22 Disposition: ROUTINE DISCHARGE Discharge Condition: FAIR Reason for Admission: anasarca, new onset Brief History of Present Illness: 61yo M, PMH: NIDDM2, HTN, R knee replacement Presents to ED due to swelling all over his body. He reports ~40lb weight gain over the last 1 month. He denies any cardiac/liver/renal disease. He does not recall any particular event that occurred just prior to noticing his swelling. Feels like swelling started and worsened quickly, and has maintained his current state for ~2 weeks or so already. Just before he began noticing the swelling, he did see his doctor for trouble falling and staying asleep. Denies FLIP symptoms. He was prescribed a sleep aide that he did not continue due to how it made him feel / side effects. No recent illness. Reports no change in urinary habits, no change in urine color/appearance, no difficulty initiating/maintaining urine stream. No nausea/vomiting, no diarrhea. He has been itching in his swollen legs and abdomen, scratching himself a lot lately. SO noticed he bruised easily 1-2 days ago, which is new as well. Denies hematuria, no blood in stool In the ED, he was noted to have anasarca, SpO2 >94% on room air at rest. CXR clear, anemia, normal LFTs with elevated alk phos, mildly elevated creatinine. Hospital Course: Diagnosis Acute systolic heart failure Anasarca NIDDM2 HTN morbid obesity elevated alk phos ROBER chronic pain Hyponatremia. Differential diagnosis for anasarca include systolic heart failure vs liver cirrhosis. Troponin negative. Echocardiogram demonstrated EF of 31% CXR clear. Patient to be seen by cardiology. Dr. Shafer recommending outpatient stress test or cardiac cath for new onset CHF. significant history of alcohol use, quit a few years ago elevated alk phos possible liver cirrhosis. Abdominal ultrasound showed hepatic steatosis. INR mildly elevated. He had ROBER which resolved. UA showed proteinuria but does not meet criteria for nephrotic syndrome. Patient started on lisinopril, Aldactone and Coreg for LV dysfunction. He was treated aggressively with IV Lasix. Patient diuresed well and lost weight. His anasarca improved, scrotal edema also improved. Was placed on free water restriction. TSH/free t4 unremarkable. DM2 - sliding scale, accucheks chronic pain - continued home dose norco. Continue other home medications. Patient has shown clinical improvement with significant weight loss. He is prescribed Lasix therapy, Aldactone, Coreg and lisinopril. He is informed to follow-up with Dr. Shafer within [address] Shafer is planning further outpatient cardiac work-up. Vital Signs/Physical Exam: Temp Pulse Resp BP Pulse Ox 97.5 F 103 H 18 147/90 H 96 01/31/22 08:00 01/31/22 08:46 01/31/22 08:44 01/31/22 08:46 01/31/22 08:44 General: Alert, In no apparent distress, Oriented x3 HEENT: Mucous membr. moist/pink Neck: JVD not distended Respiratory: Clear to auscultation bilaterally, Normal air movement Cardiovascular: Regular rate/rhythm, Normal S1 S2, Edema (Bilateral lower extremity) Gastrointestinal: Normal bowel sounds, Soft and benign, Other (Abdominal wall edema) Musculoskeletal: Swelling (Bilateral legs) Integumentary: Other (Left lower extremity venous stasis dermatitis) Neurological: Normal strength at 5/5 x4 extr Laboratory Data at Discharge: WBC 7.8 K/uL (4.3-10.9) 01/31/22 03:55 Hgb 11.2 g/dL (13.6-17.9) L 01/31/22 03:55 Hct 34.7 % (39.6-49.0) L 01/31/22 03:55 Plt Count 283 K/uL (152-406) 01/31/22 03:55 PT 16.1 SECONDS (9.5-12.5) H 01/27/22 19:23 INR 1.45 01/27/22 19:23 APTT 32.0 SECONDS (24.3-36.9) 01/27/22 19:23 Sodium 134 mmol/L (136-145) L 01/31/22 03:55 Potassium 4.0 mmol/L (3.5-5.1) 01/31/22 03:55 BUN 15 mg/dL (7-18) 01/31/22 03:55 Creatinine 1.05 mg/dL (0.55-1.3) 01/31/22 03:55 Glucose 191 mg/dL (74-106) H 01/31/22 03:55 Uric Acid 6.8 mg/dL (3.5-7.2) 01/27/22 19:23 Phosphorus 3.5 mg/dL (2.5-4.9) 01/28/22 05:23 Magnesium 1.9 mg/dL (1.8-2.4) 01/28/22 05:23 Total Bilirubin 0.6 mg/dL (0.2-1.0) 01/28/22 05:23 AST 31 U/L (15-37) 01/28/22 05:23 ALT 26 U/L (12-78) 01/28/22 05:23 Alkaline Phosphatase 329 U/L (45-117) H 01/28/22 05:23 Home Medications: Metformin HCl 1,000 mg PO BIDWM #60 tablet 12/11/17 glipiZIDE [Glucotrol] 5 mg PO BIDWM #60 tablet 12/11/17 Hydrocodone Bit/Acetaminophen [Hydrocodon-Acetaminophn 10-325] 1 tab PO BID PRN 10/18/20 Metoprolol Succinate 1 tab PO BEDTIME 10/18/20 Furosemide [Lasix] 40 mg PO BIDL #90 tab 01/31/22 Lidocaine 4% Patch [Lidoderm 5% Patch*] 2 patch TOP DAILY #30 patch 01/31/22 Melatonin 5 mg PO BEDTIME PRN PRN #30 tab 01/31/22 Spironolactone [Aldactone*] 25 mg PO DAILY #30 tab 01/31/22 lisinopriL [Prinivil*] 5 mg PO DAILY #30 tab 01/31/22 New Medications: Spironolactone [Aldactone*] 25 mg PO DAILY #30 tab Furosemide [Lasix] 40 mg PO BIDL #90 tab Lidocaine 4% Patch [Lidoderm 5% Patch*] 2 patch TOP DAILY #30 patch Melatonin 5 mg PO BEDTIME PRN PRN #30 tab PRN Reason: Insomnia lisinopriL [Prinivil*] 5 mg PO DAILY #30 tab Followup: Matias Shafer MD [ACTIVE - CAN ADMIT] - 1 Week (Call to schedule appointment ) Parth Black DO, DO [Primary Care Provider] - (Call to schedule appointment.) Time spent managing pt's care (in minutes): 40
== END 2022-01-31 11:50 | disposition home or self-care (01) | DRG 291 ==
LOC: ER 12:06 → ERHOLD 16:08 → 2ND 20:04 → OBSVTOIN 20:59
PROVIDERS: ADMIT Hospitalist; ATTEND Hospitalist
DX: I11.0 Hypertensive heart disease with heart failure (principal); I50.21 Acute systolic (congestive) heart failure; N17.9 Acute kidney failure, unspecified; E87.1 Hypo-osmolality and hyponatremia; E11.9 Type 2 diabetes mellitus without complications; E66.01 Morbid (severe) obesity due to excess calories; Z68.32 Body mass index [BMI] 32.0-32.9, adult; G89.29 Other chronic pain; R60.1 Generalized edema; K74.60 Unspecified cirrhosis of liver; F10.21 Alcohol dependence, in remission; K76.0 Fatty (change of) liver, not elsewhere classified; I87.2 Venous insufficiency (chronic) (peripheral); Z96.651 Presence of right artificial knee joint; Z20.822 Contact with and (suspected) exposure to COVID-19
CPT/HCPCS: 36415; 71045; 76700; 76857; 80048; 80053; 80076; 81001; 82570; 82947; 83735; 83880; 83930; 83935; 84100; 84132; 84156; 84300; 84439; 84443; 84484; 84550; 85025; 85610; 85730; 93005; 93306; 94640; 94760; 96374; 97161; 99285; G0378; J1650; J1815; J1940; J2001; U0003

== ENCOUNTER 2022-02-08 22:27 | Emergency (ER) | payer OTHER, SELFPAY ==
--- OUTSIDE RECORDS SUMMARY | 2022-02-08 22:30 | XMS REPORT | Continuity of Care Document ---
:1960 Author Organization [facility] t Address [address] [place] [address] Care Team Providers Name Role Phone Kenny Black Primary Care Physician Randy Metcalf MD Attending Clinician Doctor Unassigned, [place] Attending Clinician Unavailable Eliecer VIERA, Selvin Limon Attending Clinician Payers Payer Name Policy Type Policy Number Effective Date Expiration Date S ource Problems Condition Condition Condition Status Onset Resolution Last Treating Co mments Source Name Details Category Date Date Treatment Clinician Date Vasovagal Vasovagal Disease Active Uni vers syncope syncope 26 ity of 00:00: [address] MRSA MRSA Disease Active 2020-06 Univers bacteremia bacteremia 1-18 it y of 00:00: [address] 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 U nivLiztic A1C A1C 1-18 ity of greater greater [...] 1-15 it y of external external 00:00: [place] fixator fixator 00 Medical pin, pin, Branch subsequent subsequent encounter encounter Uncontroll Uncontroll Disease Active 2018-06 U hien ed type 2 ed type 2 0-21 ity of diabetes diabetes 00:00: [place] mellitus mellitus 00 Medica l with with [...] 3-18 it y of surgery, surgery, 00:00: [place] follow-up follow-up 00 [facility] exam exam Branch Chronic Chronic Disease [...] with ankle with 00:00: g of this [place] fat layer fat layer 00 note Medi sami exposed exposed might be Branch different from the original. Added automatic ally from request for surgery [id number] Allergies, Adverse Reactions, Alerts Allergy Allergy Status Severity Reaction(s) Onset Inactive Treating Comm ents Source Name Type Date Date Clinician No Known DA Active U 2018-06 [facility] Allergie 0-01 [facility] s 00:00: [facility] 00 are [place] Social History Social Habit Start Date Stop Date Quantity Comments Source Exposure to 2021-08-20 2021-09-19 Not sure [facility] SARS-CoV-2 (event) 00:00:00 16:28:00 Medica l Branch Tobacco use and 2017-12-31 2017-12-31 Never used [facility] exposure 00:00:00 00:00:00 Medical Branch Sex [birth year] [facility] 00:00:00 00:00:00 Medical Branch Smoking Status Start Date Stop Date Source Former smoker 2019-05-11 00:00:00 2019-05-11 00:00:00 [facility] Medical Branch Never smoker [facility] Medical Branch Medications Ordered Filled Start Stop Current Ordering Indication Dosage Frequency Signature Comments Components Source Medication Medication Date Date Medication? Clinician (SIG) Name Name minocycline 2021-0 Yes [id number] 100mg Take 1 Univers 100 mg 3-16 9107 capsule by ity of capsule 00:00: mouth [place] 00 every 12 Medical (twelve) Branch hours. minocycline 2021-0 Yes [id number] 100mg Take 1 Univers 100 mg 3-16 9107 capsule by ity of capsule 00:00: mouth [place] 00 every 12 Medical (twelve) Branch hours. minocycline 2021-0 Yes [id number] 100mg Take 1 Univers 100 mg 3-16 9107 capsule by ity of capsule 00:00: mouth [place] 00 every 12 Medical (twelve) Branch hours. OZEMPIC 1 2021- Yes INJECT 1 Univ ers mg/dose (4 2-24 MG UNDER ity o f mg/3 mL) 00:00: THE SKIN [place] PnIj 00 EVERY WEEK Medical Branch OZEMPIC 1 2021-0 Yes INJECT 1 Univ ers mg/dose (4 2-24 MG UNDER ity o f mg/3 mL) 00:00: THE SKIN [place] PnIj 00 EVERY WEEK Medical Branch OZEMPIC 1 2021-0 Yes INJECT 1 Univ ers mg/dose (4 2-24 MG UNDER ity o f mg/3 mL) 00:00: THE SKIN [place] PnIj 00 EVERY WEEK Medical Branch glipiZIDE 5 2021-0 Yes 5mg Take 5 mg U nivers mg tablet 1-21 by mouth 2 ity of 00:00: (two) [place] 00 times Medical daily. Branch glipiZIDE 5 2021-0 Yes 5mg Take 5 mg U nivers mg tablet 1-21 by mouth 2 ity of 00:00: (two) [place] 00 times Medical daily. Branch glipiZIDE 5 Yes 5mg Take 5 mg U nivers mg tablet 1-21 by mouth 2 ity of 00:00: (two) [place] 00 times Medical daily. Branch carvedilol 2020-06 Yes 3.125mg Take 3.125 Univers 3.125 mg 2-15 mg by ity of tablet 08:16: mouth 2 [place] [address] (two) Medical times Branch daily with meals. metoprolol 2020-06 Yes 25mg Take 25 mg U nivers succinate 2-15 by mouth ity of XL 25 mg 24 08:16: [place]. [place] hr tablet 28 [place] carvedilol 2020-06 Yes 3.125mg Take 3.125 Univers 3.125 mg 2-15 mg by ity of tablet 08:16: mouth 2 [place] [address] (two) Medical times Mouthcard daily with meals. metoprolol 2020-06 Yes 25mg Take 25 mg U nivers succinate 2-15 by mouth ity of XL 25 mg 24 08:16: [place]. [place] hr tablet 28 [place] Branch carvedilol 2020-06 Yes 3.125mg Take 3.125 Univers 3.125 mg 2-15 mg by ity of tablet 08:16: mouth 2 [place] [address] (two) Medical times Mouthcard daily with meals. metoprolol 2020-06 Yes 25mg Take 25 mg U nivers succinate 2-15 by mouth ity of XL 25 mg 24 08:16: [place]. [place] hr tablet 28 [place] Branch ibuprofen/d 2020-06- No Take by Un cody iphenhydram -20 11-20 mouth. ity o f ine cit 14:01: 00:00 [place] (ADVIL PM 08 :00 Medical ORAL) Branch mupirocin 2 2020-06 Yes [id number] 1g Use 1 g in Univers % nasal 1-20 9107 each ity of ointment 00:00: nostril [place] 00 every 12 Medical (twelve) Branch hours. Insulin 2020-06 Yes [id number] 20U inject 20 Univers Glargine 1-20 9107 Units ity of (LANTUS 00:00: under the [place] SOLOSTAR 00 skin at Medical U-100 bedtime. Branch INSULIN) 100 unit/mL (3 mL) injection mupirocin 2 2020-06 Yes [id number] 1g Use 1 g in Univers % nasal 1-20 9107 each ity of ointment 00:00: nostril [place] 00 every 12 Medical (twelve) Branch hours. Insulin 2020-06 Yes [id number] 20U inject 20 Univers Glargine 1-20 9107 Units ity of (LANTUS 00:00: under the [place] SOLOSTCT 00 skin at Medical U-100 bedtime. Branch INSULIN) 100 unit/mL (3 mL) injection mupirocin 2 2020-06 Yes [id number] 1g Use 1 g in Univers % nasal 1-20 9107 each ity of ointment 00:00: nostril [place] 00 every 12 Medical (twelve) Branch hours. Insulin 2020-06 Yes [id number] 20U inject 20 Univers Glargine 1-20 9107 Units ity of (LANTUS 00:00: under the [place] SOLOSTCT 00 skin at Medical U-100 bedtime. Branch INSULIN) 100 unit/mL (3 mL) injection Diabetic Yes [id number] Use as Un cody Supplies, 1-04 directed ity of Miscellan. 00:00: [place] Kit 00 Medical Branch Diabetic 0 Yes [id number] Use as Un cody Supplies, 1-04 directed ity of Miscellan. 00:00: [place] Kit 00 Medical Branch Diabetic 0 Yes [id number] Use as Un cody Supplies, 1-04 directed ity of Miscellan. 00:00: [place] Kit 00 Medical Branch traMADOL 50 2018-0 Yes [id number] 50mg Take 1 Univers mg tablet 3-05 tablet by ity o f 00:00: mouth [place] 00 every 6 Medical (six) Branch hours as needed for Pain (scale 4-6) for up to 45 doses. traMADOL 50 Yes [id number] 50mg Take 1 Univers mg tablet 3-05 tablet by ity o f 00:00: mouth [place] 00 every 6 Medical (six) Branch hours as needed for Pain (scale 4-6) for up to 45 doses. traMADOL 50 Yes [id number] 50mg Take 1 Univers mg tablet 3-05 tablet by ity o f 00:00: mouth [place] 00 every 6 Medical (six) Branch hours as needed for Pain (scale 4-6) for up to 45 doses. metformin 2019- No Take by Univ ers HCl 08-18 mouth. ity of (METFORMIN 18:21: 00:00 [place] ORAL) 51 :00 Medical Branch HYDROcodone Yes [id number] 1{tbl} Take 1 Univers -acetaminop 1-24 tablet by ity of hen 10-325 00:00: mouth [place] mg tablet 00 every 4 Medical (four) Branch hours as needed for Pain (scale 4-6) or Pain (scale 7-10). HYDROcodone Yes [id number] 1{tbl} Take 1 Univers -acetaminop 1-24 tablet by ity of hen 10-325 00:00: mouth [place] mg tablet 00 every 4 Medical (four) Branch hours as needed for Pain (scale 4-6) or Pain (scale 7-10). HYDROcodone Yes [id number] 1{tbl} Take 1 Univers -acetaminop 1-24 tablet by ity of hen 10-325 00:00: mouth [place] mg tablet 00 every 4 Medical (four) Branch hours as needed for Pain (scale 4-6) or Pain (scale 7-10). HYDROcodone Yes [id number] 1{tbl} Take 1 Univers -acetaminop 1-24 tablet by ity of hen 10-325 00:00: mouth [place] mg tablet 00 every 4 Medical (four) Branch hours as needed for Pain (scale 4-6) or Pain (scale 7-10). traMADOL 50 2019- No [id number] 50mg Take 1 Univers mg tablet 07-15 tablet by ity of 00:00: 00:00 mouth [place] 00 :00 every 6 Medical (six) Branch hours as needed for Pain (scale 4-6). enoxaparin 2019- No [id number] 30mg inject 0.3 Univers 30 mg/0.3 24 02-18 mL under ity o f mL [...] tablet 00:00: [place] 00 Medical Branch metFORMIN 2018- Yes TK 1 T PO Uni vers 1,000 mg 2-04 BID ity of tablet 00:00: [place] 00 Medical Branch metFORMIN 2018- Yes TK 1 T PO Uni vers 1,000 mg 2-04 BID ity of tablet 00:00: [place] 00 Medical Branch lisinopril 2017- 2019- No TK 1 T PO U nivers 10 mg 06-23 03- QD ity of tablet 00:00: 00:00 [place] 00 :00 Medical Branch glipiZIDE 5 2020- No TK 1 T PO Univers mg tablet 03-01 BID ity of 00:00: 00:00 [place] 00 :00 Medical Branch amLODIPine 2019- No TK 1 T PO U nivers 5 mg tablet 01-14 D ity of 00:00: 00:00 [place] 00 :00 Medical Branch carvedilol 2019- No TK 1 T PO U nivers 3.125 mg 01-14 BID AT 6AM ity of tablet 00:00: 00:00 AND AT 6PM [place] 00 :[address] [facility] Immunizations Ordered Filled Immunization Date Status Comments [facility] e Immunization Name Name Pneumococcal 2021-06-05 Completed [place] o f Polysaccharide, 00:00:00 [place] Med ical PPSV23 (PNEUMOVAX) Branch Pneumococcal 2021-06-05 Completed [place] f Polysaccharide, 00:00:00 [place] Med ical PPSV23 (PNEUMOVAX) Branch Pneumococcal 2021-06-05 Completed [place] f Polysaccharide, 00:00:00 [place] Med ical PPSV23 (PNEUMOVAX) Branch Td 2020-06-16 Completed University of 00:00:00 [facility] [place] [facility] Td 2020-06-16 Completed University of 00:00:00 [facility] [place] [facility] Td 2020-06-16 Completed University of 00:00:00 [facility] [place] [facility] Vital Signs Vital Name Observation Time Observation Value Comments Source Body temperature 2021-09-19 21:47:00 36.83 [facility] Body height 2021-09-19 21:47:00 170.2 cm [facility] Body weight 2021-09-19 21:47:00 92.987 kg [facility] BMI 2021-09-19 21:47:00 32.11 kg/m2 [facility] Medical Mouthcard Procedures Procedure Date / Time Performing Clinician Source Performed DME/SUPPLY JUSTIFICATION 2021-09-19 05:01:00 Doctor Unasscarrillo, No [facility] Encounters Start End Encounter Admission Attending Care Care Encounter Source Date/Time Date/Time Type Type Clinicians Facility Department ID 2021-09-19 2021-09-19 [id number] [facility] 16:30:00 16:40:00 Visit Randy PRIMARY [id number] it y of [place] 4[place].2.[place] [facility] [id number] [place] 198 Branch 2021-09-19 2021-09-19 Orders Doctor DENNYS [id number] Univers 00:00:00 00:00:00 Only Unassigned, ABEL [id number] ity of [place] [facility] 4.2.7.2.686 Tae as [id number] [facility] 009 Branch 2018-08-03 2018-08-03 [facility] [id number] Univers 00:00:00 00:00:00 Management Selvin Braxton PRIMARY [id number] it[place] of C[place]2.[place] [facility] [id number] [facility] 198 Mouthcard Results Test Description Test Time Test Comments [...] code = LDLC) 148 mg/dL 0-100 H [id number] 07:29:00 Test Item Value Reference Range Interpretation Comments VANCOMYCIN (test code = VANCO) 12.1 ug/mL 5.0-40.0 N C REACTIVE [id number] 07:29:00 Test Item Value Reference Range Interpretation Comments C REACTIVE PROTEIN (test code = 13.20 mg/dL 0.00-0.33 H CRP) - XR TIBIA/FIBULA 2 V [id number] 22:38:00Patient Name: ANITA SHORT Unit No: [id number] EXAMS: CPT CODE: [id number] XR TIBIA/FIBUL[place] 2 [place] [address] Location code: A 1 Left tibia and [...] m2): Air Kerma (mGy): Trscr Dt/Tm: 03/22/2019 (223) by:[email or web address] [employer] Signature Date/Time: 03/22/2019 (223)Orig Print D/T: S: 03/22/2019 (2241) Name: VIKKI SHORT [facility] Shailesh Phys: Tiff Bonds [address] : 1960 Age: 59 [place]: [place] [id number] Loc: CT.ERS Exam Date: 03/22/2019 Status: PRE ER PH: FAX: PAGE 1 Signed Report- XR ANKLE 2 VIEWS [id number] 22:35:00Patient Name: ANITA SHORT Unit No: [id number] EXAMS: CPT CODE: [id number] XR [place]KLE [address] [place] [address] Location code: A 1 Left ankle 2 [...] Signedby Romie Flores MD on 03/22/2019 at 223 Reported and signed by: Romie Flores MD CC: Tiff(ED) Jose C Technologist: Luciana Munson Time: DAP (Gy m2): Air Kerma (mGy): Trscr Dt/Tm: 03/22/2019 (2234) by:[email or web address] Electronic Signature Date/Time: 03/22/2019 (2234)Orig Print D/T: S: 03/22/2019 (2238) Name: ANITA SHORT [facility] Phys: Tiff Singer [address] : 1960 Age: 59 Sex: [place] [id number] Loc: CT.ERS Exam Date: 03/22/2019 Status: PRE ER PH: FAX: PAGE 1 Signed ReportBASIC METABOLIC [id number] 21:29:00 Test Item Value Reference Range Interpretation [...] mg/dL 8.5-10.1 N = CA) LIVER FUNCTION [id number] 21:29:00 Test Item Value Reference Range Interpretation [...] 45-117 H ALKP) - XR CHEST 2 [id number] 21:25:00Patient Name: ANITA SHORT Unit No: [id number] EXAMS: CPT CODE: [id number] XR CHEST 2 V [address]246 Dictationlocation: H37. CHEST, FRONTAL AND LATERAL VIEWS [...] (2124) by:[email or web address] Electronic Signature Date/Time: 03/22/2019 (2124)Orig PrintD/T: S: 03/22/2019 (2127) Name: ANITA SHORT [facility] Shailesh Phys: [place] [address] : 1960 Age: 59 Sex: [place] [id number] Loc: CT.ERS Exam Date: 03/22/2019 Status: PRE ER PH: FAX: PAGE 1 Signed ReportCBC W/AUTO [id number] 20:56:00 Test Item Value Reference Range Interpretation [...]
[2022-02-08 23:04] LABS: Hematocrit 30.8 % (39.6-49.0); Lymphocytes % 11.5 % (15.3-44.8); MCV 76.3 fL (80-100); MPV 8.5 fL (7.6-11.3); RBC Red Blood Cell Count 4.03 M/uL (4.33-5.43)
[2022-02-08] MEDS ORDERED: FUROSEMIDE 40 MG/4 ML VIAL ONE (23:08)
[2022-02-08] MEDS ORDERED: ALBUTEROL 2.5 MG/3 ML NEB SOL ONE (23:08)
[2022-02-08] MEDS ORDERED: IPRATROPIUM BROM 0.5MG/2.5ML ONE (23:08)
[2022-02-08 23:35] LABS: Troponin High Sensitivity 33.6 pg/mL (<58.9)
[2022-02-08 23:38] LABS: Potassium 5.6 mmol/L (3.5-5.1)
[2022-02-08 23:57] LABS: SARS-CoV-2 Antigen Rapid Res Negative (Negative)
[2022-02-09 00:34] LABS: Anisocytosis 1+; Blood Morphology Comment NOTED (NOT SEEN); Platelet Estimate ADEQ; Polychromasia 1+; White Blood Cell Scan OK (OK)
--- NOTE | 2022-02-09 00:42 | ER ---
Nurse's Notes [facility] Name: Vitaliy Cross Age: 61 yrs Sex: Male : 1960 Arrival Date: 02/08/2022 Time: 22:30 Bed Treatment Private MD: Diagnosis: Acute on chronic combined systolic (congestive) and diastolic (congestive) heart failure Presentation: 02/08 22:39 Chief complaint: SOB and chest tightness today. Recently inpatient for CHF hb exacerbation. Coronavirus screen: At this time, the client does not indicate any symptoms associated with coronavirus-19. Ebola Screen: No symptoms or risks identified at this time. Initial Sepsis Screen: Does the patient meet any 2 criteria? No. Patient's initial sepsis screen is negative. Does the patient have a suspected source of infection? No. Patient's initial sepsis screen is negative. Risk Assessment: Do you want to hurt yourself or someone else? Patient reports no desire to harm self or others. Onset of symptoms was February 08, 2022. 22:39 Method Of Arrival: Wheelchair hb 22:39 Acuity: LEVY 3 hb Historical: - Allergies: 22:41 No Known Allergies; hb - Home Meds: 22:41 amlodipine 5 mg oral tab [Active]; carvedilol 12.5 mg Oral tab 1 tab 2 times per day hb [Active]; Glipizide Oral [Active]; indomethacin 50 mg Oral cap 1 cap 2 times per day [Active]; metformin 500 mg/5 mL Oral serr [Active]; - PMHx: 22:41 Diabetes - NIDDM; Hypertension; hb - PSHx: 22:41 ankle and knee sx; hb - Immunization history:: Adult Immunizations up to date. - Social history:: Smoking status: Patient denies any tobacco usage or history of. Screenin:00 Abuse screen: Denies threats or abuse. Denies injuries from another. Nutritional kb3 screening: No deficits noted. Tuberculosis screening: No symptoms or risk factors identified. Fall Risk None identified. Assessment: 23:00 Reassessment: No changes from previously documented assessment. General: Appears in no kb3 apparent distress. uncomfortable, obese, unkempt, Behavior is calm, cooperative, Received +care of pt from lobby. Pt is AAO x4, states ongoing chest pressure and tightness, bilateral leg swelling and increasing SOB since hospital discharge for recent CHF exacerbation. Pt reports he has been taking "a double dose of lasix twice daily" as he was instructed at discharge and has been voiding more than normal. 23:00 Pain: Complains of pain in anterior aspect of right upper chest, anterior aspect of kb3 left upper chest and mid-sternal area Pain does not radiate. Pain currently is 5 out of 10 on a pain scale. Quality of pain is described as heavy, pressure, Pain began Since recent hospital discharge approximately 1 week ago. Cardiovascular: Reports chest pain, fatigue, shortness of breath, Bilateral lower extremity swelling Rhythm is sinus rhythm. Respiratory: Reports shortness of breath at rest labored breathing the patient has mild shortness of breath. 23:40 General: K 5.6, Deonte BALBUENA notified. kb3 02/09 00:52 General: Reports "I am feeling better and I am ready to get the hell out of here.". tw5 Vital Signs: 02/08 22:39 BP 115 / 73; Pulse 91; Resp 24; Temp 98.7; Pulse Ox 100% on R/A; Weight 94.8 kg; Height hb 5 ft. 7 in. (170.18 cm); Pain 6/10; 22:39 Body Mass Index 32.73 (94.80 kg, 170.18 cm) hb Vitals: 23:00 Cardiac Rhythm Assessment Regular Sinus rhythm. kb3 ED Course: 22:30 Patient arrived in ED. bp1 22:41 Triage completed. hb 22:41 Arm band placed on. hb 22:45 Yary Argueta, MELVIN is Primary Nurse. kb3 22:47 Deonte Botello PA is PHCP. [facility] 22:47 Ben Niño MD is Attending Physician. [facility] 22:53 Initial lab(s) drawn, by mi, sent to lab. Inserted saline lock: 20 gauge in right tw5 antecubital area, using aseptic technique. Blood collected. 23:00 Patient has correct armband on for positive identification. Placed in gown. Bed in low kb3 position. Call light in reach. Side rails up X2. Client placed on continuous cardiac and pulse oximetry monitoring. NIBP monitoring applied. 23:00 No provider procedures requiring assistance completed. Patient maintains SpO2 kb3 saturation greater than 95% on room air. 23:09 Basic Metabolic Panel Sent. tw5 23:09 Troponin HS Sent. tw5 23:15 XRAY Chest (1 view) In Process Unspecified. EDMS 02/09 00:52 IV discontinued, intact, bleeding controlled, No redness/swelling at site. Pressure tw5 dressing applied. Administered Medications: 02/08 23:09 Drug: Lasix (furosemide) 40 mg Route: IVP; Site: right antecubital; tw5 23:56 Follow up: Response: No adverse reaction kb3 23:09 Drug: Albuterol - atroVENT (ipratropium) (3:1) (2.5 mg - 0.5 mg) 3 ml Route: Nebulizer; tw5 23:55 Follow up: Response: No adverse reaction kb3 Medication: 23:00 VIS not applicable for this client. kb3 Outcome: 02/09 00:42 Discharge ordered by . [facility] 00:52 Discharged to home via wheelchair, with family. tw5 00:52 Condition: stable 00:52 Discharge instructions given to patient, Instructed on discharge instructions, follow up and referral plans. Demonstrated understanding of instructions, follow-up care, medications, Prescriptions given X 1. 00:53 Patient left the ED. tw5 Signatures: Dispatcher [employer] EDMS Deonte Botello PA PA [facility] Halle Cardona, MELVIN RN Yokasta Patterson Tiffany tw5 Yary Argueta, MELVIN RN kb3 Corrections: (The following items were deleted from the chart) 02/08 22:41 22:38 Chief complaint: hb hb
--- NOTE | 2022-02-09 00:42 | EDPHYS ---
Physician Documentation [facility] Name: Vitaliy Cross Age: 61 yrs Sex: Male : 1960 Arrival Date: 02/08/2022 Time: 22:30 Bed Treatment Private MD: ED Physician Ben Niño HPI: 02/08 22:53 This 61 yrs old Male presents to ER via Wheelchair with complaints of Breathing jmm Difficulty. 22:53 The patient has shortness of breath at rest. Onset: The symptoms/episode began/occurred jmm today. Duration: The symptoms are continuous. The patient's shortness of breath has no apparent modifying factors. Associated signs and symptoms: Pertinent positives: non-productive cough, Pertinent negatives: chest pain. The patient has experienced similar episodes in the past. Historical: - Allergies: 22:41 No Known Allergies; hb - Home Meds: 22:41 amlodipine 5 mg oral tab [Active]; carvedilol 12.5 mg Oral tab 1 tab 2 times per day hb [Active]; Glipizide Oral [Active]; indomethacin 50 mg Oral cap 1 cap 2 times per day [Active]; metformin 500 mg/5 mL Oral serr [Active]; - PMHx: 22:41 Diabetes - NIDDM; Hypertension; hb - PSHx: 22:41 ankle and knee sx; hb - Immunization history:: Adult Immunizations up to date. - Social history:: Smoking status: Patient denies any tobacco usage or history of. ROS: 22:53 Constitutional: Negative for fever, chills, and weight loss, Cardiovascular: Negative jmm for chest pain, palpitations, and edema. 22:53 Respiratory: Positive for shortness of breath. 22:53 All other systems are negative. Exam: 22:53 Constitutional: This is a well developed, well nourished patient who is awake, alert, jmm and in no acute distress. Head/Face: atraumatic. Eyes: EOMI, no conjunctival erythema appreciated ENT: Moist Mucus Membranes Neck: Trachea midline, Supple Chest/axilla: Normal chest wall appearance and motion. Cardiovascular: Regular rate and rhythm. No edema appreciated Abdomen/GI: Non distended Back: Normal ROM Skin: General appearance color normal MS/ Extremity: Moves all extremities, no obvious deformities appreciated, no edema noted to the lower extremities Neuro: Awake and alert Psych: Behavior is normal, Mood is normal, Patient is cooperative and pleasant 22:53 Respiratory: mild respiratory distress is noted, Respirations: normal, Breath sounds: rales, that are mild, are scattered. Vital Signs: 22:39 BP 115 / 73; Pulse 91; Resp 24; Temp 98.7; Pulse Ox 100% on R/A; Weight 94.8 kg; Height hb 5 ft. 7 in. (170.18 cm); Pain 6/10; 22:39 Body Mass Index 32.73 (94.80 kg, 170.18 cm) hb MDM: 22:53 Patient medically screened. [facility] 02/09 00:41 Data reviewed: vital signs, nurses notes. Refusal of service: The patient/guardian [facility] displays adequate decision making capability and despite a detailed discussion of alternatives, benefits, risks, and consequences refuses: Admission to the hospital for further work-up and treatment. 02/08 22:54 Order name: Basic Metabolic Panel; Complete Time: 00:02 [facility] 02/08 22:54 Order name: CBC with Diff; Complete Time: 00:39 [facility] 02/08 22:54 Order name: Troponin HS; Complete Time: 00:02 [facility] 02/08 22:54 Order name: XRAY Chest (1 view) [facility] 02/08 22:56 Order name: SARS RAPID; Complete Time: 00:02 [facility] 02/08 23:10 Order name: CBC Smear Scan; Complete Time: 00:39 [facility] 02/08 22:54 Order name: EKG; Complete Time: 22:55 [facility] 02/08 22:54 Order name: Cardiac monitoring; Complete Time: 23:04 [facility] 02/08 22:54 Order name: EKG - Nurse/Tech; Complete Time: 23:04 [facility] 02/08 22:54 Order name: IV Saline Lock; Complete Time: 23:04 [facility] 02/08 22:54 Order name: Labs collected and sent; Complete Time: 23:09 [facility] 02/08 22:54 Order name: O2 Per Protocol; Complete Time: 23:04 [facility] 02/08 22:54 Order name: O2 Sat Monitoring; Complete Time: 23:04 tw Administered Medications: 02/08 23:09 Drug: Lasix (furosemide) 40 mg Route: IVP; Site: right antecubital; tw5 23:56 Follow up: Response: No adverse reaction kb3 23:09 Drug: Albuterol - atroVENT (ipratropium) (3:1) (2.5 mg - 0.5 mg) 3 ml Route: Nebulizer; tw5 23:55 Follow up: Response: No adverse reaction kb3 Disposition: 02/09 02:36 Co-signature as Attending Physician, Ben Niño MD I agree with the assessment and kdr plan of care. Disposition Summary: 02/09/22 00:42 Discharge Ordered Location: Home [facility] Condition: Stable [facility] Diagnosis - Acute on chronic combined systolic (congestive) and diastolic (congestive) heart [facility] failure Followup: [facility] - With: Private Physician - When: 2 - 3 days - Reason: Recheck today's complaints, Continuance of care, Re-evaluation by your physician Discharge Instructions: - Discharge Summary Sheet [facility] - Heart Failure Action Plan jm - Heart Failure Exacerbation [facility] Forms: - Medication Reconciliation Form [facility] - Thank You Letter [facility] - Antibiotic Education [facility] - Prescription Opioid Use [facility] Prescriptions: - albuterol sulfate 90 mcg/actuation Inhalation HFA aerosol inhaler - inhale 2 puff by INHALATION route every 6 hours; 1 Pump; Refills: 0, Product [facility] Selection Permitted Signatures: Dispatcher [employer] Ben Flannery MD MD kdr Mickail, Joel, PA PA m Halle Cardona, RN RN Vivian Arroyo tw5 Yary Argueta RN kb3
[2022-02-09 05:03] VITALS: O2SAT 100
[2022-02-09 05:38] VITALS: BP 113/87; TEMP 98.1
--- NOTE | 2022-02-10 08:10 | EKG ---
Test Date: 2022-02-08 Test Time: 22:56:31 [employer] Former: IMELDA MEASUREMENT RESULTS: Intervals: Rate: 86 MT: 148 QRSD: 132 QT: 398 QTc: 476 [place]: P: 57 MT: 148 QRS: -7 T: -37 INTERPRETIVE STATEMENTS: Normal sinus rhythm Right bundle branch block Abnormal ECG Compared to ECG 01/27/2022 13:02:21 Atrial premature complex(es) no longer present T-wave abnormality no longer present Possible ischemia no longer present Electronically Signed On 02-10-22 08:06:39 CDT by Matias Shafer
--- NOTE | 2022-02-10 11:00 | RAD REPORT ---
EXAM DESCRIPTION: RAD - Chest Single View - 02/08/2022 11:14 pm CLINICAL HISTORY: 1 years Male, CHEST PAIN COMPARISON: Chest radiograph dated 01/27/2022 IMPRESSION: No focal lung consolidation. No pleural effusion. No pneumothorax. Cardiomediastinal silhouette is enlarged. No acute osseous abnormality. Electronically signed by: Baudilio Lara DO 02/08/2022 11:32 PM CDT Due to temporary technical issues with the PACS/Fluency reporting system, reports are being signed by the in house radiologists without review as a courtesy to insure prompt reporting. The interpreting radiologist is fully responsible for the content of the report.
== END 2022-02-09 00:53 | disposition home or self-care (01) ==
LOC: ER 22:27
DX: I50.43 Acute on chronic combined systolic (congestive) and diastolic (congestive) heart failure (principal); I10 Essential (primary) hypertension; E11.9 Type 2 diabetes mellitus without complications; Z20.822 Contact with and (suspected) exposure to COVID-19
CPT/HCPCS: 93005; 85025; 80048; 36415; 84484; 71045; 94640; 96374; 99285; 87811; J1940

== ENCOUNTER 2025-02-03 08:15 | Observation (INO) | payer MEDICARE ==
[2025-02-03 08:35] LABS: Absolute Lymphocytes (CBC) 1.0 K/uL (0.7-4.9); Hematocrit 44.2 % (39.6-49.0); Hemoglobin 15.0 g/dL (13.6-17.9); MCH 27.0 pg (27.0-35.0); MCHC 33.9 g/dL (32.0-36.0); MCV 79.7 fL (80-100); MPV 8.9 fL (7.6-11.3); Nucleated RBC Absolute Count 0.1 (0-0); Nucleated Red Blood Cells % 0.7 % (0-0); RBC Red Blood Cell Count 5.55 M/uL (4.33-5.43); White Blood Count 7.40 thou/uL (4.3-10.9)
[2025-02-03] MEDS ORDERED: ONDANSETRON 4 MG/2 ML VIAL ONE (08:42)
[2025-02-03] MEDS ORDERED: FUROSEMIDE 40 MG/4 ML VIAL ONE (08:42)
[2025-02-03] MEDS ORDERED: NA CHLORIDE 0.9% 500 ML ONE ×2 (08:43→09:43)
[2025-02-03] MEDS ORDERED: MORPHINE 4 MG/ML SYR ONE ×2 (08:43→09:44)
[2025-02-03 08:59] LABS: Anion Gap 11.2 mEq/L (5.0-15.0); BUN Blood Urea Nitrogen 27.0 mg/dL (7-18); Potassium 4.2 mEq/L (3.5-5.1); Troponin High Sensitivity 22.5 pg/mL (<58.9)
[2025-02-03 09:03] LABS: Glucose Level 405.0 mg/dL (74-106)
[2025-02-03] MEDS ORDERED: METFORMIN HCL 500 MG TAB ONE (09:15)
[2025-02-03] MEDS ORDERED: POTASSIUM CL SA 10 MEQ TAB PO ONE (09:15)
[2025-02-03] MEDS ORDERED: INSULIN REGULAR (HUMAN) 100 UNIT/ML ONE (09:17)
--- NOTE | 2025-02-03 09:17 | RAD REPORT ---
EXAM: Chest Single View HISTORY: 64 years Male CHEST PAIN COMPARISON: 02/08/22 FINDINGS: LUNGS/PLEURA: The lungs are clear. No pleural effusions or pneumothorax. No pulmonary edema. CARDIAC/MEDIASTINUM: The cardiac silhouette is within normal limits. UPPER ABDOMEN: No significant abnormality. BONES: No acute abnormality. Remote right-sided rib fractures. LINES/TUBES/OTHER: N/A IMPRESSION: No evidence of acute cardiopulmonary disease.
[2025-02-03] MEDS ORDERED: PROMETHAZINE INJ 25 MG/ML AMP ONE (09:43)
--- NOTE | 2025-02-03 10:52 | EDPHYS ---
Physician Documentation [facility] Name: Vitaliy Cross Age: 64 yrs Sex: Male : 1960 Arrival Date: 02/03/2025 Time: 08: Bed 7 Private MD: ED Physician Stephen Ron HPI: 02/03 08:29 This 64 yrs old Male presents to ER via Unassigned with complaints of Chest dr5 Pain. 10:31 Onset: The symptoms/episode began/occurred yesterday. Patient is a 64-year-old male dr5 with history of diabetes, hypertension, [place], congestive heart failure coming in with chest pain radiating into right side that started at 9:00 last night. Patient states that he has not taken his Lasix, metformin, insulin, due to running out of medication.. Historical: - Allergies: 08:25 No Known Allergies; aa5 - PMHx: 08:25 Diabetes - NIDDM; Hypertension; Myocardial infarction; aa5 - PSHx: 08:25 ankle and knee sx; Heart Stent; aa5 - Immunization history:: Adult Immunizations unknown. - Infectious Disease History:: Denies. - Social history:: Smoking status: Patient denies any tobacco usage or history of. ROS: 10:31 Constitutional: as per hpi dr5 Exam: 10:31 Constitutional: This is a well developed, well nourished patient who is awake, alert, dr5 and in no acute distress. Head/Face: Normocephalic, atraumatic. Eyes: Pupils equal round and reactive to light, extra-ocular motions intact. Lids and lashes normal. Conjunctiva and sclera are non-icteric and not injected. Cornea within normal limits. Periorbital areas with no swelling, redness, or edema. Neck: Trachea midline, no thyromegaly or masses palpated, and no cervical lymphadenopathy. Supple, full range of motion without nuchal rigidity, or vertebral point tenderness. No Meningismus. Chest/axilla: Normal chest wall appearance and motion. Nontender with no deformity. No lesions are appreciated. Cardiovascular: Regular rate and rhythm with a normal S1 and S2. Normal PMI, no JVD. No pulse deficits. Respiratory: Lungs have equal breath sounds bilaterally, clear to auscultation. No rales, rhonchi or wheezes noted. Mild increased work of breathing, no retractions or nasal flaring. Abdomen/GI: Soft, non-tender, non-distended Back: No spinal tenderness. No costovertebral tenderness. Full range of motion. Skin: Warm, dry with normal turgor. Normal color with no rashes, no lesions, and no evidence of cellulitis. MS/ Extremity: Pulses equal, no cyanosis. Neurovascular intact. Full, normal range of motion. Neuro: Awake and alert, GCS 15, oriented to person, place, time, and situation. Cranial nerves II-XII grossly intact. Motor strength 5/5 in all extremities. Sensory grossly intact. Cerebellar exam normal. Normal gait. Vital Signs: 08:25 BP 161 / 119; Pulse 90; Resp 20 S; Temp 98(TE); Pulse Ox 98% on R/A; Weight 95.25 kg aa5 (R); Height 5 ft. 7 in. (R); 09:00 BP 165 / 99; Pulse 74; Resp 20 S; Pulse Ox 100% on R/A; aa5 09:57 BP 158 / 90; Pulse 94; Resp 18 S; Pulse Ox 96% on R/A; aa5 12:00 BP 170 / 104; Pulse 82; Resp 16 S; Temp 98(TE); Pulse Ox 100% on R/A; aa5 08:25 Body Mass Index 32.89 (95.25 kg, 170.18 cm) aa5 MDM: 08:25 Medical Screening Exam initiated dr5 10:52 Differential diagnosis: viral Infection, bronchitis, pneumonia Congestive heart failure dr5 exacerbation, NSTEMI, pneumonia, DKA, hyperglycemia. Data reviewed: vital signs, nurses notes, lab test result(s), cardiac enzymes, troponin i, CBC, white blood cell count, hemoglobin, hematocrit, platelets, electrolytes, sodium, potassium, chloride, serum bicarbonate, BUN, creatinine, serum glucose, EKG, radiologic studies, plain films. Consideration of Admission/Observation Patient was admitted/placed on observation. Management of patient was discussed with the following: Hospitalist: Dr. Fritz. I considered the following discharge prescriptions or medication management in the emergency department I discussed and recommended Over The Counter medications, Medications were administered in the Emergency Department. See MAR. Care significantly affected by the following chronic conditions: Diabetes, Hypertension, [place]. Care significantly affected by the following Social Determinants of Health: Poor access to healthcare and/or lack of insurance, Poor access to transportation, Problems related to employment. Counseling: I had a detailed discussion with the patient and/or guardian regarding the historical points, exam findings, and any diagnostic results supporting the discharge/admit diagnosis, the presence of at least one elevated blood pressure reading (>120/80) during this emergency department visit, lab results, radiology results, the need for further work-up and treatment in the hospital. Medication response: Potassium, metformin, NS, promethazine, morphine. Response to treatment: the patient's symptoms have markedly improved after treatment. Special discussion: Based on the patient's history, exam, and Dx evaluation, there is no indication for emergent intervention or inpatient Tx. It is understood by the patient/guardian that if the Sx's persist or worsen they need to return immediately for re-evaluation. ED course: Will admit patient to hospital. Normal troponin. Lasix given that has improved symptoms.. 02/03 08:24 Order name: Basic Metabolic Panel; Complete Time: 09:05 [facility] 02/03 08:24 Order name: CBC with Diff; Complete Time: 08:45 [facility] 02/03 08:24 Order name: Troponin HS; Complete Time: 09:05 [facility] 02/03 08:27 Order name: glucometer results - FOR PT WITH NO ID em1 02/03 08:29 Order name: NT PRO-BNP; Complete Time: 09:02 [facility] 02/03 10:55 Order name: Glucose, Ancillary Testing; Complete Time: 10:55 [facility] 02/03 11:01 Order name: Lipid Profile [facility] 02/03 11:01 Order name: Lipid Profile; Complete Time: 12:46 [facility] 02/03 11:01 Order name: Troponin High Sensitivity [facility] 02/03 11:01 Order name: Troponin High Sensitivity; Complete Time: 12:46 [facility] 02/03 11:01 Order name: Troponin High Sensitivity [facility] 02/03 11:01 Order name: Troponin High Sensitivity [facility] 02/03 11:01 Order name: Hemoglobin A1c; Complete Time: 12:22 [facility] 02/03 08:24 Order name: XRAY Chest (1 view); Complete Time: 09:22 [facility] 02/03 11:01 Order name: Echo with Doppler [facility] 02/03 08:24 Order name: Cardiac monitoring; Complete Time: 08:24 [facility] 15 08:24 Order name: EKG - Nurse/Tech; Complete Time: 08:24 02/03 08:24 Order name: IV Saline Lock; Complete Time: 02/03 08:24 Order name: Labs collected and sent; Complete Time: :02/03 08:24 Order name: O2 Per Protocol; Complete Time: :24 02/03 08:24 Order name: O2 Sat Monitoring; Complete Time: EC:20 Rate is 72 beats/min. Rhythm is regular. QRS [place] is Normal. [place] interval is normal at dr5 178 msec. QRS interval is normal at 148 msec. QT interval is normal at 456 msec. Clinical impression: Abnormal EKG without significant change, No evidence of ischemia, and RBBB. Administered Medications: 08:54 Drug: Ondansetron IVP 4 mg IVP once; over 2 minutes Route: IVP; Site: right antecubital;aa5 09:05 Follow up: Response: No adverse reaction aa5 08:56 Drug: morphine IVP or IV 4 mg IVP once over 4 mins Route: IVP; Infused Over: 4 mins; aa5 Site: right antecubital; 09:05 Follow up: Response: No adverse reaction aa5 08:57 Drug: Furosemide IVP 40 mg IVP once; give over 2 minutes Route: IVP; Site: right aa antecubital; 09:05 Follow up: Response: No adverse reaction aa5 08:57 Drug: NS 0.9% IV 500 ml IV at bolus once; to be given as a bolus over 30 minutes Route: aa5 IV; Rate: bolus; Site: right antecubital; 09:27 Follow up: IV Status: Completed infusion; IV Intake: 500ml aa5 09:22 Drug: Insulin Regular Human IVP 5 units IVP once {Co-Signature: kb4 (Esther Parar RN).} aa5 Route: IVP; Site: right antecubital; 09:30 Follow up: Response: No adverse reaction aa5 09:58 Drug: promethazine 25 mg IV at per protocol once Route: IV; Rate: per protocol; Site: [facility] right antecubital; 10:14 Follow up: Response: No adverse reaction aa5 09:58 Drug: NS 0.9% IV 500 ml IV at bolus once; to be given as a bolus over 30 minutes Route: aa5 IV; Rate: bolus; Site: right antecubital; 10:28 Follow up: IV Status: Completed infusion; IV Intake: 500ml aa5 10:00 Drug: morphine IVP or IV 4 mg IVP once over 4 mins Route: IVP; Infused Over: 4 mins; aa5 Site: right antecubital; 10:14 Follow up: Response: No adverse reaction; Pain is decreased aa5 10:13 Drug: Potassium Chloride PO 40 mEq PO once Route: PO; aa5 10:14 Follow up: Response: No adverse reaction aa5 10:13 Drug: metFORMIN PO 500 mg PO once; with meal or snack Route: PO; aa5 10:14 Follow up: Response: No adverse reaction aa5 Disposition Summary: 02/03/25 10:52 Hospitalization Ordered Notes: Hospitalization Status: Inpatient Admission dr5 Provider: [place] Fritz Location: Telemetry/MedSurg (Inpatient) dr5 Condition: Serious dr5 Problem: chronic dr5 Symptoms: have worsened dr5 Bed/Room Type: Standard dr5 Room Assignment: 215(02/03/25 12:04) eb Diagnosis - Hyperglycemia, unspecified dr5 - Chest pain on breathing dr5 - Shortness of breath dr5 Forms: - Medication Reconciliation Form dr5 - SBAR form dr5 - Leadership Thank You Letter dr5 Signatures: Dispatcher [employer] EDLatosha Vizcaino RN RN aa5 Terra Conde Dustin, CONCRETE SPREADER-C CONCRETE SPREADER-Cdr5 Esther Parra RN kb4 Corrections: (The following items were deleted from the chart) 08:24 08:24 BASIC METABOLIC PANEL+C.LAB.BRZ ordered. EDMS EDMS 08:24 08:24 CBC+H.LAB.BRZ ordered. EDMS EDMS 08:24 08:24 Troponin High Sensitivity+C.LAB.BRZ ordered. EDMS EDMS 08:24 08:24 Chest Single View+RAD.RAD.BRZ ordered. EDMS EDMS 08:29 08:29 PROBNP+C.LAB.BRZ ordered. EDMS EDMS 12:04 10:52 dr5 eb
--- NOTE | 2025-02-03 10:52 | ER ---
Nurse's Notes [facility] Name: Vitaliy Cross Age: 64 yrs Sex: Male : 1960 Arrival Date: 02/03/2025 Time: 08:15 Bed 7 Private MD: Diagnosis: Hyperglycemia, unspecified;Chest pain on breathing;Shortness of breath Presentation: 02/03 08:25 Chief complaint: Chief complaint: Patient states: chest pain that began last night aa5 around 2100. Pt is uncompliant with home medications. EMS reports initial BP was 170/106 and HR 92. 08:25 Acuity: LEVY 2 aa5 08:25 Coronavirus screen: At this time, the client does not indicate any symptoms associated aa5 with coronavirus-19. Ebola Screen: Patient denies travel to an Ebola-affected area in the 21 days before illness onset. Initial Sepsis Screen: Does the patient meet any 2 criteria? No. Patient's initial sepsis screen is negative. Does the patient have a suspected source of infection? No. Patient's initial sepsis screen is negative. Risk Assessment: Do you want to hurt yourself or someone else? Patient reports no desire to harm self or others. Onset of symptoms was February 03, 2025. 08:25 Method Of Arrival: EMS: [facility] aa5 08:25 Care prior to arrival: Glucose check: 462. aa5 Historical: - Allergies: 08:25 No Known Allergies; aa5 - PMHx: 08:25 Diabetes - NIDDM; Hypertension; Myocardial infarction; aa5 - PSHx: 08:25 ankle and knee sx; Heart Stent; aa5 - Immunization history:: Adult Immunizations unknown. - Infectious Disease History:: Denies. - Social history:: Smoking status: Patient denies any tobacco usage or history of. Screenin:25 [facility] ED Fall Risk Assessment (Adult) History of falling in the last 3 months, aa5 including since admission No falls in past 3 months (0 pts) Confusion or Disorientation No (0 pts) Intoxicated or Sedated No (0 pts) Impaired Gait Yes (1 pt) Mobility Assist Device Used Yes (1 pt) Altered Elimination No (0 pt) Score/Fall Risk Level 0 - 2 = Low Risk Oriented to surroundings, Maintained a safe environment, Educated pt \T\ family on fall prevention, incl call for assistance when getting out of bed, Assessed \T\ reinforced patient's understanding of fall precautions. Abuse screen: Denies threats or abuse. Nutritional screening: No deficits noted. Tuberculosis screening: No symptoms or risk factors identified. Assessment: 08:25 General: Appears uncomfortable, Behavior is calm, cooperative. Pain: Complains of pain aa5 in chest Pain does not radiate. Pain currently is 7 out of 10 on a pain scale. Quality of pain is described as aching, sharp, Pain began 1 day ago. Is intermittent. Neuro: Level of Consciousness is awake, alert, obeys commands, Oriented to person, place, time, situation. Cardiovascular: Heart tones S1 S2 present Rhythm is regular. Respiratory: Airway is patent Respiratory effort is even, unlabored, Respiratory pattern is regular, symmetrical, Breath sounds are clear bilaterally. GI: Abdomen is obese, Bowel sounds present X 4 quads. Abd is soft and non tender X 4 quads. Reports nausea, vomiting, since last night. : No signs and/or symptoms were reported regarding the genitourinary system. EENT: No signs and/or symptoms were reported regarding the EENT system. Derm: Skin is pink, warm \T\ dry. Redness noted to darien lower extremities, hot to the touch, and with multiple scabs noted. Musculoskeletal: No signs and/or symptoms reported regarding the musculoskeletal system. 09:00 Reassessment: Patient is alert, oriented x 3, equal unlabored respirations, skin aa5 warm/dry/pink. Patient states feeling better. Pain: Pain currently is 7 out of 10 on a pain scale. GI: Reports nausea. 09:30 Reassessment: Patient is alert, oriented x 3, equal unlabored respirations, skin aa5 warm/dry/pink. Pt still c/o nausea, PO meds on hold, provider notified of pt's c/o nausea and chest pain, 5/10. . Pain: Pain currently is 5 out of 10 on a pain scale. 10:14 Reassessment: Patient is alert, oriented x 3, equal unlabored respirations, skin aa5 warm/dry/pink. Patient states feeling better. Patient states symptoms have improved. 10:44 Reassessment: HR noted to be 140-148bpm on monitor, sinus tachycardia, checked on pt, aa5 pt was sitting up in bed using urinal, pt instructed to stay in bed. HR decreased to 80-90 bpm upon lying down in bed. Pt denied SOB during episode and currently denies any complaints, states feeling better. Provider was notified of elevated HR episode. . 11:00 Reassessment: Pt now resting in bed with eyes closed, respirations are even and aa5 unlabored. . 12:00 Reassessment: Patient is alert, oriented x 3, equal unlabored respirations, skin aa5 warm/dry/pink. Patient states feeling better. Patient states symptoms have improved. 12:40 Reassessment: Patient is alert, oriented x 3, equal unlabored respirations, skin aa5 warm/dry/pink. Patient states feeling better. Patient states symptoms have improved. Vital Signs: 08:25 BP 161 / 119; Pulse 90; Resp 20 S; Temp 98(TE); Pulse Ox 98% on R/A; Weight 95.25 kg aa5 (R); Height 5 ft. 7 in. (R); 09:00 BP 165 / 99; Pulse 74; Resp 20 S; Pulse Ox 100% on R/A; aa5 09:57 BP 158 / 90; Pulse 94; Resp 18 S; Pulse Ox 96% on R/A; aa5 12:00 BP 170 / 104; Pulse 82; Resp 16 S; Temp 98(TE); Pulse Ox 100% on R/A; aa5 08:25 Body Mass Index 32.89 (95.25 kg, 170.18 cm) aa5 ED Course: 08:23 Patient arrived in ED. aa5 08:23 Arm band placed on. aa5 08:23 Patient has correct armband on for positive identification. Placed in gown. Bed in low aa5 position. Call light in reach. Side rails up X2. Client placed on continuous cardiac and pulse oximetry monitoring. NIBP monitoring applied. surveillance system monitor on. Pulse ox on. NIBP on. 08:23 Initial lab(s) drawn, by me, sent to lab. Inserted saline lock: 18 gauge in right aa5 antecubital area, using aseptic technique. Blood collected. Flushed with 10 mL NS. 08:24 Lukasz Disla FNP-C [facility]. dr5 08:24 Stephen Ron MD is Attending Physician. dr5 08:30 Triage completed. aa5 08:57 Weaver, Latosha, RN is Primary Nurse. aa5 09:12 XRAY Chest (1 view) In Process Unspecified. EDMS 10:06 Patient maintains SpO2 saturation greater than 95% on room air. aa5 10:06 No provider procedures requiring assistance completed. aa5 10:51 Prince Fritz MD is Hospitalizing Provider. dr5 12:40 Patient admitted, IV remains in place. aa5 Administered Medications: 08:54 Drug: Ondansetron IVP 4 mg IVP once; over 2 minutes Route: IVP; Site: right antecubital;aa5 09:05 Follow up: Response: No adverse reaction aa5 08:56 Drug: morphine IVP or IV 4 mg IVP once over 4 mins Route: IVP; Infused Over: 4 mins; aa5 Site: right antecubital; 09:05 Follow up: Response: No adverse reaction aa5 08:57 Drug: Furosemide IVP 40 mg IVP once; give over 2 minutes Route: IVP; Site: right aa5 antecubital; 09:05 Follow up: Response: No adverse reaction aa5 08:57 Drug: NS 0.9% IV 500 ml IV at bolus once; to be given as a bolus over 30 minutes Route: aa5 IV; Rate: bolus; Site: right antecubital; 09:27 Follow up: IV Status: Completed infusion; IV Intake: 500ml aa5 09:22 Drug: Insulin Regular Human IVP 5 units IVP once {Co-Signature: kb4 (Esther Parra RN).} aa5 Route: IVP; Site: right antecubital; 09:30 Follow up: Response: No adverse reaction aa5 09:58 Drug: promethazine 25 mg IV at per protocol once Route: IV; Rate: per protocol; Site: aa right antecubital; 10:14 Follow up: Response: No adverse reaction aa5 09:58 Drug: NS 0.9% IV 500 ml IV at bolus once; to be given as a bolus over 30 minutes Route: aa5 IV; Rate: bolus; Site: right antecubital; 10:28 Follow up: IV Status: Completed infusion; IV Intake: 500ml aa5 10:00 Drug: morphine IVP or IV 4 mg IVP once over 4 mins Route: IVP; Infused Over: 4 mins; aa5 Site: right antecubital; 10:14 Follow up: Response: No adverse reaction; Pain is decreased aa5 10:13 Drug: Potassium Chloride PO 40 mEq PO once Route: PO; aa5 10:14 Follow up: Response: No adverse reaction aa5 10:13 Drug: metFORMIN PO 500 mg PO once; with meal or snack Route: PO; aa5 10:14 Follow up: Response: No adverse reaction aa5 Medication: 10:05 VIS not applicable for this client. aa5 Intake: 09:27 IV: 500ml; Total: 500ml. aa5 10:28 IV: 500ml; Total: 1000ml. aa5 Output: 09:15 Urine: 700ml (Voided); Total: 700ml. aa5 10:45 Urine: 800ml (Voided); Total: 1500ml. aa5 Outcome: 10:52 Decision to Hospitalize by Provider. dr5 12:40 Admitted to Tele accompanied by tech, via stretcher, with chart, aa5 12:40 Condition: stable 12:40 Instructed on the need for admit, Demonstrated understanding of instructions, 12:52 Patient left the ED. aa5 Signatures: Dispatcher [employer] EDMS Latosha Weaver RN RN aa5 Lukasz Disla, OPENING MACHINE CLEANER-C OPENING MACHINE CLEANER-Cdr5 Esther Parra RN kb4 Corrections: (The following items were deleted from the chart) 08:32 08:25 Chief complaint: aa5 aa5 08:32 08:25 Chief complaint: Patient states: chest pain that began last night around 2100. Pt aa5 is uncompliant with home medications. Chief complaint: Patient states: chest pain that began last night around 2100. Pt is uncompliant with home medications. aa5 08:33 08:25 BP 161 / 119; Pulse 90bpm; Resp 20bpm; Spontaneous; Pulse Ox 98% RA; Temp 98F aa5 Temporal; aa5 10:02 09:50 Pain: Pain currently is 5 out of 10 on a pain scale. aa5 aa5 10:02 09:50 Reassessment: Patient is alert, oriented x 3, equal unlabored respirations, skin aa5 warm/dry/pink. Pt still c/o nausea, PO meds on hold, provider notified of pt's c/o nausea and chest pain, 10/29. . aa5 10:03 09:30 Pain: Pain currently is 5 out of 10 on a pain scale. aa5 aa5 10:03 09:00 Pain: Pain currently is 5 out of 10 on a pain scale. aa5 aa5 13:08 08:25 [facility] ED Fall Risk Assessment (Adult) History of falling in the last 3 months, aa5 including since admission No falls in past 3 months (0 pts) Confusion or Disorientation No (0 pts) Intoxicated or Sedated No (0 pts) Impaired Gait No (0 pts) Mobility Assist Device Used No (0 pt) Altered Elimination No (0 pt) Score/Fall Risk Level 0 - 2 = Low Risk Oriented to surroundings, Maintained a safe environment, Educated pt \T\ family on fall prevention, incl call for assistance when getting out of bed, Assessed \T\ reinforced patient's understanding of fall precautions, aa5
[2025-02-03] MEDS ORDERED: NITROGLYCERIN 0.4 MG/TAB SL PRN (10:57)
--- NOTE | 2025-02-03 11:04 | P.HP ---
Certification for Inpatient Patient admitted to: Observation With expected LOS: <2 Midnights Practitioner: I am a practitioner with admitting privileges, knowledge of patient current condition, hospital course, and medical plan of care. Services: Services provided to patient in accordance with Admission requirements found in Title 42 Section 412.3 of the Code of Federal Regulations Patient History Date of Service: 02/03/25 Reason for admission: Chest pain History of Present Illness: Patient is a 64-year-old male with known history of type II diabetes mellitus and hypertension. He also has a history of chronic systolic CHF with a last EF of 31%. He presented to the ER complaining of chest pain. Patient is reporting pleuritic chest pain radiating to his right side. He admits he has been noncompliant with his medications including Lasix and insulin. His symptoms have been ongoing for the past 24 hours. Workup in the ER included a chest x- ray which was negative. His first troponin is negative as well. Patient is being admitted for ACS rule out. Allergies No Known Allergies Allergy (Unverified 01/27/22 22:11) Home Medications: Metformin HCl 1,000 mg PO BIDWM #60 tablet 12/11/17 glipiZIDE [Glucotrol] 5 mg PO BIDWM #60 tablet 12/11/17 Hydrocodone Bit/Acetaminophen [Hydrocodon-Acetaminophn 10-325] 1 tab PO BID PRN 10/18/20 Metoprolol Succinate 1 tab PO BEDTIME 10/18/20 Furosemide [Lasix] 40 mg PO BIDL #90 tab 01/31/22 Lidocaine 4% Patch [Lidoderm 5% Patch*] 2 patch TOP DAILY #30 patch 01/31/22 Melatonin 5 mg PO BEDTIME PRN PRN #30 tab 01/31/22 Spironolactone [Aldactone*] 25 mg PO DAILY #30 tab 01/31/22 lisinopriL [Prinivil*] 5 mg PO DAILY #30 tab 01/31/22 - Past Medical/Surgical History Diabetic: Yes -: NIDDM2 -: HTN -: Obesity -: History of partial right thumb amputation, secondary to MRSA -: Former tobacco use -: Alcohol use -: Left Charcot arthropathy -: Partial thumb amputation -: Right knee replacement -: Lt ankle surgery 2018 Psychosocial/ Personal History: He is single. No children. 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 - Family History Father -: Heart disease, Hypertension - Social History Alcohol use: No CD- Drugs: No Caffeine use: Yes Physical Examination - Physical Exam General: Acute distress, Obese HEENT: Atraumatic, Normocephalic Respiratory: Clear to auscultation bilaterally, Normal air movement Cardiovascular: No edema, Normal pulses, Regular rate/rhythm, Normal S1 S2 Gastrointestinal: Soft and benign, Non-distended Neurological: Normal speech - Studies Laboratory Data (last 24 hrs) 02/03/25 02/03/25 08:27 08:27 WBC 7.40 Hgb 15.0 Hct 44.2 Plt Count 212 Sodium 132 L Potassium 4.2 BUN 27 H Creatinine 1.74 H Glucose 405 H* Assessment and Plan - Plan Assessment This is a 64-year-old male with a known history of hypertension, type 2 diabetes mellitus and chronic systolic CHF is being admitted for ACS rule out after he presented with chest pain. His chest x-ray, first troponin are negative. Chest painACS rule out Hypertension Type 2 diabetes mellitus with hyperglycemia Chronic systolic CHF Plan: Will admit under observation with telemetry Trend troponin Will obtain a 2D echo Cardiology consult Aspirin and atorvastatin Check check lipid panel and hemoglobin A1c Blood glucose and blood pressure control - Advance Directives Does patient have a Living Will: Yes Does patient have a Durable POA for Healthcare: No
[2025-02-03 12:46] LABS: HDL Cholesterol 52.0 mg/dL (40-60); LDL Cholesterol, Calculated 76.0 mg/dL (<130); LDL Cholesterol,Calc NonReport 76.0; Troponin High Sensitivity 25.7 pg/mL (<58.9)
[2025-02-03 13:21] VITALS: BMI 32.8
[2025-02-03] MEDS: HYDROMORPHONE HCL 1 MG/ML INJ IV PRN (13:43)
[2025-02-03] MEDS: ACETAMINOPHEN 325 MG TABLET ONE (14:00)
[2025-02-03] MEDS ORDERED: D10W 125 ML IV PRN (14:27)
[2025-02-03] MEDS ORDERED: GLUCAGON 1 MG/VIAL IM PRN (14:27)
[2025-02-03] MEDS ORDERED: HYDROCODONE/APAP 10/325 TAB PO PRN (14:28)
[2025-02-03] MEDS ORDERED: MELATONIN 5 MG TABLET PO PRN (14:28)
[2025-02-03] MEDS: HYDRALAZINE HCL 20 MG/ML VIAL IV PRN (14:38)
[2025-02-03] MEDS: INSULIN REGULAR (HUMAN) 100 UNIT/ML SQ SCH (14:38)
[2025-02-03] MEDS: METOPROLOL XL 25 MG TAB PO SCH (17:01)
[2025-02-03] MEDS: INSULIN GLARGINE 100 UNIT/ML SQ SCH (17:02)
[2025-02-03] MEDS ORDERED: METOPROLOL XL 25 MG TAB PO SCH (21:00)
[2025-02-03] MEDS ORDERED: INSULIN GLARGINE 100 UNIT/ML SQ SCH (21:00)
--- NOTE | 2025-02-03 21:01 | CON ---
Date of Consultation: 02/03/2025 Reason For Consultation: Chest pain. History Of Present Illness: A 64-year-old male with history of type 2 diabetes; coronary artery dise ase, status post PCI in the past; systolic heart failure with ejection fraction of 31%, presented to the emergency room with chest pain. He claimed that it is left sided and in the chart, it is right s ided. No radiation and chest pain was significant. At this moment, he is chest pain free and had 2 sets of cardiac enzymes that were negative and no further chest pain. Past Medical History: Diabetes, hypertension, coronary artery disease, obesity, peripheral vascular disease. Medications: Refer reconciliation sheet for detailed list. Allergies: NO KNOWN DRUG ALLERGIES. Family History: No premature coronary artery disease or cancer. Social History: Does not smoke or drink. Does not use any drugs. Review of Systems: All systems reviewed. They are negative except as mentioned in HPI. Physical Examination: Vital Signs: Reviewed. Head and Neck: Pupils are equal, reactive to light. Intact eye movements. No JVD. No cervical lym phadenopathy. Neck is supple. Thyroid is not enlarged. Lungs: Clear to auscultation bilaterally. No rhonchi, wheezing, or crackles. No accessory muscle u se. Heart: Regular rate and rhythm. No extra sounds. Abdomen: Soft, nontender. Bowel sounds positive. No organomegaly. No masses or hernia. No rigidi ty or rebound. Extremities: No edema, clubbing, or cyanosis. Intact pulses. Skin: No rash, no nodules. Neuro: Alert, awake, and oriented x3. No acute focal deficits appreciated. Lymph Nodes: No cervical or axillary lymphadenopathy. Investigations: Cardiac enzymes x2 are negative and BUN is 27, creatinine is 1.74. Assessment/recommendations: 1. Chest pain. It is atypical. Cardiac enzymes are negative. Trend 1 more set of cardiac enzymes. If it is negative, from Cardiology standpoint, patient can be released and to plan for cardiac cath stress test as an outpatient. 2. Coronary artery disease by history with chest pain. Plan as above. 3. Hyperglycemia, uncontrolled. Tight control of his diabetes is recommended. SR/MODL Voice ID: [id number] Report ID: [id number]
[2025-02-04 09:11] VITALS: O2SAT 98
[2025-02-04] MEDS: LIDOCAINE 4% PATCH TOP SCH (09:13)
[2025-02-04] MEDS: SPIRONOLACTONE 25 MG TABLET PO SCH (09:13)
[2025-02-04] MEDS: ASPIRIN EC 81 MG TAB PO SCH (09:13)
[2025-02-04] MEDS: ENOXAPARIN 40 MG/0.4 ML SQ SCH (09:13)
[2025-02-04] MEDS: INSULIN GLARGINE 100 UNIT/ML SQ SCH (11:43)
[2025-02-04 12:21] VITALS: BP 149/85; TEMP 98.2
--- NOTE | 2025-02-04 12:29 | P.DS ---
Admission Date: 02/03/25 Discharge Date: 02/04/25 Disposition: ROUTINE DISCHARGE Discharge Condition: GOOD Reason for Admission: Chest pain Brief History of Present Illness: Patient is a 64-year-old male with known history of type II diabetes mellitus and hypertension. He also has a history of chronic systolic CHF with a last EF of 31%. He presented to the ER complaining of chest pain. Patient is reporting pleuritic chest pain radiating to his right side. He admits he has been noncompliant with his medications including Lasix and insulin. His symptoms have been ongoing for the past 24 hours. Workup in the ER included a chest x- ray which was negative. His first troponin is negative as well. Patient is being admitted for ACS rule out. Hospital Course: Patient stating hospital for ACS rule out. ACS was ruled out with negative cardiac enzymes. He is not chest pain-free. He will need to follow-up outpatient with cardiology for nuclear stress test. Patient was also hyperglycemic with blood glucose in the 300 range. His A1c is 12.1. Patient has been noncompliant with his insulin due to lack of funding. Supposed to be on insulin Basaglar 45 units twice daily and has not had any for the past 2 weeks at least. hardboard factory worker was consulted for community resources. Patient was handed some discount card. He is medically cleared to be discharged today. Vital Signs/Physical Exam: Temp Pulse Resp BP Pulse Ox 98.2 F 111 H 17 149/85 H 98 02/04/25 12:00 02/04/25 12:00 02/04/25 12:00 02/04/25 12:00 02/04/25 12:00 General: In no apparent distress, Cooperative HEENT: Atraumatic, Normocephalic Respiratory: Clear to auscultation bilaterally, Normal air movement Cardiovascular: No edema, Normal pulses, Regular rate/rhythm, Normal S1 S2 Neurological: Normal speech Laboratory Data at Discharge: WBC 7.40 thou/uL (4.3-10.9) 02/03/25 08:27 Hgb 15.0 g/dL (13.6-17.9) 02/03/25 08:27 Hct 44.2 % (39.6-49.0) 02/03/25 08:27 Plt Count 212 thou/uL (152-406) 02/03/25 08:27 Sodium 132 mEq/L (136-145) L 02/03/25 08:27 Potassium 4.2 mEq/L (3.5-5.1) 02/03/25 08:27 BUN 27 mg/dL (7-18) H 02/03/25 08:27 Creatinine 1.74 mg/dL (0.70-1.30) H 02/03/25 08:27 Glucose 405 mg/dL (74-106) H* 02/03/25 08:27 Triglycerides 94 mg/dL (<150) 02/03/25 12:20 Cholesterol 147 mg/dL (<200) 02/03/25 12:20 HDL Cholesterol 52 mg/dL (40-60) 02/03/25 12:20 Cholesterol/HDL Ratio 2.83 02/03/25 12:20 Home Medications: Metformin HCl 1,000 mg PO BIDWM #60 tablet 12/11/17 glipiZIDE [Glucotrol] 5 mg PO BIDWM #60 tablet 12/11/17 Hydrocodone Bit/Acetaminophen [Hydrocodon-Acetaminophn 10-325] 1 tab PO BID PRN 10/18/20 Furosemide [Lasix*] 40 mg PO BIDL #90 tab 01/31/22 Lidocaine 4% Patch [Lidoderm 5% Patch*] 2 patch TOP DAILY #30 patch 01/31/22 Melatonin 5 mg PO BEDTIME PRN PRN #30 tab 01/31/22 Aspirin [Aspirin EC 81 MG] 81 mg PO DAILY #30 tab 02/04/25 Atorvastatin Calcium [Lipitor] 80 mg PO BEDTIME #30 tab 02/04/25 Insulin Glargine,Hum.rec.anlog [Semglee] 45 unit SQ BID #6 ml 02/04/25 Metoprolol Succinate 1 tab PO BEDTIME #30 tab 02/04/25 Spironolactone [Aldactone*] 25 mg PO DAILY #30 tab 02/04/25 lisinopriL [Prinivil*] 5 mg PO DAILY #30 tab 02/04/25 New Medications: Spironolactone [Aldactone*] 25 mg PO DAILY #30 tab Aspirin [Aspirin EC 81 MG] 81 mg PO DAILY #30 tab Atorvastatin Calcium [Lipitor] 80 mg PO BEDTIME #30 tab Metoprolol Succinate 1 tab PO BEDTIME #30 tab lisinopriL [Prinivil*] 5 mg PO DAILY #30 tab Insulin Glargine,Hum.rec.anlog [Semglee] 45 unit SQ BID #6 ml Followup: Alfredo Sy MD [ACTIVE - CAN ADMIT] - 1 Week (Please follow-up with cardiology in 1 week for outpatient nuclear stress test) Spring Brooks MD [Primary Care Provider] -
== END 2025-02-04 14:10 | disposition home or self-care (01) ==
LOC: ER 08:15 → ERHOLD 10:57 → 2ND 12:39
PROVIDERS: ADMIT Internal Medicine; ATTEND Internal Medicine
DX: R07.89 Other chest pain (principal); E11.65 Type 2 diabetes mellitus with hyperglycemia; I10 Essential (primary) hypertension; I50.22 Chronic systolic (congestive) heart failure; I25.10 Atherosclerotic heart disease of native coronary artery without angina pectoris; Z91.141 Patient's other noncompliance with medication regimen due to financial hardship; Z79.4 Long term (current) use of insulin
CPT/HCPCS: 96361; 93005; 85025; 80048; 36415; 80061; 82947 ×8; 83036; 84484 ×4; 83880; 71045; 97116; 97161; 96375; 96374; 99285; J2550; J2003; J0360 ×3; J1938; J1650; J1171 ×3; J2405; J1815 ×6; J7040 ×2; G0378